=== PATIENT | male | born 1945 | race Caucasian/White ===

== ENCOUNTER → 2016-06-22 | Outpatient (CLI) | payer MEDICARE ==
--- NOTE | 2016-06-22 12:11 | FL ---
EXAMINATION TYPE: FL UGI air w esophagus DATE OF EXAM: 06/22/2016 11:45 AM COMPARISON: NONE HISTORY: R13.12 Dysphagia oropharyngeal phase TECHNIQUE: A double contrast UGI study is performed. FINDINGS: [employer] image of the abdomen shows no gross abnormality. The esophagus shows normal motility and emptying into the stomach. No evidence of hiatal hernia or s tricture noted. Single contrast esophagram fails to demonstrate evidence for aspiration penetration. There is no evidence for mass or diverticulum. The stomach shows normal distensibility, peristalsis, and mucosal folds. No evidence of any mass or ulcer disease. No significant gastroesophageal reflux was seen during real time performance of this study. The duodenal bulb, sweep, and proximal small bowel loops are unremarkable. IMPRESSION: Normal upper GI study.
== END | disposition home or self-care (01) ==
LOC: RADFLWHC 10:55
PROVIDERS: ATTEND Family Medicine
DX: R13.12 Dysphagia, oropharyngeal phase (principal)
CPT/HCPCS: 74246

== ENCOUNTER → 2016-07-18 | Outpatient (CLI) | payer MEDICARE ==
[2016-07-21 00:43] LABS: Chicken Meat IgG < 2.0 mcg/mL (< 2.0); Pork IgG < 2.0 mcg/mL (< 2.0)
[2016-07-21 00:44] LABS: Corn IgG 2.3 mcg/mL (< 2.0); Peanut IgG < 2.0 mcg/mL (< 2.0); Potato IgG < 2.0 mcg/mL (< 2.0); Soybean IgG < 2.0 mcg/mL (< 2.0); Tomato IgG < 2.0 mcg/mL (< 2.0); Wheat IgG 3.4 mcg/mL (< 2.0)
== END | disposition home or self-care (01) ==
LOC: LABWHC1 10:52
PROVIDERS: ATTEND Otolaryngology
DX: J30.89 Other allergic rhinitis (principal)
CPT/HCPCS: 36415; 86001

== ENCOUNTER → 2016-08-24 | Outpatient (CLI) | payer MEDICARE ==
[2016-08-24 10:42] LABS: Blood Urea Nitrogen 16 mg/dL (9-20); Non-African American GFR(MDRD) >60 (>60 ml/min/1.73 sqM)
--- NOTE | 2016-08-24 12:35 | CT ---
EXAMINATION TYPE: CT ChestAbdPelvis w con DATE OF EXAM: 08/24/2016 COMPARISON: CT CAP February 16, 2016 and older studies. HISTORY: Lymphoma CT DLP: 3839 mGycm. Automated Exposure Control for Dose Reduction was Utilized. CONTRAST: CT scan of the thorax, abdomen and pelvis is performed with IV Contrast, patient injected with 100 ml mL of Omnipaque 300. FINDINGS: LUNGS: Exam is slightly suboptimal as there is degradation by respiratory motion artifact limiting ev aluation for subcentimeter nodularity. Dependent atelectatic change in both lung bases is present the re is no concerning parenchymal nodule or mass. No pleural effusion or pneumothorax is seen bilateral ly. MEDIASTINUM: There are no greater than 1 cm hilar or mediastinal lymph nodes. No pericardial effusi on is seen. Heart size is mildly enlarged on current study. OTHER: Small degree of bilateral gynecomastia is redemonstrated. There is right internal jugular Medi port catheter with tip in SVC redemonstrated. LIVER/GB: No significant abnormality is appreciated. PANCREAS: Some generalized fat replaced atrophy of pancreas is again seen. SPLEEN: No significant abnormality is seen. ADRENALS: Slight thickening to both adrenal glands is felt to reflect hyperplasia. KIDNEYS: No significant abnormality is seen. BOWEL: Oral contrast does not reach level of colon. There is no suspicious small or large bowel dilat ation. There are few diverticula in the sigmoid colon. There is no CT evidence for acute diverticulit is. Normal-appearing appendix is noted. GENITAL ORGANS: Heterogeneous enlarged prostate gland consistent with BPH is redemonstrated with cent ral zone calcifications. LYMPH NODES: No greater than 1cm abdominal or pelvic lymph nodes are clearly appreciated. There is 1. 5 x 1.0 cm irregular residual soft tissue aortocaval region just anterior to low-lying chronic centra l posterior right hemidiaphragm not significantly changed from most recent CT is significantly improv ed since older exams 2013. OSSEOUS STRUCTURES: Multilevel spurring in the thoracolumbar spine is seen. There is heterotopic ossi fication near left greater trochanter. There is moderate joint space loss in both hips. Vacuum disc p henomenon at several levels in the lumbar spine is seen. Spinal canal effacement or stenosis L2-L3 le collette is redemonstrated. OTHER: There is mild calcified atherosclerotic change of aorta extending into pelvic branch vessels. There is multilevel facet arthropathy in the thoracolumbar spine. Multilevel spurring in the spine is present. IMPRESSION: No evidence of new adenopathy in the thorax abdomen or pelvis. Perhaps minimal residual t issue at area of original neoplasm aortocaval region kidney level stable from most recent study.
== END | disposition home or self-care (01) ==
LOC: RADCTMAIN 10:00
PROVIDERS: ATTEND Internal Medicine Hematology & Oncology
DX: C83.33 Diffuse large B-cell lymphoma, intra-abdominal lymph nodes (principal); C83.39 Diffuse large B-cell lymphoma, extranodal and solid organ sites
CPT/HCPCS: 82565; 84520; 71260; 74177; 36415; Q9967; 70491

== ENCOUNTER → 2016-08-24 | Outpatient (CLI) | payer MEDICARE ==
--- NOTE | 2016-08-24 12:26 | CT ---
EXAMINATION TYPE: CT soft tissue neck w con DATE OF EXAM: 08/24/2016 HISTORY: Vocal cord paralysis COMPARISON: NONE CT DLP: 796 mGycm. Automated Exposure Control for Dose Reduction was Utilized. TECHNIQUE: CT scan of the neck is performed with IV Contrast, patient injected with 100 ml mL of Omn ipaque 300, axial images are obtained, coronal and sagittal reformatted images are reviewed. FINDINGS: Airway: No gross abnormality seen. Parotid/submandibular glands: No gross abnormality seen. Carotid/Vascular Structures: There is mild to moderate mixed plaque at carotid bulb level bilaterally extending into proximal internal carotid arteries, left slightly more prominent than right. No signi ficant stenosis is evident. Osseous Structures: There is moderate disc space narrowing and spurring C5-C6 and C6-C7 levels. Other: There is partial visualization of right internal jugular Mediport catheter. Please refer to same day CT cap report for complete details of the upper thorax. No suspicious greater than 1 cm neck adenopathy is clearly seen bilaterally. IMPRESSION: No significant abnormality is seen to account for patient's symptoms.
== END | disposition home or self-care (01) ==
LOC: RADCTMAIN 09:49
PROVIDERS: ATTEND Otolaryngology
DX: J38.01 Paralysis of vocal cords and larynx, unilateral (principal)
CPT/HCPCS: 70491; 36415; Q9967

== ENCOUNTER 2016-10-10 07:13 | Emergency (ER) | payer MEDICARE ==
[2016-10-10] MEDS ORDERED: SODIUM CHLORIDE 0.9% 1,000 ML IV STA (07:39)
[2016-10-10] MEDS ORDERED: RX INFO: IV CONTRAST WAS GIVEN 1 EACH MISC MISCELLANE PRN (07:39)
--- NOTE | 2016-10-10 07:43 | ED ---
General Adult HPI - General Chief complaint: Abdominal Pain Stated complaint: abd pain Time Seen by Provider: 10/10/16 07:30 Source: patient, family, RN notes reviewed Mode of arrival: ambulatory Limitations: no limitations - History of Present Illness Initial comments: Patient is a pleasant 71-year-old male presenting to the emergency department complaining of abdominal discomfort and constipation. Patient has felt constipated the past 2 or 3 days. Patient is starting to get discomfort to his lower abdomen, more so on the left side. Patient is having urinary frequency and urgency and decreased amounts. No dysuria. No fevers. No diarrhea. No nausea vomiting. No fevers. No history of similar symptoms previously. - Related Data Home Medications Medication Instructions Recorded Confirmed Multivitamins, Thera [Multivitamin 1 tab PO DAILY 07/16/13 10/10/16 (formulary)] Simvastatin [Simvastatin] 20 mg PO HS 07/17/13 10/10/16 Antiarthritic Combination No.2 1 tab PO BID 09/11/13 10/10/16 [Glucosamine-Chondroitin] Fish Oil/Dha/Epa [Fish Oil 1,200 1 cap PO BID 07/01/16 10/10/16 mg Fish Oil] metFORMIN HCL [Glucophage] 1 tab PO BID 07/01/16 10/10/16 Acetaminophen [Tylenol] 650 mg PO DAILY PRN 10/10/16 10/10/16 Apixaban [Eliquis] 5 mg PO BID 10/10/16 10/10/16 Diltiazem HCl 120 mg PO BID 10/10/16 10/10/16 Previous Rx's Medication Instructions Recorded Hydrocodone/Acetaminophen [[place] 2 each PO Q6HR PRN #20 tab 10/10/16 5-325] Tamsulosin [Flomax] 0.4 mg PO DAILY #14 cap 10/10/16 Allergies Allergy/AdvReac Type Severity Reaction Status Date / Time lactose AdvReac Diarrhea Verified 10/10/16 08:39 Review of Systems ROS Statement: Those systems with pertinent positive or pertinent negative responses have been documented in the HPI. ROS Other: All systems not noted in ROS Statement are negative. Constitutional: Denies: fever Eyes: Denies: eye pain ENT: Denies: ear pain Respiratory: Denies: cough Cardiovascular: Denies: chest pain Endocrine: Denies: fatigue Gastrointestinal: Reports: abdominal pain, constipation. Denies: nausea, vomiting, diarrhea Genitourinary: Reports: urgency, frequency. Denies: dysuria, hematuria, discharge Musculoskeletal: Denies: back pain Skin: Denies: rash Neurological: Denies: weakness Past Medical History Past Medical History: Atrial Flutter, Cancer, Diabetes Mellitus, Hyperlipidemia , Hypertension, Osteoarthritis (OA), Skin Disorder Additional Past Medical History / Comment(s): sinus problems, ventral hernia, eczema, arthritis; FOUND TO HAVE ABD MASS, NEAR AORTA AND VENA CAVA -. 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 Past Anesthesia/Blood Transfusion Reactions: No Reported Reaction Past Psychological History: No Psychological Hx Reported Smoking Status: Former smoker Past Alcohol Use History: Rare Past Drug Use History: None Reported - Past Family History Sister(s) Family Medical History: Cancer General Exam Limitations: no limitations General appearance: alert, in no apparent distress Head exam: Present: atraumatic, normocephalic Eye exam: Present: normal appearance, PERRL ENT exam: Present: normal oropharynx Neck exam: Present: normal inspection Respiratory exam: Present: normal lung sounds bilaterally Cardiovascular Exam: Present: regular rate, normal rhythm Expanded Peripheral pulses: 2+: Posterior Tibialis (R), Posterior Tibialis (L) GI/Abdominal exam: Present: soft, tenderness (Mild tenderness in the umbilical, suprapubic, and left lower quadrant.), normal bowel sounds. Absent: distended, guarding, rebound, rigid, pulsatile mass Extremities exam: Present: normal inspection. Absent: pedal edema, calf tenderness Neurological exam: Present: alert Psychiatric exam: Present: normal affect, normal mood Skin exam: Present: normal color Course Vital Signs 10/10/16 10/10/16 10/10/16 07:14 07:29 08:47 Temperature 97.0 F L Pulse Rate 67 71 Respiratory 17 19 Rate Blood Pressure 207/88 199/88 171/79 O2 Sat by Pulse 97 93 L Oximetry Medical Decision Making - Medical Decision Making Patient reexamined and resting comfortably in bed. Patient and family were updated on results. - Lab Data Result diagrams: 10/10/16 08:17 10/10/16 08:17 Lab Results 10/10/16 10/10/16 10/10/16 Range/Units 07:22 08:17 08:17 WBC 9.7 (3.8-10.6) k/uL RBC 5.25 (4.30-5.90) m/uL Hgb 15.5 (13.0-17.5) gm/dL Hct 45.4 (39.0-53.0) % MCV 86.4 (80.0-100.0) fL MCH 29.5 (25.0-35.0) pg MCHC 34.1 (31.0-37.0) g/dL RDW 14.2 (11.5-15.5) % Plt Count 132 L (150-450) k/uL Neutrophils % 76 % Lymphocytes % 14 % Monocytes % 7 % Eosinophils % 1 % Basophils % 0 % Neutrophils # 7.4 (1.3-7.7) k/uL Lymphocytes # 1.4 (1.0-4.8) k/uL Monocytes # 0.6 (0-1.0) k/uL Eosinophils # 0.1 (0-0.7) k/uL Basophils # 0.0 (0-0.2) k/uL PT (9.0-12.0) sec INR (<1.2) APTT (22.0-30.0) sec Sodium 139 (137-145) mmol/L Potassium 5.1 (3.5-5.1) mmol/L Chloride 107 (98-107) mmol/L Carbon Dioxide 20 L (22-30) mmol/L Anion Gap 12 mmol/L BUN 17 (9-20) mg/dL Creatinine 0.82 (0.66-1.25) mg/dL Est GFR (MDRD) Af Amer >60 (>60 ml/min/1.73 sqM) Est GFR (MDRD) Non-Af >60 (>60 ml/min/1.73 sqM) Glucose 164 H (74-99) mg/dL Calcium 8.8 (8.4-10.2) mg/dL Total Bilirubin 1.4 H (0.2-1.3) mg/dL AST 59 (17-59) U/L ALT 26 (21-72) U/L Alkaline Phosphatase 85 (38-126) U/L Total Protein 7.7 (6.3-8.2) g/dL Albumin 4.6 (3.5-5.0) g/dL Amylase <30 L (30-110) U/L Lipase 36 (23-300) U/L Urine Color Light Yellow Urine Appearance Clear (Clear) Urine pH 7.0 (5.0-8.0) Ur Specific [place] 1.009 (1.001-1.035) Urine Protein Trace H (Negative) Urine Glucose (UA) 2+ H (Negative) Urine Ketones Negative (Negative) Urine Blood Moderate H (Negative) Urine Nitrite Negative (Negative) Urine Bilirubin Negative (Negative) Urine Urobilinogen <2.0 (<2.0) mg/dL Ur Leukocyte Esterase Negative (Negative) Urine RBC 4 (0-5) /hpf Urine WBC 1 (0-5) /hpf Urine Mucus Rare H (None) /hpf /09/19 Range/Units 08:17 WBC (3.8-10.6) k/uL RBC (4.30-5.90) m/uL Hgb (13.0-17.5) gm/dL Hct (39.0-53.0) % MCV (80.0-100.0) fL MCH (25.0-35.0) pg MCHC (31.0-37.0) g/dL RDW (11.5-15.5) % Plt Count (150-450) k/uL Neutrophils % % Lymphocytes % % Monocytes % % Eosinophils % % Basophils % % Neutrophils # (1.3-7.7) k/uL Lymphocytes # (1.0-4.8) k/uL Monocytes # (0-1.0) k/uL Eosinophils # (0-0.7) k/uL Basophils # (0-0.2) k/uL PT 11.8 (9.0-12.0) sec INR 1.2 H (<1.2) APTT 24.1 (22.0-30.0) sec Sodium (137-145) mmol/L Potassium (3.5-5.1) mmol/L Chloride (98-107) mmol/L Carbon Dioxide (22-30) mmol/L Anion Gap mmol/L BUN (9-20) mg/dL Creatinine (0.66-1.25) mg/dL Est GFR (MDRD) Af Amer (>60 ml/min/1.73 sqM) Est GFR (MDRD) Non-Af (>60 ml/min/1.73 sqM) Glucose (74-99) mg/dL Calcium (8.4-10.2) mg/dL Total Bilirubin (0.2-1.3) mg/dL AST (17-59) U/L ALT (21-72) U/L Alkaline Phosphatase (38-126) U/L Total Protein (6.3-8.2) g/dL Albumin (3.5-5.0) g/dL Amylase (30-110) U/L Lipase (23-300) U/L Urine Color Urine Appearance (Clear) Urine pH (5.0-8.0) Ur Specific [place] (1.001-1.035) Urine Protein (Negative) Urine Glucose (UA) (Negative) Urine Ketones (Negative) Urine Blood (Negative) Urine Nitrite (Negative) Urine Bilirubin (Negative) Urine Urobilinogen (<2.0) mg/dL Ur Leukocyte Esterase (Negative) Urine RBC (0-5) /hpf Urine WBC (0-5) /hpf Urine Mucus (None) /hpf - Radiology Data Radiology results: report reviewed (Computed tomography scan of the abdomen pelvis shows 2 mm calculi near the left UVJ.) Disposition Clinical Impression: Ureterolithiasis Disposition: HOME SELF-CARE Condition: Stable Instructions: Kidney Stones (ED) Additional Instructions: Please follow-up with your doctor in the next couple days for recheck. Return for increased pain, fever, vomiting, worsening symptoms or other concerns. Prescriptions: Hydrocodone/Acetaminophen [[place] 5-325] 2 each PO Q6HR PRN #20 tab PRN Reason: Pain Tamsulosin [Flomax] 0.4 mg PO DAILY #14 cap Referrals: Marysol Easley MD [Primary Care Provider] - 1-2 days Time of Disposition: 10:10
[2016-10-10 08:10] LABS: Appearance,Urine Clear (Clear); Bilirubin,Urine Negative (Negative); Glucose,Urine (UA) 2+ (Negative); Ketones,Urine Negative (Negative); Leukocyte Esterase,Urine Negative (Negative); Mucus,Urine Rare /hpf; Nitrite,Urine Negative (Negative); Particle Count 376; Protein,Urine Trace (Negative); RBC,Urine 4 /hpf (0-5); Specific Gravity,Urine 1.009 (1.001-1.035); UA Billing (MACRO vs. MICRO) MICRO; Urobilinogen,Urine <2.0 mg/dL (<2.0); WBC,Urine 1 /hpf (0-5)
[2016-10-10 08:52] LABS: Basophils % (A) 0 %; CH 29.7; CHCM 34.4; Eosinophils # (A) 0.1 k/uL (0-0.7); Eosinophils % (A) 1 %; HCT 45.4 % (39.0-53.0); HDW 3.18; HGB 15.5 gm/dL (13.0-17.5); Luc # (Auto) 0.23; Luc % (Auto) 2; Lymphocytes # (A) 1.4 k/uL (1.0-4.8); Lymphocytes % (A) 14 %; MCH 29.5 pg (25.0-35.0); MCHC 34.1 g/dL (31.0-37.0); MCV 86.4 fL (80.0-100.0); Mean Platelet Volume 6.7; Monocytes # (A) 0.6 k/uL (0-1.0); Monocytes % (A) 7 %; Neutrophils # (A) 7.4 k/uL (1.3-7.7); Neutrophils % (A) 76 %; RBC 5.25 m/uL (4.30-5.90); RDW 14.2 % (11.5-15.5); WBC 9.7 k/uL (3.8-10.6)
[2016-10-10 08:54] LABS: ALT 26 U/L (21-72); AST 59 U/L (17-59); Alkaline Phosphatase 85 U/L (38-126); Amylase <30 U/L (30-110); Anion Gap 12 mmol/L; Blood Urea Nitrogen 17 mg/dL (9-20); Calcium 8.8 mg/dL (8.4-10.2); Carbon Dioxide 20 mmol/L (22-30); Chloride 107 mmol/L (98-107); Glucose 164 mg/dL (74-99); Non-African American GFR(MDRD) >60 (>60 ml/min/1.73 sqM); Sodium 139 mmol/L (137-145); Total Bilirubin 1.4 mg/dL (0.2-1.3); Total Protein 7.7 g/dL (6.3-8.2)
[2016-10-10 08:56] LABS: Potassium 5.1 mmol/L (3.5-5.1)
[2016-10-10 08:57] LABS: INR 1.2 (<1.2); Partial Thromboplastin Time 24.1 sec (22.0-30.0); Prothrombin Time 11.8 sec (9.0-12.0)
--- NOTE | 2016-10-10 09:41 | CT ---
EXAMINATION TYPE: CT abdomen pelvis w con DATE OF EXAM: 10/10/2016 COMPARISON: 08/24/2016 and to 12/12/2014 HISTORY: constipation, frequent urination, history of lymphoma CT DLP: 1762 mGycm Automated exposure control for dose reduction was used. TECHNIQUE: Helical acquisition of images was performed from the lung bases through the pelvis. CONTRAST: Performed without Oral Contrast and with IV Contrast, patient injected with 100 mL of Omnipaque 300. FINDINGS: LUNG BASES: Bilateral subsegmental dependent atelectasis. LIVER/GB: No significant abnormality is appreciated. PANCREAS: Mild pancreatic atrophy and few nonenlarged peripancreatic lymph nodes are present. SPLEEN: No significant abnormality is seen. ADRENALS: Bilateral adrenal gland nodularity has been present dating back to 12/12/2014 and most likel y represents adrenal gland hyperplasia. KIDNEYS: There is mild left perinephric fat stranding, blunting of the major and minor calyces, engor gement of the renal pelvis, and mild hydroureter all secondary to a punctate 2 mm obstructing calculu s approximately 2 cm from the ureterovesicular junction. Impression upon the posterior urinary bladde r is seen from an enlarged, heterogenous, nodular prostate gland. There is mild decrease enhancement of the left kidney in comparison to the right, relating to mild de crease in function due to the acute obstruction. FREE AIR: No free air is visualized. ABDOMINOPELVIC ADENOPATHY: 1.0 cm aortocaval lymph node is stable from the prior exams. No evidence of adenopathy is seen within the abdomen or pelvis. OSSEOUS STRUCTURES: Multilevel degenerative changes seen of the thoracolumbar and lumbosacral spine as well as the femoral acetabular joints with heterotopic ossification again noted of the left greate r trochanter. Old, healed posterior right lower rib fractures are noted. BOWEL: Sigmoid diverticulosis without evidence of diverticulitis OTHER: The abdominal aorta is of normal course and caliber. Mild calcific atheromatous changes are se en of the abdominal aorta and its branches. IMPRESSION: 1. OBSTRUCTING 2 MM CALCULUS APPROXIMATELY 2 CM FROM THE LEFT URETEROVESICULAR JUNCTION WITHIN THE DI STAL URETER CREATING MILD HYDROURETERONEPHROSIS, ASYMMETRIC RENAL FUNCTION, AND PERINEPHRIC FAT STRAN DING. NO PERINEPHRIC ABSCESS. 2. NO EVIDENCE OF ABDOMINOPELVIC ADENOPATHY.
[2016-10-10 10:24] VITALS: BP 163/75; PULSE 76; RESP 18; TEMP 98.1
== END 2016-10-10 10:24 | disposition home or self-care (01) ==
LOC: EC 07:13
DX: N20.1 Calculus of ureter (principal); I48.92 Unspecified atrial flutter; E11.9 Type 2 diabetes mellitus without complications; E78.5 Hyperlipidemia, unspecified; I10 Essential (primary) hypertension; M19.90 Unspecified osteoarthritis, unspecified site; Z85.72 Personal history of non-Hodgkin lymphomas; Z87.891 Personal history of nicotine dependence; Z91.011 Allergy to milk products; Z79.01 Long term (current) use of anticoagulants; Z79.84 Long term (current) use of oral hypoglycemic drugs; Z79.899 Other long term (current) drug therapy
CPT/HCPCS: 99284; 96360; 96361; 51798; 36415; 80053; 82150; 83690; 85025; 85610; 85730; 81001; 74177; Q9967

== ENCOUNTER 2016-12-05 08:39 | Emergency (ER) | payer MEDICARE ==
[2016-12-05] MEDS ORDERED: SODIUM CHLORIDE 0.9% 1,000 ML IV STA (09:42)
--- NOTE | 2016-12-05 09:45 | ED ---
General Adult HPI - General Chief complaint: Back Pain/Injury Stated complaint: Back Pain Time Seen by Provider: 12/05/16 09:29 Source: patient, RN notes reviewed Mode of arrival: ambulatory Limitations: no limitations - History of Present Illness Initial comments: Patient is a 71-year-old male significant past medical history for kidney stones , who presents emergency room today with a chief complaint of left lower back pain over the last week. He does not feel somewhat similar to kidney stones that is had in the past. He states he did take some [place] 7.5 for this. He states this time is feeling more,abdominal time urinating as well. Patient currently rates pain 5/10. He states is relatively comfortable. Denies any other complaints or symptoms currently. Patient denies any recent fever, chills , shortness of breath, chest pain, abdominal pain, nausea or vomiting, numbness or tingling, dysuria or hematuria, diarrhea, headaches or visual changes, or any other complaints. - Related Data Home Medications Medication Instructions Recorded Confirmed Multivitamins, Thera [Multivitamin 1 tab PO DAILY 07/16/13 12/05/16 (formulary)] Antiarthritic Combination No.2 900 mg PO BID 09/11/13 12/05/16 [Glucosamine-Chondroitin] Fish Oil/Dha/Epa [Fish Oil 1,200 1 cap PO BID 07/01/16 12/05/16 mg Fish Oil] metFORMIN HCL [Glucophage] 500 mg PO BID 07/01/16 12/05/16 Apixaban [Eliquis] 5 mg PO BID 10/10/16 12/05/16 Diltiazem HCl 120 mg PO BID 10/10/16 12/05/16 Simvastatin [Zocor] 20 mg PO HS 12/05/16 12/05/16 Previous Rx's Medication Instructions Recorded Ciprofloxacin HCl [Cipro] 500 mg PO Q12HR #14 day 12/05/16 Tamsulosin [Flomax] 0.4 mg PO DAILY #3 cap 12/05/16 Allergies Allergy/AdvReac Type Severity Reaction Status Date / Time lactose AdvReac Diarrhea Verified 12/05/16 10:14 Review of Systems ROS Statement: Those systems with pertinent positive or pertinent negative responses have been documented in the HPI. ROS Other: All systems not noted in ROS Statement are negative. Past Medical History Past Medical History: Atrial Flutter, Cancer, Diabetes Mellitus, Hyperlipidemia , Hypertension, Osteoarthritis (OA), Skin Disorder Additional Past Medical History / Comment(s): sinus problems, ventral hernia, eczema, arthritis; FOUND TO HAVE ABD MASS, NEAR AORTA AND VENA CAVA -. 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 Past Anesthesia/Blood Transfusion Reactions: No Reported Reaction Past Psychological History: No Psychological Hx Reported Smoking Status: Former smoker Past Alcohol Use History: Rare Past Drug Use History: None Reported - Past Family History Sister(s) Family Medical History: Cancer General Exam - General Exam Comments Initial Comments: General: The patient is awake and alert, in no distress, and does not appear acutely ill. Eye: Pupils are equal, round and reactive to light, extra-ocular movements are intact. No nystagmus. There is normal conjunctiva bilaterally. No signs of icterus. Ears, nose, mouth and throat: There are moist mucous membranes and no oral lesions. Neck: The neck is supple, there is no tenderness or JVD. Cardiovascular: There is a regular rate and rhythm. No murmur, rub or gallop is appreciated. Respiratory: Lungs are clear to auscultation, respirations are non-labored, breath sounds are equal. No wheezes, stridor, rales, or rhonchi. Gastrointestinal: Soft, non-distended, non-tender abdomen without masses or organomegaly noted. There is no rebound or guarding present. No CVA tenderness. Bowel sounds are unremarkable. Musculoskeletal: Normal ROM, no tenderness. Strength 5/5. Sensation intact. Pulses equal bilaterally 2+. Neurological: A&O x 3. CN II-XII intact, There are no obvious motor or sensory deficits. Coordination appears grossly intact. Speech is normal. Skin: Skin is warm and dry and no rashes or lesions are noted. Psychiatric: Cooperative, appropriate mood & affect, normal judgment. Limitations: no limitations Course Vital Signs 12/05/16 09:03 Temperature 98.2 F Pulse Rate 63 Respiratory 18 Rate Blood Pressure 165/74 O2 Sat by Pulse 97 Oximetry Medical Decision Making - Medical Decision Making Patient's CT reviewed and does show left-sided UVJ stone measuring 4 mm. Patient's labs been reviewed. Small amount of white cells in the urinalysis. Will be covered with antibiotic. Patient's resting comfortably here in the emergency room setting any pain medication. Patient will be discharged home with Flomax, antibiotic. He states he will use Tylenol for pain as needed. He does have [place] as well. Patient advised follow-up the family doctor or urologist over the next 2 days return to emergency room if any symptoms increase or worsen or for any other concerns. - Lab Data Result diagrams: 12/05/16 09:51 12/05/16 09:51 Lab Results 12/05/16 12/05/16 12/05/16 Range/Units 09:51 09:51 09:51 WBC 11.1 H (3.8-10.6) k/uL RBC 4.91 (4.30-5.90) m/uL Hgb 14.2 (13.0-17.5) gm/dL Hct 43.1 (39.0-53.0) % MCV 87.9 (80.0-100.0) fL MCH 29.0 (25.0-35.0) pg MCHC 33.0 (31.0-37.0) g/dL RDW 15.2 (11.5-15.5) % Plt Count 162 (150-450) k/uL Neutrophils % 76 % Lymphocytes % 13 % Monocytes % 7 % Eosinophils % 1 % Basophils % 0 % Neutrophils # 8.4 H (1.3-7.7) k/uL Lymphocytes # 1.4 (1.0-4.8) k/uL Monocytes # 0.8 (0-1.0) k/uL Eosinophils # 0.1 (0-0.7) k/uL Basophils # 0.1 (0-0.2) k/uL Sodium 141 (137-145) mmol/L Potassium 4.1 (3.5-5.1) mmol/L Chloride 107 (98-107) mmol/L Carbon Dioxide 23 (22-30) mmol/L Anion Gap 11 mmol/L BUN 16 (9-20) mg/dL Creatinine 0.78 (0.66-1.25) mg/dL Est GFR (MDRD) Af Amer >60 (>60 ml/min/1.73 sqM) Est GFR (MDRD) Non-Af >60 (>60 ml/min/1.73 sqM) Glucose 142 H (74-99) mg/dL Calcium 8.8 (8.4-10.2) mg/dL Total Bilirubin 0.5 (0.2-1.3) mg/dL AST 21 (17-59) U/L ALT 28 (21-72) U/L Alkaline Phosphatase 70 (38-126) U/L Total Protein 7.4 (6.3-8.2) g/dL Albumin 4.2 (3.5-5.0) g/dL Amylase <30 L (30-110) U/L Lipase 47 (23-300) U/L Urine Color Yellow Urine Appearance Clear (Clear) Urine pH 6.0 (5.0-8.0) Ur Specific [place] 1.007 (1.001-1.035) Urine Protein Negative (Negative) Urine Glucose (UA) Negative (Negative) Urine Ketones Negative (Negative) Urine Blood Moderate H (Negative) Urine Nitrite Negative (Negative) Urine Bilirubin Negative (Negative) Urine Urobilinogen <2.0 (<2.0) mg/dL Ur Leukocyte Esterase Moderate H (Negative) Urine RBC 11 H (0-5) /hpf Urine WBC 23 H (0-5) /hpf Urine Bacteria Rare H (None) /hpf Urine Mucus Rare H (None) /hpf Disposition Clinical Impression: Kidney stone Disposition: HOME SELF-CARE Condition: Good Instructions: Kidney Stones (ED) Additional Instructions: Please use medication as discussed. Please follow-up with family doctor in the next 2 days of symptoms have not improved. Please return to emergency room if the symptoms increase or worsen or for any other concerns. Prescriptions: Ciprofloxacin HCl [Cipro] 500 mg PO Q12HR #14 day Tamsulosin [Flomax] 0.4 mg PO DAILY #3 cap Referrals: Marysol Easley MD [Primary Care Provider] - 1-2 days Time of Disposition: 11:47
[2016-12-05 10:11] LABS: Basophils # (A) 0.1 k/uL (0-0.2); Basophils % (A) 0 %; CH 28.9; CHCM 32.9; Eosinophils # (A) 0.1 k/uL (0-0.7); Eosinophils % (A) 1 %; HCT 43.1 % (39.0-53.0); HDW 3.02; HGB 14.2 gm/dL (13.0-17.5); Luc # (Auto) 0.34; Luc % (Auto) 3; Lymphocytes # (A) 1.4 k/uL (1.0-4.8); Lymphocytes % (A) 13 %; MCV 87.9 fL (80.0-100.0); Mean Platelet Volume 6.7; Monocytes # (A) 0.8 k/uL (0-1.0); Monocytes % (A) 7 %; Neutrophils # (A) 8.4 k/uL (1.3-7.7); Neutrophils % (A) 76 %; RBC 4.91 m/uL (4.30-5.90); RDW 15.2 % (11.5-15.5); WBC 11.1 k/uL (3.8-10.6); WBC (Perox) 10.55
[2016-12-05 10:14] LABS: Appearance,Urine Clear (Clear); Bacteria,Urine Rare /hpf; Bilirubin,Urine Negative (Negative); Glucose,Urine (UA) Negative (Negative); Ketones,Urine Negative (Negative); Leukocyte Esterase,Urine Moderate (Negative); Mucus,Urine Rare /hpf; Nitrite,Urine Negative (Negative); Particle Count 1271; Protein,Urine Negative (Negative); RBC,Urine 11 /hpf (0-5); Specific Gravity,Urine 1.007 (1.001-1.035); UA Billing (MACRO vs. MICRO) MICRO; Urobilinogen,Urine <2.0 mg/dL (<2.0); WBC,Urine 23 /hpf (0-5)
--- NOTE | 2016-12-05 10:15 | XR ---
EXAMINATION TYPE: XR KUB DATE OF EXAM: 12/05/2016 COMPARISON: NONE HISTORY: Pain TECHNIQUE: Single supine KUB image of the abdomen is obtained FINDINGS: Small bowel demonstrates no evidence for dilatation or air fluid levels. Gas and fecal material is seen in non-distended colon. No convincing evidence for pneumoperitoneum. No unusual calcifications. The lung bases are clear. The osseous structures are intact. IMPRESSION: 1. Overall nonobstructive bowel gas pattern.
[2016-12-05 10:18] LABS: ALT 28 U/L (21-72); AST 21 U/L (17-59); Alkaline Phosphatase 70 U/L (38-126); Amylase <30 U/L (30-110); Anion Gap 11 mmol/L; Blood Urea Nitrogen 16 mg/dL (9-20); Calcium 8.8 mg/dL (8.4-10.2); Carbon Dioxide 23 mmol/L (22-30); Chloride 107 mmol/L (98-107); Glucose 142 mg/dL (74-99); Non-African American GFR(MDRD) >60 (>60 ml/min/1.73 sqM); Potassium 4.1 mmol/L (3.5-5.1); Sodium 141 mmol/L (137-145); Total Bilirubin 0.5 mg/dL (0.2-1.3); Total Protein 7.4 g/dL (6.3-8.2)
--- NOTE | 2016-12-05 11:11 | CT ---
EXAMINATION TYPE: CT abdomen pelvis wo con DATE OF EXAM: 12/05/2016 COMPARISON: NONE HISTORY: Patient complains of left flank pain and gross hematuria. Patient has a history of prior st ones. CT DLP: 1232.4 mGycm Examination of the solid and hollow viscera is limited given the lack of contrast. FINDINGS: LUNG BASES: No evidence for nodule. No evidence for infiltrate. LIVER/GB: The gallbladder is unremarkable. No space-occupying hepatic lesion. PANCREAS: No pancreatic mass identified. No inflammatory process seen. SPLEEN: No evidence for splenomegaly. No intrasplenic lesions seen. ADRENALS: Nonspecific adrenal nodularity. KIDNEYS: Mild left-sided hydroureteronephrosis secondary to a distal left ureteral 3.9 mm calculus. C alculus is approximately 4 cm from the UVJ. No additional renal calculi seen. Mild left renal strandi ng. Superimposed infection is not excluded. No renal masses identified at this time.. BOWEL: Appendix has a normal appearance. No evidence of bowel obstruction. No inflammatory process. Lymph nodes: No evidence for adenopathy greater than 1 cm. Abdominal aorta: Atheromatous changes seen. No evidence for aneurysm. Genital organs: Prostate glandular enlargement and calcifications. Other: No significant abnormality. IMPRESSION: Mild left-sided hydroureteronephrosis secondary to a distal left ureteral 3.9 mm calculus. Calculus i s approximately 4 cm from the UVJ.
[2016-12-05 12:00] VITALS: PULSE 77; RESP 16; TEMP 97.9
[2016-12-05 17:21] VITALS: BP 177/83
== END 2016-12-05 12:40 | disposition home or self-care (01) ==
LOC: EC 08:39
DX: N20.0 Calculus of kidney (principal); E78.5 Hyperlipidemia, unspecified; I10 Essential (primary) hypertension; E11.9 Type 2 diabetes mellitus without complications; M19.90 Unspecified osteoarthritis, unspecified site; Z87.891 Personal history of nicotine dependence; Z79.01 Long term (current) use of anticoagulants; Z79.84 Long term (current) use of oral hypoglycemic drugs; Z79.899 Other long term (current) drug therapy; Z91.048 Other nonmedicinal substance allergy status; Z86.79 Personal history of other diseases of the circulatory system
CPT/HCPCS: 99284 ×2; 96374 ×2; 96361 ×2; 36415; 80053; 82150; 83690; 85025; 81001; 74000; 74176; J1642

== ENCOUNTER → 2017-03-17 | Outpatient (CLI) | payer MEDICARE ==
[2017-03-17 14:30] LABS: Blood Urea Nitrogen 16 mg/dL (9-20)
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
== END | disposition home or self-care (01) ==
LOC: RADPROMAIN 13:52
PROVIDERS: ATTEND Internal Medicine Hematology & Oncology
DX: C83.33 Diffuse large B-cell lymphoma, intra-abdominal lymph nodes (principal); C83.39 Diffuse large B-cell lymphoma, extranodal and solid organ sites; E27.9 Disorder of adrenal gland, unspecified
CPT/HCPCS: 82565; 84520; 71260; 74177; Q9967; J1642

== ENCOUNTER → 2017-09-19 | Outpatient (CLI) | payer MEDICARE ==
[2017-09-19 14:46] LABS: Blood Urea Nitrogen 19 mg/dL (9-20)
--- NOTE | 2017-09-19 15:36 | CT ---
EXAMINATION TYPE: CT ChestAbdPelvis w con DATE OF EXAM: 09/19/2017 COMPARISON: 03/17/2017 and 12/05/2016 HISTORY: 72-year-old male with history of non-Hodgkin's lymphoma. TECHNIQUE: Contiguous axial scanning of the chest, abdomen, and pelvis performed with IV Contrast, pa tient injected with 100 mL of Isovue M300. Delayed images through the kidneys were obtained. Coronal/ sagittal reconstructions performed. CT DLP: 2788.2 mGycm Automated exposure control for dose reduction was used. FINDINGS: Chest: Right anterior chest wall injection port with catheter tip at the lower SVC. Heart normal size without pericardial effusion. Coronary vessel calcifications are present. Aorta normal caliber with conventional branching anatomy and very mild atherosclerotic arch calcifica tions. Large caliber to the main right and left pulmonary arteries at 2.8 and 2.5 cm, respectively, suggesti ng underlying pulmonary arterial hypertension. No thoracic lymphadenopathy by CT size criteria. Mild bilateral gynecomastia is noted. Some reticular changes in the lower lungs could represent underlying interstitial scarring/fibrosis. No consolidation or pleural effusion. ABDOMEN: Large patient body habitus causing artifact limiting detailed assessment of the liver. Portal venous system appears patent. No biliary ductal dilatation. Gallbladder, kidneys, spleen, and pancreas appear within normal limits. Stable mild diffuse thickening of the bilateral adrenal glands suggesting adrenal hyperplasia. No dilated small bowel, free fluid, or free air. No mesenteric or retroperitoneal lymphadenopathy. Normal appendix. No significant stool burden. Mild proximal sigmoid diverticulosis without pericoloni c inflammatory change. PELVIS: Prostate gland enlargement 5.2 cm wide. Bladder incompletely distended. No abnormal fluid collection in the pelvis or pelvic lymphadenopathy. BONES: Degenerative changes at the hips and SI joints. Bridging anterior endplate spondylosis compatible wit h DISH. Degenerative changes mid to lower lumbar spine with grade 1 anterolisthesis L5-S1. No osseous destructive process seen. IMPRESSION: 1. STABLE EXAM WITHOUT SUSPICIOUS LYMPHADENOPATHY OR MASS TO SUGGEST RECURRENT DISEASE. 2. POSSIBLE UNDERLYING PULMONARY ARTERIAL HYPERTENSION, STABLE CHANGES OF THE ADRENAL GLANDS LIKELY R EFLECTING ADRENAL HYPERPLASIA, MILD PROXIMAL SIGMOID DIVERTICULOSIS, AND PROSTATOMEGALY (5.2 CM WIDE) .
== END | disposition home or self-care (01) ==
LOC: RADPROMAIN 13:29
PROVIDERS: ATTEND Internal Medicine Hematology & Oncology
DX: Z08 Encounter for follow-up examination after completed treatment for malignant neoplasm (principal); Z85.72 Personal history of non-Hodgkin lymphomas
CPT/HCPCS: 82565; 84520; 71260; 74177; J1642; Q9967

== ENCOUNTER → 2018-03-16 | Outpatient (CLI) | payer MEDICARE ==
[2018-03-16 12:16] LABS: Blood Urea Nitrogen 20 mg/dL (9-20)
--- NOTE | 2018-03-16 13:45 | CT ---
EXAMINATION TYPE: CT ChestAbdPelvis w con DATE OF EXAM: 03/16/2018 COMPARISON: 09/19/2017 HISTORY: Follow up of lymphoma CT DLP: 3272.6 mGycm Automated exposure control for dose reduction was used. CONTRAST: CT scan of the chest, abdomen and pelvis is performed with Oral Contrast and with IV Contrast, patien t injected with 100 mL of Isovue 300. FINDINGS: CHEST: Right anterior chest wall injection port with catheter tip at the lower SVC. Heart normal size withou t pericardial effusion. Coronary vessel calcifications are present. Aorta normal caliber with conventional branching anatomy and very mild atherosclerotic arch calcifica tions. Large caliber to the main right and left pulmonary arteries at 2.8 and 2.5 cm, respectively, suggesti ng underlying pulmonary arterial hypertension. No thoracic lymphadenopathy by CT size criteria. Mild bilateral gynecomastia is noted. Some reticular changes in the lower lungs could represent underlying interstitial scarring/fibrosis. No consolidation or pleural effusion. Pleural-based triangular density in the right lower lobe is sta ble likely inflammatory and related to pleural thickening. ABDOMEN: Large patient body habitus causing artifact limiting detailed assessment of the liver. Portal venous system appears patent. No biliary ductal dilatation. Gallbladder, kidneys, spleen, and pancreas appear within normal limits. Stable mild diffuse thickening of the bilateral adrenal glands suggesting adrenal hyperplasia. No dil ated small bowel, free fluid, or free air. No mesenteric or retroperitoneal lymphadenopathy. Normal appendix. No significant stool burden. Mild proximal sigmoid diverticulosis without pericolonic inflammatory change. PELVIS: Prostate gland enlargement 5.2 cm wide. Bladder incompletely distended. No abnormal fluid collection in the pelvis or pelvic lymphadenopathy. BONES: Degenerative changes at the hips and SI joints. Bridging anterior endplate spondylosis compati ble with DISH. Degenerative changes mid to lower lumbar spine with grade 1 anterolisthesis L5-S1. No osseous destructive process seen. IMPRESSION: 1. STABLE EXAM WITHOUT SUSPICIOUS LYMPHADENOPATHY OR MASS TO SUGGEST RECURRENT DISEASE. 2. POSSIBLE U NDERLYING PULMONARY ARTERIAL HYPERTENSION, STABLE CHANGES OF THE ADRENAL GLANDS LIKELY REFLECTING ADR ENAL HYPERPLASIA, MILD PROXIMAL SIGMOID DIVERTICULOSIS, AND PROSTATOMEGALY (5.2 CM WIDE).
== END | disposition home or self-care (01) ==
LOC: RADCTMAIN 11:24
PROVIDERS: ATTEND Internal Medicine Hematology & Oncology
DX: Z03.89 Encounter for observation for other suspected diseases and conditions ruled out (principal); K57.30 Diverticulosis of large intestine without perforation or abscess without bleeding; N40.0 Benign prostatic hyperplasia without lower urinary tract symptoms; C83.33 Diffuse large B-cell lymphoma, intra-abdominal lymph nodes
CPT/HCPCS: 82565; 84520; 71260; 74177; J1642; Q9967

== ENCOUNTER → 2018-09-10 | Outpatient (CLI) | payer MEDICARE ==
[2018-09-10 07:37] LABS: HCT 45.7 % (39.0-53.0); HGB 15.1 gm/dL (13.0-17.5); MCH 28.6 pg (25.0-35.0); MCHC 32.9 g/dL (31.0-37.0); Mean Platelet Volume 7.3; Platelet Count 149 k/uL (150-450); RBC 5.26 m/uL (4.30-5.90); RDW 15.8 % (11.5-15.5); WBC 6.8 k/uL (3.8-10.6)
[2018-09-10 08:22] LABS: Appearance,Urine Clear (Clear); Bilirubin,Urine Negative (Negative); Blood,Urine Trace (Negative); Color,Urine Yellow; Glucose,Urine (UA) Trace (Negative); Ketones,Urine Negative (Negative); Leukocyte Esterase,Urine Negative (Negative); Mucus,Urine Rare /hpf; Nitrite,Urine Negative (Negative); PH, Urine 5.5 (5.0-8.0); Protein,Urine Trace (Negative); RBC,Urine <1 /hpf (0-5); Specific Gravity,Urine 1.019 (1.001-1.035); Urobilinogen,Urine <2.0 mg/dL (<2.0); WBC,Urine <1 /hpf (0-5)
[2018-09-10 10:35] LABS: African American GFR (CKD) 104.2 (60.0-200.0); Albumin 4.2 g/dL (3.80-4.90); Albumin/Globulin Ratio 1.91 (1.60-3.17); Anion Gap 7.6 mmol/L (4.00-12.00); BUN/Creat Ratio 28.75 Ratio (12.00-20.00); Calcium 8.7 mg/dL (8.7-10.3); Carbon Dioxide 24.4 mmol/L (21.6-31.8); Globulin 2.2 g/dL (1.6-3.3); LDL Cholesterol,Calculated 73.4 mg/dL (0.0-131.0); Potassium 3.8 mmol/L (3.5-5.5); Total Bilirubin 0.6 mg/dL (0.2-1.2); Total Protein 6.4 g/dL (6.2-8.2); VLDL Calculation 43.6 mg/dL (5.00-40.00)
[2018-09-10 10:44] LABS: Hemoglobin A1C 6.3 % (4.0-6.0)
[2018-09-10 12:15] LABS: Folate, Serum 23.9 ng/mL; Vitamin D 25 Hydroxy 12.8 ng/mL (30.0-100.0)
[2018-09-11 14:11] LABS: Lyme IgG/IgM 0.08 Index
== END | disposition home or self-care (01) ==
LOC: LABWHC1 06:40
PROVIDERS: ATTEND Family Medicine
DX: E55.9 Vitamin D deficiency, unspecified (principal); Z79.899 Other long term (current) drug therapy; I10 Essential (primary) hypertension; E11.21 Type 2 diabetes mellitus with diabetic nephropathy; R41.3 Other amnesia
CPT/HCPCS: 36415; 80053; 80061; 81001; 82306; 82550; 82607; 82746; 83036; 84443; 85027; 86038; 86618; 86780

== ENCOUNTER 2018-09-11 22:01 | Emergency (ER) | payer MEDICARE ==
[2018-09-11] MEDS ORDERED: MORPHINE SULFATE 4 MG/ML SYRINGE IM STA (22:35)
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
--- NOTE | 2018-09-11 23:10 | CT ---
EXAM: CT Lumbar Spine Without Intravenous Contrast CLINICAL HISTORY: ITS.REASON CT Reason: Pain TECHNIQUE: Axial computed tomography images of the lumbar spine without intravenous contrast. CTDI is 54.8 mGy and DLP is 1872.4 mGy-cm. This CT exam was performed using one or more of the following dose reduction techniques: automated exposure control, adjustment of the mA and/or kV according to patient size, and/or use of iterative reconstruction technique. COMPARISON: None FINDINGS: Bones: Osteopenia. Mild scoliosis. No acute fracture or bony lesion. Disc spaces: Degenerative changes of the spine. Mild degenerative retrolisthesis of L2 on L3. Mild grade 1 anterolisthesis of L4 on L5. Moderate spinal canal stenosis at L2-3. Moderate to severe spinal canal stenosis at L3-4. Severe spinal canal stenosis at L4-5. Mild bilateral neural foraminal stenoses at L2-3. Moderate left greater than right neural foraminal stenoses at L3-4. Mild bilateral neural foraminal stenoses at L4-5. Moderate bilateral neural foraminal stenoses at L5-S1. Soft tissues: Dependent edema in the posterior soft tissues. Other: Atherosclerotic changes of the vasculature. Nodular thickening of bilateral adrenal glands. Mild diverticulosis partially visualized. IMPRESSION: 1. No acute fracture identified. 2. Degenerative changes of the spine. Moderate spinal canal stenosis at L2-3. Moderate to severe spinal canal stenosis at L3-4. Severe spinal canal stenosis at L4-5. Multiple levels of neural foraminal stenoses as described above.
[2018-09-12 00:58] VITALS: BP 158/85; PULSE 50; RESP 14; TEMP 98.7
== END 2018-09-12 00:58 | disposition home or self-care (01) ==
LOC: EC 22:01
DX: S39.012A Strain of muscle, fascia and tendon of lower back, initial encounter (principal); E11.9 Type 2 diabetes mellitus without complications; E78.5 Hyperlipidemia, unspecified; I10 Essential (primary) hypertension; M19.90 Unspecified osteoarthritis, unspecified site; I48.92 Unspecified atrial flutter; Z85.72 Personal history of non-Hodgkin lymphomas; Z92.21 Personal history of antineoplastic chemotherapy; Z96.653 Presence of artificial knee joint, bilateral; Z98.890 Other specified postprocedural states; Z87.891 Personal history of nicotine dependence; Z87.19 Personal history of other diseases of the digestive system; Z79.01 Long term (current) use of anticoagulants; Z79.84 Long term (current) use of oral hypoglycemic drugs; Z79.899 Other long term (current) drug therapy; Z91.011 Allergy to milk products; X50.1XXA Overexertion from prolonged static or awkward postures, initial encounter; Y93.89 Activity, other specified
CPT/HCPCS: 72131; 99283; 96372; J2270

== ENCOUNTER → 2018-11-22 | Outpatient (CLI) | payer MEDICARE ==
[2018-11-22 09:38] LABS: African American GFR (CKD) >90 (>60 ml/min/1.73 sqM); Blood Urea Nitrogen 20 mg/dL (9-20)
--- NOTE | 2018-11-22 13:27 | CT ---
EXAMINATION TYPE: CT ChestAbdPelvis w con DATE OF EXAM: 11/22/2018 COMPARISON: 01/23/2019 and 09/19/2017 HISTORY: 73-year-old male Lymphoma, observe for METS TECHNIQUE: Contiguous axial scanning of the performed with IV Contrast, patient injected with 100 mL of Isovue 300. Delayed images through the kidneys were obtained. Coronal/sagittal reconstructions per formed. CT DLP: 3547.8 mGycm Automated exposure control for dose reduction was used. FINDINGS: Chest: Right anterior chest wall injection port with catheter tip at the lower SVC. Heart upper limits of normal in size without pericardial effusion. Scattered mild coronary vessel nate cifications are present. Mild aortic valvular calcifications. Aorta normal caliber with conventional branching anatomy and cassidy y mild atherosclerotic arch calcifications. Large caliber to the main right and left pulmonary arteries at 2.8 and 2.6 cm, respectively, suggesti ng underlying pulmonary arterial hypertension. No thoracic lymphadenopathy by CT size criteria. Mild bilateral gynecomastia is noted. Some reticular changes in the lower lungs could represent underlying interstitial scarring/fibrosis. No consolidation or pleural effusion. ABDOMEN: No focal liver lesion. Portal venous system appears patent. No biliary ductal dilatation. Gallbladder, kidneys, spleen, and pancreas appear within normal limits. Stable mild diffuse thickening of the bilateral adrenal glands suggesting possible adrenal hyperplasi a. No dilated small bowel, free fluid, or free air. Stable 9 mm portacaval lymph node. No mesenteric or retroperitoneal lymphadenopathy. Normal appendix. Scattered mild stool. Mild proximal sigmoid diverticulosis without pericolonic infla mmatory change. Mild atherosclerotic calcifications abdominal aorta. PELVIS: Prostate gland enlargement 5.2 cm wide. Bladder incompletely distended. No abnormal fluid collection in the pelvis or pelvic lymphadenopathy. BONES: Degenerative changes at the hips and SI joints. Bridging anterior endplate spondylosis compatible wit h DISH. Degenerative changes mid to lower lumbar spine with grade 1 anterolisthesis L4-L5. No osseous destructive process seen. IMPRESSION: 1. STABLE EXAM WITHOUT SUSPICIOUS LYMPHADENOPATHY OR MASS TO SUGGEST RECURRENT DISEASE. 2. POSSIBLE UNDERLYING PULMONARY ARTERIAL HYPERTENSION, STABLE MILD THICKENING OF THE ADRENAL GLANDS, MILD PROXIMAL SIGMOID DIVERTICULOSIS, AND PROSTATOMEGALY (5.2 CM WIDE).
== END | disposition home or self-care (01) ==
LOC: RADCTMAIN 08:46
PROVIDERS: ATTEND Internal Medicine Hematology & Oncology
DX: C83.33 Diffuse large B-cell lymphoma, intra-abdominal lymph nodes (principal)
CPT/HCPCS: 82565; 84520; 71260; 74177; J1642; Q9967 ×2

== ENCOUNTER → 2019-12-12 | Outpatient (CLI) | payer MEDICARE ==
[2019-12-12 10:16] LABS: HCT 47.6 % (39.0-53.0); HGB 16.1 gm/dL (13.0-17.5); MCH 31.6 pg (25.0-35.0); MCHC 33.8 g/dL (31.0-37.0); MCV 93.5 fL (80.0-100.0); Platelet Count 142 k/uL (150-450); RBC 5.09 m/uL (4.30-5.90); RDW 13.2 % (11.5-15.5); WBC 8.7 k/uL (3.8-10.6)
[2019-12-12 10:31] LABS: African American GFR (CKD) >90 (>60 ml/min/1.73 sqM); Anion Gap 8 mmol/L; Blood Urea Nitrogen 20 mg/dL (9-20); Carbon Dioxide 28 mmol/L (22-30); Chloride 104 mmol/L (98-107); Magnesium 2.1 mg/dL (1.6-2.3); Non-African American GFR(CKD) 88 (>60 ml/min/1.73 sqM); Potassium 4.5 mmol/L (3.5-5.1); Sodium 140 mmol/L (137-145)
== END | disposition home or self-care (01) ==
LOC: LABPAT 09:21
PROVIDERS: ATTEND Internal Medicine Clinical Cardiac Electrophysiology
DX: Z01.818 Encounter for other preprocedural examination (principal); I49.5 Sick sinus syndrome; I48.3 Typical atrial flutter
CPT/HCPCS: 36415; 80051; 82565; 83735; 84520; 85027

== ENCOUNTER 2019-12-23 08:00 | Day surgery (SDC) | payer MEDICARE ==
[2019-12-18 14:44] VITALS: BMI 40.1
[~2019-12-23 08:00] MED LIST: LACTATED RINGERS 1,000 ML IV SCH; SODIUM CHLORIDE 0.9% 1,000 ML IV SCH
[2019-12-23 08:27] LABS: Glucose,Whole Blood 153 mg/dL (75-99)
[2019-12-23] MEDS ORDERED: SODIUM CHLORIDE 0.9% 1,000 ML IV ONE (08:39)
[2019-12-23] MEDS ORDERED: fentaNYL (PF) 50 MCG/ML 2 ML AMP ONE (11:17)
[2019-12-23] MEDS ORDERED: SUCCINYLCHOLINE CHLORIDE 100 MG/5 ML SYR IV ONE (11:17)
[2019-12-23] MEDS ORDERED: PROPOFOL 10 MG/ML 20 ML VIAL IV ONE (11:17)
[2019-12-23] MEDS ORDERED: ROCURONIUM 10 MG/ML (10 ML VIAL) IV ONE (11:17)
[2019-12-23] MEDS ORDERED: MIDAZOLAM 2 MG/2 ML VIAL ONE (11:17)
[2019-12-23] MEDS ORDERED: ePHEDrine SULFATE/0.9% NACL/PF 50 MG/5 ML SYRINGE IV ONE (11:17)
[2019-12-23] MEDS ORDERED: GLYCOPYRROLATE 0.2 MG/ML 2 ML VIAL ONE (11:17)
[2019-12-23] MEDS ORDERED: PHENYLEPHRINE-0.9% NACL SYG 1 MG/10 ML SYRINGE ONE (11:17)
[2019-12-23] MEDS ORDERED: NEOSTIGMINE 1 MG/ML 10 ML VIAL ONE (11:17)
[2019-12-23] MEDS ORDERED: LIDOCAINE 1% INJ 10MG/ML (20 ML MDV) ONE ×2 (11:17→11:31)
[2019-12-23] MEDS ORDERED: ISOPROTERENOL 250 MCG/1.25 ML SYR IV ONE (11:17)
[2019-12-23] MEDS ORDERED: LIDOCAINE 1% INJ 10MG/ML (20 ML MDV) SQ ONE (12:14)
[2019-12-23] MEDS ORDERED: HEPARIN SODIUM (1,000 UNIT/ML) 1,000 UNIT in SODIUM CHLORIDE 0.9% 1,000 ML IRRIGATION ONE (12:33)
[2019-12-23] MEDS ORDERED: ACETAMINOPHEN IV (For NPO) 1,000 MG in EMPTY BAG 1 BAG IVPB ONE (13:20)
[2019-12-23] MEDS ORDERED: HYDROcodone/APAP 5-325MG 1 EACH TAB PO PRN (13:20)
[2019-12-23] MEDS ORDERED: ACETAMINOPHEN TAB 325 MG TAB PO PRN (13:20)
--- NOTE | 2019-12-23 13:20 | P.HPCAR ---
History of Present Illness This is Dr. Lisa dictating an H/P on this patient The patient was interviewed and examined IMPRESSION / ASSESSMENT: History of typical atrial flutter Sick Sinus Syndrome Right bundle branch block alternating left bundle branch block Symptomatic bradycardia Type 2 diabetes Hypertension Obesity PLAN: Proceed with EP study/atrial flutter ablation firs Subsequently at a later date for dual-chamber biventricular pacemaker will be implanted for management of symptomatic sick sinus syndrome with conduction system disease in the bundles HPI Patient complains of tiredness fatigue. No loss of consciousness History of typical atrial flutter, documented History of sick sinus syndrome with pauses up to 3.6 seconds during the day History of idioventricular rhythm during the day Appropriately anticoagulated with ELIQUIS at this time Sleep apnea Normal TSH ROS: No fever chills or rigors, no cough, phlegm or expectoration, no nausea, vomiting or diarrhea, no hematuria, dysuria, no musculoskeletal complaints, no strokes or seizures, no skin lesions. EXAMINATION: On examination afebrile 90F, pulse rate in the 70s, blood pressure 170/80 mmHg No lower extremity edema Soft abdomen Central obesity Normal S1 normal S2 rhythm regular Breath sounds are clear no rhonchi no crackles REVIEW OF LABS, ECG & MEDICAL DATA Normal TSH, glucose 153 Physical Exam Vitals: Vital Signs Temp Pulse Resp BP Pulse Ox 12/23/19 08:35 98.0 F 75 16 191/81 95 Intake and Output 12/22/19 12/23/19 12/23/19 22:59 06:59 14:59 Intake Total 20 Balance 20 Intake: IV 20 Other: Weight 131.1 kg Past Medical History Past Medical History: Atrial Flutter, Cancer, Diabetes Mellitus, Hyperlipidemia, Hypertension, Osteoarthritis (OA), Skin Disorder, Sleep Apnea/CPAP/BIPAP Additional Past Medical History / Comment(s): sinus problems, ventral hernia, eczema, arthritis; FOUND TO HAVE ABD MASS, NEAR AORTA AND VENA CAVA -. dx 07/15/2013 non hodgkins lymphoma; UNDERGOING CHEMO TX, PROB W/ ACCESSING PORT-A-CATH, SITE RED History of Any Multi-Drug Resistant Organisms: None Reported Past Surgical History: Joint Replacement Additional Past Surgical History / Comment(s): bilateral knee replacement, pilonidal cyst X2, right bunionectomy; PORT-A-CATH 07/17. Past Anesthesia/Blood Transfusion Reactions: No Reported Reaction Smoking Status: Former smoker - Past Family History Sister(s) Family Medical History: Cancer Physical Examination Vital Signs Temp Pulse Resp BP Pulse Ox 12/23/19 08:35 98.0 F 75 16 191/81 95 Intake and Output 12/22/19 12/23/19 12/23/19 22:59 06:59 14:59 Intake Total 20 Balance 20 Intake: IV 20 Other: Weight 131.1 kg Results Current Medications Generic Name Dose Route Start Last Admin Trade Name Freq PRN Reason Stop Dose Admin Lactated Ringer's 1,000 mls @ 20 mls/hr 12/23/19 06:11 Lactated Ringers IV .Q24H URSULA Sodium Chloride 1,000 mls @ 50 mls/hr 12/23/19 06:11 Saline 0.9% IV .Q20H URSULA Intake and Output 12/22/19 12/23/19 12/23/19 22:59 06:59 14:59 Intake Total 20 Balance 20 Intake: IV 20 Other: Weight 131.1 kg Patient Weight 12/24/19 06:59 Weight 131.1 kg
--- NOTE | 2019-12-23 13:39 | P.PRLE ---
RE: Bam Mcwilliams Dear Marysol Mr. Bam patel underwent successful atrial flutter ablation with demonstration of complete bidirectional block He has underlying sick sinus syndrome with pauses up to 3.6 seconds as well as alternating bundle branch block and idioventricular rhythm He is also being scheduled for a biventricular pacemaker in the future Thank you for entrusting me with the care of the patient Warm regards Sincerely Petros Lisa
--- NOTE | 2019-12-23 14:15 | CE ---
CARDIAC ELECTROPHYSIOLOGY REPORT Bam Mcwilliams is a 74-year-old male patient who has a history of sick sinus syndrome, symptomatic with long pauses up to 3.6 seconds. He has alternating bundle branch block as well as AIVR. He feels tired and fatigued. He has a history of a documented atypical atrial flutter. He is brought in for an atrial flutter ablation today. Subsequently, a biventricular pacemaker will be implanted. The patient brought to the EP lab in a fasting state. Written informed consent was obtained prior to the procedure. The procedure was performed under general anesthesia. Venous sheaths were placed in the right and left femoral veins via these and diagnostic mapping ablation catheter placed. Sinus cycle length 1175 milliseconds. KS interval 191 milliseconds, QRS 131 milliseconds, QT 421 milliseconds. AH interval 86 milliseconds, HV interval 67 milliseconds. AV node Wenckebach block 460 milliseconds. VA Wenckebach block 580 milliseconds. Burst stimulation was performed on Isuprel, AV node Wenckebach block improved to 350 milliseconds and burst stimulation was performed from 400 milliseconds down to 230 milliseconds. No atrial fibrillation was induced. Intracardiac echo cardiography was performed. A 3D electro anatomic mapping was performed. No pericardial effusion was noted. The right atrial isthmus was identified. Three-D mapping was performed. The tricuspid anulus was tagged and HIS bundle was tagged and IVC eustachian ridge was tagged. The patient was in sinus rhythm/junctional escape rhythm and the RF line of block was made from the tricuspid anulus to the eustachian ridge. The complete anatomic line of block was made and then this was interrogated with pacing maneuvers to demonstrate complete bidirectional block with differential pacing as well as non capture at high output along the RF line. Split potentials were noted all along the line. Pacing maneuvers were performed from the lateral right atrium and from the coronary sinus os. RESULT: Successful atrial flutter ablation with demonstration of bidirectional block with differential pacing. Prolonged HV interval of 67 milliseconds. Abnormal AV node function. Sinus bradycardia with junctional escape rhythm. PLAN: Elective implantation of a biventricular pacemaker to avoid 100% RV pacing. MMODL / IJN: [id number] /
[2019-12-23] MEDS ORDERED: diphenhydrAMINE 50 MG/ML 1 ML VIAL IVP ONE (14:16)
[2019-12-23 14:25] LABS: Glucose,Whole Blood 143 mg/dL (75-99)
[2019-12-23] MEDS: APIXABAN 5 MG TAB PO SCH (20:54)
[2019-12-23] MEDS: ANTIARTHRITIC COMBINATION NO 2 900 MG PO SCH (20:55)
[2019-12-23] MEDS: NON FORMULARY DRUG (Omega-3 Fatty Acids/Fish Oil [Fish Oil 1,000 Mg Softgel] 1 EACH Capsul PO SCH (20:55)
[2019-12-23] MEDS ORDERED: ATORVASTATIN 10 MG TAB PO SCH (21:00)
[2019-12-23] MEDS ORDERED: amLODIPine 10 MG TAB PO SCH (21:00)
[2019-12-23] MEDS ORDERED: GLIMEPIRIDE 1 MG TAB PO SCH (21:00)
[2019-12-24 04:17] VITALS: TEMP 97.8
[2019-12-24 08:17] VITALS: BP 167/75; PULSE 72; RESP 16
--- NOTE | 2019-12-24 08:44 | P.DS ---
Providers Attending physician: Petros Lisa [facility] Course: Patient is doing well. He is sitting in the chair looks very comfortable. Minimal tenderness no swelling in both groins No chest discomfort dizziness lightheadedness Rhythm is normal sinus mechanism no bradycardia overnight ECG is normal with occasional PVCs Blood pressure 167/75 mmHg and 130/65 mmHg pulse rate in the 60s afebrile Breath sounds are clear no rhonchi no crackles Normal heart sounds normal S1 normal S2 Abdomen soft nontender Impression Typical atrial flutter, symptomatic Sick sinus syndrome, symptomatic Alternating bundle branch block Sinus pauses up to 3.6 seconds documented in the past Hypertension Type 2 diabetes Suggest Increase the dose of losartan to 50 mg daily Continue anticoagulation Continue all other medications Discharge home today Plan - Discharge Summary Discharge Rx Participant: No New Discharge Prescriptions: New Losartan [Cozaar] 50 mg PO DAILY #90 tab Continue Antiarthritic Combination No.2 [Glucosamine-Chondroitin] 200 mg PO BID Apixaban [Eliquis] 5 mg PO BID Simvastatin [Zocor] 20 mg PO HS [place]-3 Fatty Acids/Fish Oil [Fish Oil 1,000 mg Softgel] 1 cap PO BID Glimepiride [Amaryl] 1 mg PO HS Cholecalciferol [Vitamin D3 (25 Mcg = 1000 Iu)] 1,000 unit PO DAILY amLODIPine BESYLATE 10 mg PO HS Multivitamins, Thera [Multivitamin (formulary)] 1 tab PO DAILY Discontinued Losartan Potassium [Cozaar] 25 mg PO DAILY Discharge Medication List Antiarthritic Combination No.2 [Glucosamine-Chondroitin] 200 mg PO BID 09/11/13 [History] Apixaban [Eliquis] 5 mg PO BID 10/10/16 [History] Simvastatin [Zocor] 20 mg PO HS 12/05/16 [History] Glimepiride [Amaryl] 1 mg PO HS 09/11/18 [History] [place]-3 Fatty Acids/Fish Oil [Fish Oil 1,000 mg Softgel] 1 cap PO BID 09/11/18 [History] Cholecalciferol [Vitamin D3 (25 Mcg = 1000 Iu)] 1,000 unit PO DAILY 12/18/19 [History] Multivitamins, Thera [Multivitamin (formulary)] 1 tab PO DAILY 12/18/19 [History] amLODIPine BESYLATE 10 mg PO HS 12/18/19 [History] Losartan [Cozaar] 50 mg PO DAILY #90 tab 12/24/19 [Rx] Follow up Appointment(s)/Referral(s): Petros Lisa MD [STAFF PHYSICIAN] - 1 Week (Groin check in 1 week) Activity/Diet/Wound Care/Special Instructions: Post EP study - Ablation instructions 1. Keep access sites dry for 2 days. 2. No heavy lifting or straining for 2 days. 3. Avoid bending the hips repeatedly for 2 days. 4. You may go up and down stairs slowly Call if the following is noted 1. Bleeding, increasing swelling or pain at the access sites. 2. Increasing chest discomfort, especially upon taking a deep breath. 3. Increasing shortness of breath, at rest or with exertion. 4. Undue cough / phlegm 5. Difficulty or pain while swallowing. 6. Pain or change in color in the extremities. 7. Fever, chills, rigors. 8. Increasing headache or neurologic symptoms. 9. Dizziness, fainting, palpitations ELIQUIS to continue unchanged Increase losartan to 50 mg by mouth daily Continue all other medications Discharge Disposition: HOME SELF-CARE
[2019-12-24] MEDS ORDERED: MULTIVITAMINS, THERA 1 EACH TAB PO SCH (09:00)
[2019-12-24] MEDS ORDERED: CHOLECALCIFEROL 1,000 UNIT TAB PO SCH (09:00)
[2019-12-24] MEDS ORDERED: LOSARTAN 25 MG TAB PO SCH (09:00)
[2019-12-24] MEDS ORDERED: LOSARTAN 50 MG TAB PO SCH (09:00)
[2019-12-24] MEDS: APIXABAN 5 MG TAB PO SCH (09:55)
[2019-12-24] MEDS: ANTIARTHRITIC COMBINATION NO 2 900 MG PO SCH (09:56)
[2019-12-24] MEDS: NON FORMULARY DRUG (Omega-3 Fatty Acids/Fish Oil [Fish Oil 1,000 Mg Softgel] 1 EACH Capsul PO SCH (09:56)
== END 2019-12-24 10:55 | disposition home or self-care (01) ==
LOC: CATHEP 08:00 → 3NCARDOBS 14:21 → CATHEP 12-24 10:55
PROVIDERS: ATTEND Internal Medicine Clinical Cardiac Electrophysiology
DX: R00.1 Bradycardia, unspecified (principal); I48.4 Atypical atrial flutter; I49.5 Sick sinus syndrome; I45.2 Bifascicular block; E11.9 Type 2 diabetes mellitus without complications; I10 Essential (primary) hypertension; E66.9 Obesity, unspecified; Z68.41 Body mass index [BMI] 40.0-44.9, adult; G47.30 Sleep apnea, unspecified; Z99.89 Dependence on other enabling machines and devices; K43.9 Ventral hernia without obstruction or gangrene; L30.9 Dermatitis, unspecified; M19.90 Unspecified osteoarthritis, unspecified site; C85.90 Non-Hodgkin lymphoma, unspecified, unspecified site; Z95.828 Presence of other vascular implants and grafts; Z96.653 Presence of artificial knee joint, bilateral; Z98.890 Other specified postprocedural states; Z87.891 Personal history of nicotine dependence; Z79.84 Long term (current) use of oral hypoglycemic drugs; Z79.01 Long term (current) use of anticoagulants; Z79.899 Other long term (current) drug therapy
CPT/HCPCS: 93623; 93662; 93613; 93653; C1894; C1769 ×2; C1730; C1759; C1893; C1732; J2250; J1200; J2710; J2001; J3010; J1644; J0131; J2370; J0330; J2704

== ENCOUNTER → 2020-01-14 | Outpatient (CLI) | payer MEDICARE ==
[2020-01-14 10:35] LABS: HCT 46.5 % (39.0-53.0); HGB 15.6 gm/dL (13.0-17.5); MCH 30.8 pg (25.0-35.0); MCHC 33.5 g/dL (31.0-37.0); MCV 91.8 fL (80.0-100.0); Mean Platelet Volume 7.1; Platelet Count 142 k/uL (150-450); RBC 5.07 m/uL (4.30-5.90); RDW 13.9 % (11.5-15.5); WBC 7.1 k/uL (3.8-10.6)
[2020-01-14 10:49] LABS: African American GFR (CKD) >90 (>60 ml/min/1.73 sqM); Anion Gap 6 mmol/L; Blood Urea Nitrogen 21 mg/dL (9-20); Carbon Dioxide 28 mmol/L (22-30); Chloride 104 mmol/L (98-107); Non-African American GFR(CKD) 84 (>60 ml/min/1.73 sqM); Potassium 4.3 mmol/L (3.5-5.1); Sodium 138 mmol/L (137-145)
== END | disposition home or self-care (01) ==
LOC: LABPAT 09:08
PROVIDERS: ATTEND Internal Medicine Clinical Cardiac Electrophysiology
DX: Z01.818 Encounter for other preprocedural examination (principal); I49.5 Sick sinus syndrome; I48.3 Typical atrial flutter; E11.9 Type 2 diabetes mellitus without complications
CPT/HCPCS: 36415; 80051; 82565; 84443; 84520; 85027

== ENCOUNTER 2020-01-27 10:31 | Day surgery (SDC) | payer MEDICARE ==
[2020-01-22 17:05] VITALS: BMI 41.5
[~2020-01-27 10:31] MED LIST changes: +ceFAZolin 1,000 MG in SODIUM CHLORIDE 0.9% IRRIGATIO 250 ML IRRIGATION ONE
[2020-01-27] MEDS ORDERED: SODIUM CHLORIDE 0.9% 1,000 ML IV ONE (10:43)
[2020-01-27 11:02] LABS: Glucose,Whole Blood 151 mg/dL (75-99)
[2020-01-27] MEDS ORDERED: LIDOCAINE 1% INJ 10MG/ML (20 ML MDV) ONE (12:38)
[2020-01-27] MEDS ORDERED: MIDAZOLAM 2 MG/2 ML VIAL ONE (12:41)
[2020-01-27] MEDS ORDERED: HYDROmorphone (PF) 1 MG/ML ONE (12:41)
[2020-01-27] MEDS ORDERED: KETAMINE 10 MG/ML 20 ML VIAL ONE (12:41)
[2020-01-27] MEDS ORDERED: PROPOFOL 10 MG/ML 20 ML VIAL IV ONE (12:41)
[2020-01-27] MEDS ORDERED: fentaNYL (PF) 50 MCG/ML 2 ML AMP ONE (12:41)
[2020-01-27] MEDS ORDERED: IOPAMIDOL-250 50ML BTL IV ONE (13:03)
[2020-01-27] MEDS ORDERED: ACETAMINOPHEN TAB 325 MG TAB PO PRN (15:38)
--- NOTE | 2020-01-27 15:46 | P.EPCON ---
Electrophysiology Consult - EP Consult Electrophysiology Consult: postop plan Patient underwent dual-chamber biventricular pacemaker with His bundle pacing for sympathetic Sick Sinus Syndrome with prolonged KS interval abnormal AV node function right bundle-branch block wide QRS A Medtronic biventricular pacemaker with His bundle pacing was implanted Nonselective capture with loss of capture 0.75 V at 1 ms AV node Wenckebach block around 1 30 bpm Labs are reviewed hemoglobin 15.6 Sodium 138, potassium 4.3, BUN 21 and creatinine 0.91 TSH 1.3 Plan DDDR pacing with long AV delay with His bundle pacing and backup RV pacing, 50- 1:30 bpm After 3 months for chronic settings His bundle lead will be programmed at at 2 V at 1 ms For hypertension management add Dyazide to current regimen Avoid beta blockers to minimize RV pacing Same-day discharge after one dose of antibiotics and chest x-ray
--- NOTE | 2020-01-27 15:48 | P.PRLE ---
RE: Bam Mcwilliams Dear Marysol Kuhn underwent biventricular pacing with His bundle pacing, to avoid RV pacing His blood pressure is still elevated and I am adding Dyazide to his current regimen today His potassium is 4.3 at baseline and BUN and creatinine are normal TSH is normal He will continue his other cardiac medications unchanged including ELIQUIS Thank you for entrusting me with the care of the patient Warm regards Sincerely Petros Lisa
[2020-01-27] MEDS ORDERED: ACETAMINOPHEN IV (For NPO) 1,000 MG in EMPTY BAG 1 BAG IVPB ONE (17:00)
--- NOTE | 2020-01-27 17:05 | XR ---
EXAMINATION TYPE: XR chest 1V portable DATE OF EXAM: 01/27/2020 COMPARISON: NONE HISTORY: Pacemaker placement. TECHNIQUE: Single view FINDINGS: There is left axillary pacemaker. There are chest leads. There is no heart failure nor conf luent pneumonic infiltrate. Heart appears enlarged. There is no evidence of pleural effusion. IMPRESSION: Cardiomegaly. No active cardiopulmonary disease.
--- NOTE | 2020-01-27 17:07 | CE ---
CARDIAC ELECTROPHYSIOLOGY REPORT Bam Mcwilliams is a 74-year-old male patient who has symptomatic sick sinus syndrome with sinus bradycardia and pauses, abnormal as metoprolol p.r.n. interval at baseline with abnormal AV node function, right bundle branch block pattern with a wide QRS. He was brought in for permanent pacemaker. A biventricular pacemaker was recommended to minimize RV pacing. Patient was brought to the EP lab in a fasting state. Written informed consent was obtained prior to the procedure. The left shoulder area was prepped and draped as per protocol. 1% lidocaine was used for local anesthesia. A 4 cm incision was made parallel to the deltopectoral groove, about 1.5 cm medial to it. The incision was carried down to the level of the pectoralis muscle. A subfascial pocket was made. Hemostasis was assured. The left axillary vein was accessed at 3 separate points under fluoroscopy and via appropriately-sized introducer sheaths, 3 leads were positioned. The atrial lead was a Medtronic screw-in lead position that was positioned in the right atrial appendage and screwed in. P waves were 1.5 mV, pacing impedance 740 ohms, pacing threshold 1 V at 0.5 milliseconds. 10 V test negative. The RV lead was positioned in the mid RV septum. This was a Medtronic model #5076, 58 cm in length and serial number [id number]. R-waves 8.2 mV., pacing impedance 855 ohms, pacing threshold 0.5 V at 0.5 milliseconds, 10 V test negative. The HIS bundle lead was positioned in the HIS bundle area. Nonselective capture was noted all through. Sensing 4 mV, pacing impedance 590 ohms, pacing threshold 4 loss of nonselective capture was 0.75 V at 1 millisecond. This was a Medtronic model #3830, 69 cm in length and serial number [id number] Medtronic lead. All 3 leads were secured to the underlying pectoralis muscle using 2 nonabsorbable sutures. Pocket was irrigated with antibiotic solution. Leads were connected to the generator (Medtronic CRTP MRI model number W1TR02, serial number [id number]. The leads and generator were then placed in subfascial pocket and the wound was closed in 3 layers and dressed per protocol. The device was then programmed to DDDR mode at 50-130 ppm. Please note, AV node Wenckebach block was tested during the procedure and was at 130 beats per minute. A long AV delay of 300-350 millisecond was programmed and preferential HIS bundle pacing was programmed. The patient tolerated the procedure well without any acute complications. LEFT UPPER EXTREMITY VENOGRAM: 15 mL of IV dye was injected in the left arm and the left subclavian and axillary veins were well opacified and found to be patent. PLAN: To proceed with biventricular pacemaker implantation. MMODYvette / IJN: [id number] /
[2020-01-27] MEDS ORDERED: ONDANSETRON 4 MG/2 ML VIAL IVP PRN (18:53)
[2020-01-27] MEDS ORDERED: ONDANSETRON 4 MG/2 ML VIAL ONE (19:00)
[2020-01-27] MEDS ORDERED: GLIMEPIRIDE 1 MG TAB PO SCH (21:00)
[2020-01-27] MEDS ORDERED: amLODIPine 10 MG TAB PO SCH (21:00)
[2020-01-27] MEDS ORDERED: ATORVASTATIN 10 MG TAB PO SCH (21:00)
[2020-01-27] MEDS: APIXABAN 5 MG TAB PO SCH (21:01)
[2020-01-27 21:29] LABS: Glucose,Whole Blood 207 mg/dL (75-99)
[2020-01-28 07:58] VITALS: BP 136/68; PULSE 57; RESP 14; TEMP 98
[2020-01-28] MEDS: APIXABAN 5 MG TAB PO SCH (08:03)
--- NOTE | 2020-01-28 08:06 | P.DS ---
Providers Attending physician: Petros Lisa Primary care physician: Marysol [facility] Course: Patient is doing well. His nausea has improved. 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 Chest x-ray is within normal limits. Pace with his interrogated yesterday he can go home and follow- up the device clinic within 5-7 days for follow-up with me in about1-2 months Plan - Discharge Summary Discharge Rx Participant: No New Discharge Prescriptions: New Triamterene-Hctz 37.5-25Mg [Maxzide 37.5-25] 1 tab PO DAILY #90 tablet No Action Antiarthritic Combination No.2 [Glucosamine-Chondroitin] 200 mg PO BID Apixaban [Eliquis] 5 mg PO BID Simvastatin [Zocor] 20 mg PO HS [place]-3 Fatty Acids/Fish Oil [Fish Oil 1,000 mg Softgel] 1 cap PO BID Glimepiride [Amaryl] 1 mg PO HS Cholecalciferol [Vitamin D3 (25 Mcg = 1000 Iu)] 1,000 unit PO DAILY amLODIPine BESYLATE 10 mg PO HS Multivitamins, Thera [Multivitamin (formulary)] 1 tab PO DAILY Losartan [Cozaar] 50 mg PO DAILY #90 tab Discharge Medication List Antiarthritic Combination No.2 [Glucosamine-Chondroitin] 200 mg PO BID 09/11/13 [History] Apixaban [Eliquis] 5 mg PO BID 10/10/16 [History] Simvastatin [Zocor] 20 mg PO HS 12/05/16 [History] Glimepiride [Amaryl] 1 mg PO HS 09/11/18 [History] [place]-3 Fatty Acids/Fish Oil [Fish Oil 1,000 mg Softgel] 1 cap PO BID 09/11/18 [History] Cholecalciferol [Vitamin D3 (25 Mcg = 1000 Iu)] 1,000 unit PO DAILY 12/18/19 [History] Multivitamins, Thera [Multivitamin (formulary)] 1 tab PO DAILY 12/18/19 [History] amLODIPine BESYLATE 10 mg PO HS 12/18/19 [History] Losartan [Cozaar] 50 mg PO DAILY #90 tab 12/24/19 [Rx] Triamterene-Hctz 37.5-25Mg [Maxzide 37.5-25] 1 tab PO DAILY #90 tablet 01/27/20 [Rx] Follow up Appointment(s)/Referral(s): Petros Lisa MD [STAFF PHYSICIAN] - 1 Week (Device Clinic located in [facility] office- 02/02 at 3:00pm Dr. Lisa in 2-3 months on 04/01 at 4:30pm) Patient Instructions/Handouts: Procedural Sedation (ED), Pacemaker (DC) Activity/Diet/Wound Care/Special Instructions: PATIENT EDUCATION MATERIAL Instructions following a heart rhythm device implant. 1. Keep dressing DRY for 5 DAYS. You may cover the area with Saran or Cling Wrap, prior to a shower. 2. The dressing will be removed in the Device Clinic at [facility]. Absorbable sutures were used to close the wound. 3. Avoid raising the left arm above the shoulder level. 4 week restriction 4. Avoid arm movements, like backscratching, rubbing the head, or pulling on a cord. 4 weeks restriction 5. Gentle range of motion movements of the shoulder, closest to the incision should be performed to avoid a frozen shoulder. (Pendulum exercises of the shoulder) 6. The opposite arm may be used freely. 7. Avoid driving for 7 days. 8. Avoid activities such as golfing, swimming, weed whacking, lifting more than 10 pounds weight, bowling, gymnastics and weight training/lifting. (6 weeks restriction) 9. Activities such as wood chopping with an axe, pull-ups in the gymnasium, power lifting, arc-welding, being close to home induction cooktops will always be a problem. 10. Arm sling is only a reminder not to raise the arm above the head. You do not need to keep the arm completely immobilized. Your free to move the arm and use it and for normal activities. In case of any problems, please call [facility] [place], @ [phone], Attention: Device Clinic Device clinic follow-up in 5 days Follow-up with primary funeral home general manager in 4 months Medication Maxide one tablet by mouth daily Continue all other medications unchanged
[2020-01-28] MEDS ORDERED: LOSARTAN 50 MG TAB PO SCH (09:00)
== END 2020-01-28 11:18 | disposition home or self-care (01) ==
LOC: CATHEP 10:31 → 1SOBS 18:57 → CATHEP 01-28 11:18
PROVIDERS: ATTEND Internal Medicine Clinical Cardiac Electrophysiology
DX: I48.4 Atypical atrial flutter (principal); I49.5 Sick sinus syndrome; I45.2 Bifascicular block; I49.3 Ventricular premature depolarization; I10 Essential (primary) hypertension; E78.5 Hyperlipidemia, unspecified; E11.9 Type 2 diabetes mellitus without complications; Z82.49 Family history of ischemic heart disease and other diseases of the circulatory system; G47.33 Obstructive sleep apnea (adult) (pediatric); Z87.891 Personal history of nicotine dependence; Z87.442 Personal history of urinary calculi; Z79.01 Long term (current) use of anticoagulants; Z79.899 Other long term (current) drug therapy; Z91.040 Latex allergy status; Z91.011 Allergy to milk products
CPT/HCPCS: 33225; 33208; 71045; C1769 ×3; C1892; C1898; C2621; J2250; J0690 ×3; J2405 ×2; J3010; J1170; J0131; J2704; Q9966

== ENCOUNTER → 2021-03-26 | Outpatient (CLI) | payer MEDICARE ==
[2021-03-26 14:33] LABS: HCT 47.1 % (39.6-50.0); HGB 15.4 g/dL (13.0-17.0); MCH 29.3 pg (27.0-32.0); MCHC 32.7 g/dL (32.0-37.0); MCV 89.7 fL (80.0-97.0); Mean Platelet Volume 10.1 fL (9.5-12.2); Platelet Count 141 X 10*3/uL (140-440); RBC 5.25 X 10*6/uL (4.40-5.60); WBC 6.36 X 10*3/uL (4.50-10.00)
[2021-03-26 15:12] LABS: African American GFR (CKD) 99.1 (60.0-200.0); Blood Urea Nitrogen 15.2 mg/dL (9.0-27.0); Carbon Dioxide 21.1 mmol/L (20.0-27.5); Non-African American GFR(CKD) 85.5 (60.0-200.0); Potassium 3.9 mmol/L (3.5-5.5)
== END | disposition home or self-care (01) ==
LOC: LABWHC1 07:46
PROVIDERS: ATTEND Internal Medicine
DX: Z01.812 Encounter for preprocedural laboratory examination (principal); Z20.822 Contact with and (suspected) exposure to COVID-19; R94.39 Abnormal result of other cardiovascular function study
CPT/HCPCS: 80051; 82565; 84520; 85027; 36415; U0003; C9803; U0005

== ENCOUNTER 2021-03-30 06:33 | Day surgery (SDC) | payer MEDICARE ==
[2021-03-24 12:31] VITALS: BMI 40.8
[~2021-03-30 06:33] MED LIST changes: +ALPRAZolam 0.25 MG TAB PO PRN; +ALPRAZolam 0.5 MG TAB PO PRN; +ASPIRIN 325 MG TAB PO STA; +ATORVASTATIN 80 MG TAB PO STA; -LACTATED RINGERS 1,000 ML IV SCH; +NITROGLYCERIN SL TABS 0.4 MG TAB SUBLINGUAL PRN; -SODIUM CHLORIDE 0.9% 1,000 ML IV SCH; +SODIUM CHLORIDE 0.9% 1,000 ML in EMPTY BAG 1 BAG IV SCH; -ceFAZolin 1,000 MG in SODIUM CHLORIDE 0.9% IRRIGATIO 250 ML IRRIGATION ONE
[2021-03-30] MEDS ORDERED: SODIUM CHLORIDE 0.9% 1,000 ML IV ONE (06:50)
[2021-03-30 07:10] VITALS: TEMP 98.3
[2021-03-30 07:18] LABS: Glucose,Whole Blood 251 mg/dL (75-99)
[2021-03-30] MEDS ORDERED: LIDOCAINE 1% INJ 10MG/ML (20 ML MDV) ONE (07:19)
[2021-03-30] MEDS ORDERED: VERAPAMIL 2.5 MG/ML 2 ML AMP ONE ×2 (07:19→08:05)
[2021-03-30] MEDS ORDERED: INSULIN ASPART (NovoLOG) 100 UNIT/ML VIAL SQ SCH (07:30)
[2021-03-30] MEDS ORDERED: fentaNYL (PF) 50 MCG/ML 2 ML AMP ONE (07:33)
[2021-03-30] MEDS ORDERED: HEPARIN SODIUM 1,000 UN/ML (10ML VL) ONE (07:33)
[2021-03-30] MEDS: MIDAZOLAM 2 MG/2 ML VIAL IV ONE ×2 (07:42→07:55)
[2021-03-30] MEDS ORDERED: fentaNYL (PF) 50 MCG/ML 2 ML AMP IV ONE (07:42)
[2021-03-30] MEDS ORDERED: LIDOCAINE 1% INJ 10MG/ML (20 ML MDV) SQ ONE (07:43)
[2021-03-30] MEDS ORDERED: VERAPAMIL SYRINGE (5 MG/10 ML) INTRAARTER ONE (07:46)
[2021-03-30] MEDS ORDERED: IOPAMIDOL-370 125ML BTL INJ ONE (08:14)
[2021-03-30] MEDS ORDERED: CLOPIDOGREL 75 MG TAB PO ONE ×2 (08:17→08:18)
[2021-03-30] MEDS ORDERED: CLOPIDOGREL 75 MG TAB ONE (08:17)
[2021-03-30] MEDS ORDERED: NITROGLYCERIN 1000MCG/10ML SYRINGE INTRACORON ONE (08:20)
[2021-03-30] MEDS ORDERED: SODIUM CHLORIDE 0.9% 1,000 ML in EMPTY BAG 1 BAG IV SCH (08:35)
[2021-03-30] MEDS ORDERED: IOPAMIDOL-370 100ML BTL INJ ONE (08:52)
[2021-03-30] MEDS ORDERED: NITROGLYCERIN SL TABS 0.4 MG TAB SUBLINGUAL PRN (10:33)
[2021-03-30] MEDS ORDERED: ZOLPIDEM 5 MG TAB PO PRN (10:33)
[2021-03-30] MEDS ORDERED: ATROPINE SULFATE 0.1 MG/ML 10ML SYRINGE IV PRN (10:33)
[2021-03-30] MEDS ORDERED: MAG HYDROX/AL HYDROX/SIMETH 30 ML CUP PO PRN (10:33)
[2021-03-30] MEDS ORDERED: RX INFO: IV CONTRAST WAS GIVEN 1 EACH MISC MISCELLANE PRN (10:33)
[2021-03-30] MEDS ORDERED: ACETAMINOPHEN TAB 325 MG TAB PO PRN (11:42)
--- NOTE | 2021-03-30 11:54 | P.PRCINT ---
Percutaneous Coronary Int. - Percutaneous Coronary Intervention Percutaneous Coronary Intervention: PROCEDURES PERFORMED: Left heart catheterization, bilateral coronary angiography, iFR LAD, IVUS LAD INDICATION: Abnormal stress test, class III dyspnea concerning for angina HISTORY: Patient is a pleasant 76-year-old male with history of hypertension, hyperlipidemia, diabetes mellitus type 2, atrial flutter status post ablation, sick sinus syndrome. Patient has been experiencing some dyspnea over the last few years and therefore underwent a stress test which showed apical ischemia. Therefore recommendation was for heart catheterization. CONSENT:I have discussed the risks, benefits and alternative therapies for the above-mentioned procedure and for both sedation/analgesia as well as necessary blood product administration, if indicated, as they pertain to this patient. The patient has indicated understanding and acceptance of the risks and procedures discussed. PROCEDURE: After the risks, benefits and alternatives of the above mentioned procedure explained in detail with the patient, informed consent was obtained. Patient was taken to the catheterization lab and prepped and draped in usual fashion. 1% lidocaine was used to anesthetize the right radial artery. A 6- [place] sheath was placed in the right radial artery using modified Seldinger technique. Left coronary angiography was performed with a 5-[place] JL 3.5 catheter and right coronary angiography was performed with a 6-[place] AR2 cat heter in various views. A 5-[place] FR5 catheter was inserted into the left ventricle and pressure measurements were obtained. The decision was made to perform iFR of the LAD. Heparin was given for ACT greater than 250. A 6-[place] CLS 3.5 guide was used to engage the left main. A 0.014 iFR pressure wire was advanced in the left main and normalized. The wire was then advanced approximately 1 cm distal to the LAD lesion and iFR measurement was performed and was abnormal at 0.82. Therefore the decision was made to perform PCI. Predilation was performed with a 2.0 x 12 mm balloon. Next a 2.5 x 15 mm Xience EUGENIA was placed in the mid LAD. There was a mild 30% stepdown distally to the stent and therefore the decision was made to perform IVUS. IVUS showed well-expanded stent with reference vessel approximately 2.5 x 2.5 mm and a calcified plaque distal to the stent however no dissection. Therefore the decision was made to treat this medically. The wire was pulled on final angiograms were performed. Predilation there was 70% stenosis with MICHELLE 3 flow and postintervention there was less than 10% stenosis with MICHELLE 3 flow. The right radial sheath was removed and a TR band was placed with hemostasis achieved. The patient tolerated the procedure well. Patient was transported back to the post catheterization holding area in stable condition. Conscious Sedation: Patient was monitored under the direct supervision of vision of myself for conscious sedation using Versed and fentanyl for a total duration of 72 minutes HEMODYNAMICS: AO: 132/69 LV: 136/5, LVEDP 17mmHg. There was an 8mmHg peak to peak gradient with pullback across the aortic valve. SELECTIVE CORONARY ARTERIOGRAPHY: LEFT MAIN: The left main is a large caliber vessel which bifurcates into the LAD and circumflex. There is 20% left main stenosis. LEFT ANTERIOR DESCENDING CORONARY ARTERY: LAD is a large caliber vessel which wraps around to the apex. There is a mid LAD 70% stenosis and otherwise mild disease up to 30% stenosis. LEFT CIRCUMFLEX CORONARY ARTERY: Left circumflex is a large caliber vessel with mild luminal irregularties. OM1 is moderate to large caliber and has a proximal 50% stenosis. Otherwise there are mild luminal irregularities. The circumflex gives off the PDA and is the dominant vessel. RIGHT CORONARY ARTERY: The right coronary artery is a small caliber vessel which gives off an acute marginal branch and is a non dominant vessel. There is no significant stenosis. FINAL IMPRESSION: 1. CAD as described above including 70% mid LAD stenosis and 50% proximal OM1 stenosis. 2. iFR abnormal LAD, s/p PCI mid LAD with a 2.5 x 15mm Xience EUGENIA. 3. Mildly elevated left sided filling pressures. 4. Minimal 8 mmHg peak to peak aortic valve gradient consistent with mild aortic stenosis. PLAN: 1. Aggressive risk factor modification per most recent ACC/AHA guidelines. 2. Continue Plavix and Eliquis for minimum of 6 months.
[2021-03-30 15:44] VITALS: RESP 18
[2021-03-30 16:01] VITALS: BP 162/80; PULSE 64
[2021-03-30] MEDS ORDERED: carvediloL 3.125 MG TAB PO SCH (17:30)
[2021-03-30] MEDS ORDERED: amLODIPine 10 MG TAB PO SCH (21:00)
[2021-03-30] MEDS ORDERED: ATORVASTATIN 40 MG TAB PO SCH (21:00)
[2021-03-30] MEDS ORDERED: APIXABAN 5 MG TAB PO SCH (21:00)
[2021-03-31] MEDS ORDERED: GLIMEPIRIDE 1 MG TAB PO SCH (07:30)
[2021-03-31] MEDS ORDERED: CLOPIDOGREL 75 MG TAB PO SCH (09:00)
[2021-03-31] MEDS ORDERED: CHOLECALCIFEROL 125 MCG (5000 IU) TABLET PO SCH (09:00)
[2021-03-31] MEDS ORDERED: TRIAMTERENE-HCTZ 37.5-25MG 1 EACH TAB PO SCH (09:00)
[2021-03-31] MEDS ORDERED: LOSARTAN 25 MG TAB PO SCH (09:00)
== END 2021-03-30 14:00 | disposition home or self-care (01) ==
LOC: CATHCVL 06:33
PROVIDERS: ATTEND Internal Medicine
DX: I25.10 Atherosclerotic heart disease of native coronary artery without angina pectoris (principal); I25.84 Coronary atherosclerosis due to calcified coronary lesion; R94.39 Abnormal result of other cardiovascular function study; I49.5 Sick sinus syndrome; I48.92 Unspecified atrial flutter; I48.19 Other persistent atrial fibrillation; E11.9 Type 2 diabetes mellitus without complications; Z20.822 Contact with and (suspected) exposure to COVID-19; E66.9 Obesity, unspecified; Z68.41 Body mass index [BMI] 40.0-44.9, adult; Z82.49 Family history of ischemic heart disease and other diseases of the circulatory system; Z72.0 Tobacco use; Z79.01 Long term (current) use of anticoagulants; Z79.84 Long term (current) use of oral hypoglycemic drugs; Z79.899 Other long term (current) drug therapy
CPT/HCPCS: 93571; 92978; 93458; 87635; C9600; C1887 ×2; C1894; C1725; C1753; C1769; C1874; J2250; J2001; J3010; J1644; Q9967 ×2

== ENCOUNTER 2021-08-03 20:33 | Observation (INO) | payer MEDICARE ==
[2021-08-03] MEDS ORDERED: ACETAMINOPHEN TAB 500 MG TAB PO STA (21:35)
--- NOTE | 2021-08-03 21:45 | ED ---
General Adult HPI - General Chief complaint: Fall Stated complaint: Weakness, fall Time Seen by Provider: 08/03/21 21:02 Source: patient, EMS, RN notes reviewed Mode of arrival: EMS Limitations: no limitations - History of Present Illness Initial comments: This is a pleasant 76-year-old male with a history of atrial flutter, cancer, diabetes mellitus, hyperlipidemia, hypertension, and osteoarthritis. Patient states that he has had some generalized weakness going on for the last week. States that he fell yesterday, states he felt some pain in his right lower back. States this pain is exacerbated by movement. Alleviated by rest. There was no direct trauma to this area. Patient fell again today when he just lost his balance. He states he landed on his butt. However he could not get up. He denies any head or neck injury that he knows of. However he is on blood thinners. Such as chest pain or presyncopal symptoms. No headache, no fever or chills, no changes in vision or hearing, no sore throat or difficulty with speech, no neck pain, no chest pain or shortness of breath, no abdominal pain, no nausea or vomiting, no changes in urination or bowel movements, no numbness or tingling, no extremity pain, no skin rashes or lesions. , Patient has had a mild cough as well as generalized weakness. Some pain to the right lower back which is exacerbated by movement. This was present before either of the falls. No symptoms consistent with cauda equina syndrome. - Related Data Home Medications Medication Instructions Recorded Confirmed amLODIPine BESYLATE 10 mg PO DAILY 12/18/19 08/03/21 Acetaminophen [Tylenol Arthritis] 650 mg PO Q6H PRN 03/24/21 08/03/21 Apixaban [Eliquis] 5 mg PO BID 03/24/21 08/03/21 Carvedilol [Coreg] 3.125 mg PO BID-W/MEALS 03/24/21 08/03/21 Cholecalciferol [Vitamin D3 (125 125 mcg PO DAILY 08/03/21 08/03/21 Mcg = 5000 Iu)] Glimepiride [Amaryl] 2 mg PO AC-BRKFST 08/03/21 08/03/21 Losartan [Cozaar] 25 mg PO DAILY 08/03/21 08/03/21 Rosuvastatin Calcium [Crestor] 40 mg PO DAILY 08/03/21 08/03/21 Previous Rx's Medication Instructions Recorded Triamterene-Hctz 37.5-25Mg 1 tab PO DAILY #90 tablet 01/27/20 [Maxzide 37.5-25] Clopidogrel [Plavix] 75 mg PO DAILY #90 tablet 03/30/21 Allergies Allergy/AdvReac Type Severity Reaction Status Date / Time Milk Containing Products Allergy Unknown Verified 08/03/21 22:47 [Dairy] Review of Systems ROS Statement: Those systems with pertinent positive or pertinent negative responses have been documented in the HPI. ROS Other: All systems not noted in ROS Statement are negative. Past Medical History Past Medical History: Atrial Flutter, Cancer, Diabetes Mellitus, Hyperlipidemia, Hypertension, Osteoarthritis (OA), Skin Disorder Additional Past Medical History / Comment(s): , eczema, arthritis; FOUND TO HAVE ABD MASS, NEAR AORTA AND VENA CAVA -. 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 CARDIAC ABLATION Past Anesthesia/Blood Transfusion Reactions: Previous Problems w/ Anesthesia, Postoperative Nausea & Vomiting (PONV) Type of Cardiac Device: Permanent Pacemaker Device Placement Date:: 2018 POSSIBLE DATE Smoking Status: Former smoker - Past Family History Sister(s) Family Medical History: Cancer General Exam - General Exam Comments Initial Comments: Deconditioned appearing 76-year-old male in no acute distress when I enter the room. Does not appear to be ill or toxic. Limitations: no limitations General appearance: alert, in no apparent distress Head exam: Present: atraumatic, normocephalic, normal inspection Eye exam: Present: normal appearance, PERRL, EOMI. Absent: scleral icterus, conjunctival injection, periorbital swelling ENT exam: Present: normal exam, mucous membranes moist Neck exam: Present: normal inspection, full ROM. Absent: tenderness, meningismus, lymphadenopathy Respiratory exam: Present: normal lung sounds bilaterally. Absent: respiratory distress, wheezes, rales, rhonchi, stridor Cardiovascular Exam: Present: regular rate, normal rhythm, normal heart sounds. Absent: systolic murmur, diastolic murmur, rubs, gallop, clicks GI/Abdominal exam: Present: soft, normal bowel sounds. Absent: distended, tenderness, guarding, rebound, rigid Extremities exam: Present: normal inspection, full ROM, normal capillary refill. Absent: tenderness, pedal edema, joint swelling, calf tenderness Back exam: Present: normal inspection, tenderness, paraspinal tenderness (Mild tenderness in the right lumbar paraspinals.), other (There is no midline tenderness to thoracic or lumbar spine. No bony point tenderness.). Absent: CVA tenderness (R), CVA tenderness (L), muscle spasm, vertebral tenderness, rash noted Neurological exam: Present: alert, oriented X3, CN II-XII intact Psychiatric exam: Present: normal affect, normal mood Skin exam: Present: warm, dry, intact, normal color, rash (Patient has a well- demarcated inframammary rash bilaterally consistent with fungal dermatitis.) Course Vital Signs 08/03/21 08/03/21 08/04/21 20:35 23:00 00:00 Temperature 99.7 F H 98.3 F Pulse Rate 80 79 80 Respiratory 20 24 20 Rate Blood Pressure 127/70 121/77 120/76 O2 Sat by Pulse 94 L 94 L 95 Oximetry 08/04/21 01:00 Temperature Pulse Rate 80 Respiratory 20 Rate Blood Pressure 134/79 O2 Sat by Pulse 96 Oximetry - Reevaluation(s) Reevaluation #1: 08/03/21 22:56 Medical record is reviewed Symptoms are improved here in the emergency department Patient is informed of results and questions answered Patient in no distress Reevaluation #2: 08/03/21 23:56 Reevaluation, patient's troponin and elevated, discussed with ED attending physician. Patient is already anticoagulated. Aspirin given EKG Findings - EKG Comments: EKG Findings:: EKG done at 2247 read by the ED attending physician reveals electronic paced rhythm with 1 PVC. When compared with previous study from 2020 this is a similar morphology. No evidence of acute changes. Medical Decision Making - Medical Decision Making Patient presented with multiple issues to include multiple falls, right low back pain, generalized weakness, patient CT scans did not show any acute pathology. Patient likely has a contusion to his lower back. Patient cannot positive for influenza A. Patient's troponin was also elevated. There was no evidence of ST elevation on EKG. This was discussed with ED attending physician. Also discussed with the admitting physician, Dr. Cadet. Patient is already on anticoagulation for atrial fibrillation. Patient was given aspirin here in the ER. He had mild hypokalemia which was supplemented here in the ER as well. Patient was reevaluated and never had any chest pain prior to or in the ED. Continued the patient's home medication aside from his diabetes medications. Sliding scale initiated. We'll admit with cardiology consultation, physical therapy consultation. Repeat EKG done at 12:20 AM and read by the ED attending physician reveals no significant change from the initial EKG. Ventricular rate of 88. Right bundle branch block noted, left anterior fascicular block. No evidence of ST elevation. Patient does have some Michael complexes noted The case was discussed in detail with ED attending physician. Presentation, findings, treatment plan discussed in detail. SupervisorDr. Guevara - Lab Data Result diagrams: 08/03/21 21:24 08/03/21 22:40 Lab Results 08/03/21 08/03/21 08/03/21 Range/Units 21:24 21:24 21:24 WBC 12.7 H (3.8-10.6) k/uL RBC 4.96 (4.30-5.90) m/uL Hgb 14.9 (13.0-17.5) gm/dL Hct 44.0 (39.0-53.0) % MCV 88.6 (80.0-100.0) fL MCH 30.0 (25.0-35.0) pg MCHC 33.9 (31.0-37.0) g/dL RDW 14.4 (11.5-15.5) % Plt Count 122 L (150-450) k/uL MPV 7.7 Neutrophils % 83 % Lymphocytes % 9 % Monocytes % 6 % Eosinophils % 0 % Basophils % 0 % Neutrophils # 10.6 H (1.3-7.7) k/uL Lymphocytes # 1.1 (1.0-4.8) k/uL Monocytes # 0.8 (0-1.0) k/uL Eosinophils # 0.0 (0-0.7) k/uL Basophils # 0.1 (0-0.2) k/uL PT 12.9 H (9.0-12.0) sec INR 1.2 H (<1.2) APTT 30.8 H (22.0-30.0) sec Sodium (137-145) mmol/L Potassium (3.5-5.1) mmol/L Chloride (98-107) mmol/L Carbon Dioxide (22-30) mmol/L Anion Gap mmol/L BUN (9-20) mg/dL Creatinine (0.66-1.25) mg/dL Est GFR (CKD-EPI)AfAm (>60 ml/min/1.73 sqM) Est GFR (CKD-EPI)NonAf (>60 ml/min/1.73 sqM) Glucose (74-99) mg/dL Calcium (8.4-10.2) mg/dL Magnesium (1.6-2.3) mg/dL Total Bilirubin (0.2-1.3) mg/dL AST (17-59) U/L ALT (4-49) U/L Alkaline Phosphatase (38-126) U/L Troponin I (0.000-0.034) ng/mL NT-Pro-B Natriuret Pep 2910 pg/mL Total Protein (6.3-8.2) g/dL Albumin (3.5-5.0) g/dL TSH (0.465-4.680) mIU/L Coronavirus (PCR) (Not Detectd) Influenza Type A RNA (Not Detectd) Influenza Type B (PCR) (Not Detectd) 08/03/21 08/03/21 08/03/21 Range/Units 21:24 21:24 22:40 WBC (3.8-10.6) k/uL RBC (4.30-5.90) m/uL Hgb (13.0-17.5) gm/dL Hct (39.0-53.0) % MCV (80.0-100.0) fL MCH (25.0-35.0) pg MCHC (31.0-37.0) g/dL RDW (11.5-15.5) % Plt Count (150-450) k/uL MPV Neutrophils % % Lymphocytes % % Monocytes % % Eosinophils % % Basophils % % Neutrophils # (1.3-7.7) k/uL Lymphocytes # (1.0-4.8) k/uL Monocytes # (0-1.0) k/uL Eosinophils # (0-0.7) k/uL Basophils # (0-0.2) k/uL PT (9.0-12.0) sec INR (<1.2) APTT (22.0-30.0) sec Sodium (137-145) mmol/L Potassium (3.5-5.1) mmol/L Chloride (98-107) mmol/L Carbon Dioxide (22-30) mmol/L Anion Gap mmol/L BUN (9-20) mg/dL Creatinine (0.66-1.25) mg/dL Est GFR (CKD-EPI)AfAm (>60 ml/min/1.73 sqM) Est GFR (CKD-EPI)NonAf (>60 ml/min/1.73 sqM) Glucose (74-99) mg/dL Calcium (8.4-10.2) mg/dL Magnesium (1.6-2.3) mg/dL Total Bilirubin (0.2-1.3) mg/dL AST (17-59) U/L ALT (4-49) U/L Alkaline Phosphatase (38-126) U/L Troponin I 0.345 H* (0.000-0.034) ng/mL NT-Pro-B Natriuret Pep pg/mL Total Protein (6.3-8.2) g/dL Albumin (3.5-5.0) g/dL TSH (0.465-4.680) mIU/L Coronavirus (PCR) Not Detected (Not Detectd) Influenza Type A RNA Detected H (Not Detectd) Influenza Type B (PCR) Not Detected (Not Detectd) 08/03/21 Range/Units 22:40 WBC (3.8-10.6) k/uL RBC (4.30-5.90) m/uL Hgb (13.0-17.5) gm/dL Hct (39.0-53.0) % MCV (80.0-100.0) fL MCH (25.0-35.0) pg MCHC (31.0-37.0) g/dL RDW (11.5-15.5) % Plt Count (150-450) k/uL MPV Neutrophils % % Lymphocytes % % Monocytes % % Eosinophils % % Basophils % % Neutrophils # (1.3-7.7) k/uL Lymphocytes # (1.0-4.8) k/uL Monocytes # (0-1.0) k/uL Eosinophils # (0-0.7) k/uL Basophils # (0-0.2) k/uL PT (9.0-12.0) sec INR (<1.2) APTT (22.0-30.0) sec Sodium 132 L (137-145) mmol/L Potassium 3.3 L (3.5-5.1) mmol/L Chloride 99 (98-107) mmol/L Carbon Dioxide 24 (22-30) mmol/L Anion Gap 9 mmol/L BUN 24 H (9-20) mg/dL Creatinine 0.81 (0.66-1.25) mg/dL Est GFR (CKD-EPI)AfAm >90 (>60 ml/min/1.73 sqM) Est GFR (CKD-EPI)NonAf 88 (>60 ml/min/1.73 sqM) Glucose 228 H (74-99) mg/dL Calcium 8.3 L (8.4-10.2) mg/dL Magnesium 1.9 (1.6-2.3) mg/dL Total Bilirubin 1.1 (0.2-1.3) mg/dL AST 55 (17-59) U/L ALT 28 (4-49) U/L Alkaline Phosphatase 59 (38-126) U/L Troponin I (0.000-0.034) ng/mL NT-Pro-B Natriuret Pep pg/mL Total Protein 6.5 (6.3-8.2) g/dL Albumin 3.7 (3.5-5.0) g/dL TSH 1.730 (0.465-4.680) mIU/L Coronavirus (PCR) (Not Detectd) Influenza Type A RNA (Not Detectd) Influenza Type B (PCR) (Not Detectd) Critical Care Time Critical Care Time: Yes (40) Critical Care Time: Multiple diagnoses, multiple re-evaluations. Reevaluation of the patient. Evaluation of diagnostics. Ordering of interventions. Non-STEMI. Disposition Clinical Impression: Non-STEMI (non-ST elevated myocardial infarction), Influenza A, Multiple falls, Hypokalemia, Contusion of lower back, Dermatitis fungal Disposition: ADMITTED IP TO THIS HOSP Condition: Fair Decision to Admit Reason: Admit from EC Decision Time: 23:52
--- NOTE | 2021-08-03 22:11 | XR ---
EXAMINATION TYPE: XR chest 1V portable DATE OF EXAM: 08/03/2021 COMPARISON: 07/17/2013 HISTORY: Cough TECHNIQUE: Single view FINDINGS: There is no heart failure nor confluent pneumonic infiltrate. There is poor inspiration. Th ere is left axillary pacemaker. There is no pleural effusion. IMPRESSION: Poor inspiration. No significant change compared to old exam
--- NOTE | 2021-08-03 22:13 | XR ---
EXAMINATION TYPE: XR lumbar spine 2 or 3V DATE OF EXAM: 08/03/2021 COMPARISON: 04/15/2014 HISTORY: Back pain TECHNIQUE: 3 views FINDINGS: There is a slight lumbar dextroscoliosis. There is multilevel hypertrophic degenerative dis c changes in the lumbar spine. No compression fracture. Sacroiliac joints are intact. IMPRESSION: Moderate multilevel spondylotic changes. No fracture. No adverse change compared to old e xam. Stable minimal degenerative first-degree L4-5 spondylolisthesis.
[2021-08-03 22:20] LABS: Basophils # (A) 0.1 k/uL (0-0.2); Basophils % (A) 0 %; Eosinophils % (A) 0 %; HGB 14.9 gm/dL (13.0-17.5); Lymphocytes # (A) 1.1 k/uL (1.0-4.8); Lymphocytes % (A) 9 %; MCHC 33.9 g/dL (31.0-37.0); MCV 88.6 fL (80.0-100.0); Mean Platelet Volume 7.7; Monocytes # (A) 0.8 k/uL (0-1.0); Monocytes % (A) 6 %; Neutrophils # (A) 10.6 k/uL (1.3-7.7); Neutrophils % (A) 83 %; Platelet Count 122 k/uL (150-450); RBC 4.96 m/uL (4.30-5.90); RDW 14.4 % (11.5-15.5); WBC 12.7 k/uL (3.8-10.6)
--- NOTE | 2021-08-03 22:45 | CT ---
EXAMINATION TYPE: CT brain shahab moore con DATE OF EXAM: 08/03/2021 COMPARISON: CT brain 06/27/2013 HISTORY: Fall, off balance CT DLP: 1856.2 mGycm Automated exposure control for dose reduction was used. There is some cerebral cortical atrophy. There is no mass effect or midline shift. No sign of intracr anial hemorrhage. Calvarium is intact. There is normal aeration of the mastoid sinuses. There is normal alignment of the cervical vertebra. There is degenerative disc space narrowing at C5- 6 and C6-7 with spurring of the endplates facet joints are intact. There is minor spurring of the end plates. IMPRESSION: Mild atrophy. No acute intracranial abnormality. No significant change. Cervical spondylotic changes mainly at C5-6 and C6-7. No fracture seen.
[2021-08-03] MEDS ORDERED: OSELTAMIVIR 75 MG CAP PO STA (22:53)
[2021-08-03 22:56] LABS: INR 1.2 (<1.2); Partial Thromboplastin Time 30.8 sec (22.0-30.0); Prothrombin Time 12.9 sec (9.0-12.0)
[2021-08-03] MEDS ORDERED: HYDROcodone/APAP 5-325MG 1 EACH TAB PO STA (23:05)
[2021-08-03 23:19] LABS: ALT 28 U/L (4-49); AST 55 U/L (17-59); African American GFR (CKD) >90 (>60 ml/min/1.73 sqM); Albumin 3.7 g/dL (3.5-5.0); Alkaline Phosphatase 59 U/L (38-126); Anion Gap 9 mmol/L; Blood Urea Nitrogen 24 mg/dL (9-20); Calcium 8.3 mg/dL (8.4-10.2); Carbon Dioxide 24 mmol/L (22-30); Chloride 99 mmol/L (98-107); Glucose 228 mg/dL (74-99); Magnesium 1.9 mg/dL (1.6-2.3); Non-African American GFR(CKD) 88 (>60 ml/min/1.73 sqM); Potassium 3.3 mmol/L (3.5-5.1); Sodium 132 mmol/L (137-145); Total Bilirubin 1.1 mg/dL (0.2-1.3); Total Protein 6.5 g/dL (6.3-8.2)
--- NOTE | 2021-08-03 23:32 | CT ---
EXAMINATION TYPE: CT lumbar spine wo con DATE OF EXAM: 08/03/2021 COMPARISON: 11/22/2018 HISTORY: fall CT DLP: 2070.4 mGycm Automated exposure control for dose reduction was used. Images obtained from the level of T12-S1 vertebra without contrast. The lumbar vertebrae have fairly normal alignment. There is a minimal degenerative subluxation at L4- 5. Posterior elements are intact. There is multilevel hypertrophic facet arthropathy. There is spurri ng of the endplates throughout the lumbar spine and lower thoracic spine. There is vacuum disc at mul tiple levels. No compression fracture seen. There are infiltrates at the lung bases. There is no lumb ar paraspinal mass. Calculi in the kidneys. There is multilevel lumbar bony spinal stenosis. Sacroili ac joints are intact. IMPRESSION: Multilevel moderate spondylotic changes. Multilevel spinal stenosis. No fracture. There is not a sign ificant progression of disease compared to old exam.
[2021-08-03] MEDS ORDERED: ASPIRIN 81 MG PO STA (23:45)
[2021-08-03] MEDS ORDERED: Potassium Replacement Protocol 1 EACH MISC MISCELLANE PRN (23:46)
[2021-08-03 23:53] LABS: Appearance,Urine Clear (Clear); Bilirubin,Urine Negative (Negative); Blood,Urine Small (Negative); Color,Urine Yellow; Glucose,Urine (UA) 4+ (Negative); Ketones,Urine 1+ (Negative); Leukocyte Esterase,Urine Negative (Negative); Mucus,Urine Rare /hpf; Nitrite,Urine Negative (Negative); PH, Urine 5.5 (5.0-8.0); Protein,Urine 1+ (Negative); RBC,Urine 1 /hpf (0-5); Specific Gravity,Urine 1.026 (1.001-1.035); Urobilinogen,Urine <2.0 mg/dL (<2.0); WBC,Urine <1 /hpf (0-5)
[2021-08-04] MEDS ORDERED: NITROGLYCERIN SL TABS 0.4 MG TAB SUBLINGUAL PRN (00:38)
[2021-08-04] MEDS: POTASSIUM CHLORIDE ER 20 MEQ TAB.ER PO SCH ×2 (01:05→03:23)
[2021-08-04] MEDS: guaiFENesin 600 MG TABLET.ER PO SCH ×3 (01:14→20:30)
[2021-08-04 02:05] LABS: Glucose,Whole Blood 253 mg/dL (75-99)
--- NOTE | 2021-08-04 06:52 | P.HPIM ---
History of Present Illness H&P Date: 08/04/21 Chief Complaint: Frequent falls at home 76-year-old male with atrial flutter status post pacemaker on [place] Patient comes in due to frequent falling at home over the past few days he denies any associated symptoms of presyncope denies any dizziness lightheadedness shortness of breath palpitations chest pain. He reports that he uses a walker [place] home however without tripping or any accidents he keeps falling usually he falls on his back butt denies any head injury denies any loss of consciousness, he lives with his he started growing concerned and decided to come in for evaluation. He denies any new focal neuro deficits he reports some discomfort and pain in his right flank which she thinks is related to one this is falls when he fell on his side he denies having had any issues like this before. Denies any changes in his vision or hearing. Denies any recent changes in his medications Patient has history of atrial flutter status post pacemaker is on blood thinners Workup in the ED showed elevated tropes, mild hypokalemia and hyponatremia CT imaging of the lumbar spine showed spinal stenosis EKG is paced rhythm showed right bundle branch block, patient has elevated troponin unknown baseline Head CT showed no acute findings. He tested positive for influenza A he otherwise denies any fevers or chills denies any coughing Review of Systems Pertinent positives as noted in HPI. All other systems were reviewed and are negative Past Medical History Past Medical History: Atrial Flutter, Cancer, Diabetes Mellitus, Hyperlipidemia, Hypertension, Osteoarthritis (OA), Skin Disorder Additional Past Medical History / Comment(s): , eczema, arthritis; FOUND TO HAVE ABD MASS, NEAR AORTA AND VENA CAVA -. 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 CARDIAC ABLATION Past Anesthesia/Blood Transfusion Reactions: Previous Problems w/ Anesthesia, Postoperative Nausea & Vomiting (PONV) Type of Cardiac Device: Permanent Pacemaker Device Placement Date:: 2018 POSSIBLE DATE Smoking Status: Former smoker - Past Family History Sister(s) Family Medical History: Cancer Medications and Allergies Home Medications Medication Instructions Recorded Confirmed Type amLODIPine BESYLATE 10 mg PO DAILY 12/18/19 08/03/21 History Triamterene-Hctz 37.5-25Mg 1 tab PO DAILY #90 tablet 01/27/20 08/03/21 Rx [Maxzide 37.5-25] Acetaminophen [Tylenol Arthritis] 650 mg PO Q6H PRN 03/24/21 08/03/21 History Apixaban [Eliquis] 5 mg PO BID 03/24/21 08/03/21 History Carvedilol [Coreg] 3.125 mg PO BID-W/MEALS 03/24/21 08/03/21 History Clopidogrel [Plavix] 75 mg PO DAILY #90 tablet 03/30/21 08/03/21 Rx Cholecalciferol [Vitamin D3 (125 125 mcg PO DAILY 08/03/21 08/03/21 History Mcg = 5000 Iu)] Glimepiride [Amaryl] 2 mg PO AC-BRKFST 08/03/21 08/03/21 History Losartan [Cozaar] 25 mg PO DAILY 08/03/21 08/03/21 History Rosuvastatin Calcium [Crestor] 40 mg PO DAILY 08/03/21 08/03/21 History Allergies Allergy/AdvReac Type Severity Reaction Status Date / Time Milk Containing Products Allergy Unknown Verified 08/03/21 22:47 [Dairy] Physical Exam Vitals: Vital Signs Temp Pulse Resp BP Pulse Ox 08/04/21 03:00 98.7 F 78 18 120/71 95 08/04/21 01:00 80 20 134/79 96 08/04/21 00:00 80 20 120/76 95 08/03/21 23:00 98.3 F 79 24 121/77 94 L 08/03/21 20:35 99.7 F H 80 20 127/70 94 L Intake and Output 08/03/21 08/03/21 08/04/21 14:59 22:59 06:59 Other: Weight 117.027 kg Constitutional: No acute distress, conversant, pleasant Eyes: Anicteric sclerae, moist conjunctiva, Pupils equal round reactive to light ENMT: NC/AT Oropharynx clear, no erythema, or exudates Neck: Supple, no masses, or JVD No carotid bruits No thyromegaly Lungs: Clear to auscultation Clear to percussion Normal respiratory effort, no accessory muscle use Cardiovascular: Heart regular in rate and rhythm, No murmurs, gallops, or rubs Trace bilateral peripheral edema Abdominal: Soft Nontender, no guarding, rebound or rigidity Abdomen moving with respiration Normoactive bowel sounds No hepatomegaly, No splenomegaly No palpable mass No abdominal wall hernia noted Skin: Chronic skin changes bilateral legs otherwise Normal temperature, tone, texture, turgor Extremities: No digital cyanosis No clubbing Pedal pulses weak and symmetrical, capillary refill immediate Radial pulses intact and symmetrical No calf tenderness Psychiatric: Alert and oriented to person, place Appropriate affect Neuro Muscles Strength4/5 in all 4 extremities Sensation to light touch grossly present throughout Cranial nerves II-XII grossly intact Lymphatics: no palpable cervical or supraclavicular , or inguinal lymph nodes Results CBC & Chem 7: 08/03/21 21:24 08/03/21 22:40 Labs: Abnormal Lab Results - Last 24 Hours (Table) 08/03/21 08/03/21 08/03/21 Range/Units 21:24 21:24 21:24 WBC 12.7 H (3.8-10.6) k/uL Plt Count 122 L (150-450) k/uL Neutrophils # 10.6 H (1.3-7.7) k/uL PT 12.9 H (9.0-12.0) sec INR 1.2 H (<1.2) APTT 30.8 H (22.0-30.0) sec Sodium (137-145) mmol/L Potassium (3.5-5.1) mmol/L BUN (9-20) mg/dL Glucose (74-99) mg/dL POC Glucose (mg/dL) (75-99) mg/dL Calcium (8.4-10.2) mg/dL Troponin I (0.000-0.034) ng/mL Urine Protein (Negative) Urine Glucose (UA) (Negative) Urine Ketones (Negative) Urine Blood (Negative) Urine Mucus (None) /hpf Influenza Type A RNA Detected H (Not Detectd) 08/03/21 08/03/21 08/03/21 Range/Units 22:40 22:40 23:30 WBC (3.8-10.6) k/uL Plt Count (150-450) k/uL Neutrophils # (1.3-7.7) k/uL PT (9.0-12.0) sec INR (<1.2) APTT (22.0-30.0) sec Sodium 132 L (137-145) mmol/L Potassium 3.3 L (3.5-5.1) mmol/L BUN 24 H (9-20) mg/dL Glucose 228 H (74-99) mg/dL POC Glucose (mg/dL) (75-99) mg/dL Calcium 8.3 L (8.4-10.2) mg/dL Troponin I 0.345 H* (0.000-0.034) ng/mL Urine Protein 1+ H (Negative) Urine Glucose (UA) 4+ H (Negative) Urine Ketones 1+ H (Negative) Urine Blood Small H (Negative) Urine Mucus Rare H (None) /hpf Influenza Type A RNA (Not Detectd) 08/04/21 08/04/21 08/04/21 Range/Units 00:15 01:44 02:04 WBC (3.8-10.6) k/uL Plt Count (150-450) k/uL Neutrophils # (1.3-7.7) k/uL PT (9.0-12.0) sec INR (<1.2) APTT (22.0-30.0) sec Sodium (137-145) mmol/L Potassium (3.5-5.1) mmol/L BUN (9-20) mg/dL Glucose (74-99) mg/dL POC Glucose (mg/dL) 253 H (75-99) mg/dL Calcium (8.4-10.2) mg/dL Troponin I 0.327 H* 0.292 H* (0.000-0.034) ng/mL Urine Protein (Negative) Urine Glucose (UA) (Negative) Urine Ketones (Negative) Urine Blood (Negative) Urine Mucus (None) /hpf Influenza Type A RNA (Not Detectd) Assessment and Plan Assessment: Influenza A positive Generalized weakness and frequent falls at home Contact and droplet precautions Initiated on Tamiflu PT evaluation Fall precautions Orthopedic evaluation Symptomatic control if any fevers CT imaging of the spine showed spinal stenosis CT imaging of the brain showed no acute bleeding or findings Mild hypokalemia replace and follow-up levels Hyponatremia Gentle IV fluid hydration with normal saline Hold diuretics Elevated troches trending down Patient denies any chest pain Continue cardiac monitoring Chronic conditions history of a flutter status post pacemaker continue with blood thinners Diabetes mellitus, insulin sliding scale Hypertension resume cardiac meds Hyperlipidemia resume statin Full code DVT prophylaxis patient on blood thinner for a flutter Anticipated length of stay less than 2 midnights
[2021-08-04] MEDS: ALBUTEROL NEBULIZED 2.5 MG/3 ML INHALATION PRN (07:29)
[2021-08-04] MEDS ORDERED: carvediloL 3.125 MG TAB PO SCH (07:30)
[2021-08-04 08:03] LABS: Glucose,Whole Blood 263 mg/dL (75-99)
[2021-08-04] MEDS: ATORVASTATIN 80 MG TAB PO SCH (08:34)
[2021-08-04] MEDS: carvediloL 6.25 MG TAB PO SCH ×2 (08:34→17:33)
[2021-08-04] MEDS: CLOPIDOGREL 75 MG TAB PO SCH (08:34)
[2021-08-04] MEDS: amLODIPine 10 MG TAB PO SCH (08:34)
[2021-08-04] MEDS: INSULIN ASPART (NovoLOG) 100 UNIT/ML VIAL SQ SCH ×4 (08:35→20:41)
[2021-08-04] MEDS: APIXABAN 5 MG TAB PO SCH ×2 (08:35→20:28)
[2021-08-04] MEDS: LOSARTAN 25 MG TAB PO SCH (08:35)
[2021-08-04] MEDS ORDERED: TRIAMTERENE-HCTZ 37.5-25MG 1 EACH TAB PO SCH (09:00)
[2021-08-04] MEDS: NYSTATIN 100,000 UNIT/GM POWD 15 GM TOPICAL SCH ×3 (09:28→20:42)
[2021-08-04 11:00] LABS: Glucose,Whole Blood 289 mg/dL (75-99)
--- NOTE | 2021-08-04 12:07 | CA ---
Transthoracic Echo Report Name: Bam Mcwilliams Age: 76 Gender: M : 1945 Exam Date: 08/04/2021 09:50 Exam Location: [place] [facility] Ht (in): 70 Wt (lb): 258 Ordering Physician: Cait Quesada Attending/Referring Phys: Associate Professor Of Biology Emily Lucero RDCS Procedure CPT: Indications: elevated troponin Cardiac Hx: Technical Quality: Technically difficult study Contrast 1: Lumason Total Dose (mL): 4 Contrast 2: Total Dose (mL): MEASUREMENTS (Male / Female) Normal Values 2D ECHO LV Diastolic Diameter PLAX 5.9 cm 4.2 - 5.9 / 3.9 - 5.3 cm LV Systolic Diameter PLAX 4.2 cm IVS Diastolic Thickness 1.4 cm 0.6 - 1.0 / 0.6 - 0.9 cm LVPW Diastolic Thickness 1.6 cm 0.6 - 1.0 / 0.6 - 0.9 cm LV Relative Wall Thickness 0.5 LA Volume 93.6 cm??? 18 - 58 / 22 - 52 cm??? M-MODE Aortic Root Diameter MM 3.2 cm LA Systolic Diameter MM 5.1 cm LA Ao Ratio MM 1.6 AV Cusp Separation MM 1.1 cm DOPPLER AV Peak Velocity 219.1 cm/s AV Peak Gradient 19.2 mmHg AV Mean Velocity 159.1 cm/s AV Mean Gradient 11.6 mmHg AV Velocity Time Integral 37.3 cm LVOT Peak Velocity 83.0 cm/s LVOT Peak Gradient 2.8 mmHg TR Peak Velocity 210.2 cm/s TR Peak Gradient 17.7 mmHg Right Ventricular Systolic Press 22.7 mmHg FINDINGS Left Ventricle Moderately increased left ventricular wall thickness. Left ventricular ejection fraction is estimated at 40-45 %. Right Ventricle Right ventricle not well visualized. Pacemaker wire noted Right Atrium Right atrium not well visualized. Pacemaker wire noted Left Atrium Severely increased left atrial volume. No evidence for an atrial septal defect. Mitral Valve Mild mitral annular calcification. Mild to moderate mitral regurgitation. Aortic Valve Mild aortic stenosis with a peak gradient of 19 mmHg and a mean gradient of 12 mmHg. Trace aortic regurgitation. Tricuspid Valve Structurally normal tricuspid valve. Mild tricuspid regurgitation. Pulmonic Valve Trace pulmonic regurgitation. Pericardium No pericardial effusion. Aorta Normal size aortic root and proximal ascending aorta. CONCLUSIONS Left ventricular ejection fraction 40-45% Moderate LVH Severely dilated left atrium Mild aortic stenosis Mild to moderate mitral regurgitation Mild tricuspid regurgitation Previewed by: Dr. Juan Lee DO (Electronically Signed) Final Date: 04 August 2021 12:06
[2021-08-04] MEDS: SODIUM CHLORIDE 0.9% 1,000 ML IV SCH ×2 (12:59→20:41)
[2021-08-04] MEDS: OSELTAMIVIR 75 MG CAP PO SCH ×2 (15:19→20:28)
--- NOTE | 2021-08-04 16:58 | P.CNOR ---
History of Present Illness - [facility] Consult date: 08/04/21 Requesting physician: Vahe Jackson Consult reason: other (Lumbar stenosis and recent falls) History of present illness: Patient is a very pleasant 76-year-old male who is seen and examined at the bedside for further evaluation of his lumbar spine after further imaging showed evidence of lumbar stenosis and his history of recent falls. Patient states he has fallen twice over the past 2 weeks. He feels he is been more unsteady on his feet over the past 2 weeks. He is unsure why he feels unsteady. He denies any specific lower extremity weakness or radiculopathy bilaterally. He denies any upper extremity weakness or radiculopathy bilaterally. He does not feel lightheaded at the time of fall. He states he still unsteady and fall backwards onto his buttocks. He denies loss of consciousness or other injuries at the time of his falls. He denies any changes in penmanship or dexterity. He does admit to chronic low back pain but does not feel his back pain is changed. He is admitted to neurogenic claudication has difficulty prolonged ambulation and must stop frequently to rest. His legs feel heavy with prolonged ambulation but he does not have specific weakness or pain in his legs bilaterally. He does have a history of pacemaker placement which was placed greater than 1 year ago. He states he has not had any difficulty with his pacemaker. He is currently being seen and examined by medicine and cardiology. Lab testing in the emergency department did show elevated troponin levels mild hypokalemia and hyponatremia. His other medical diagnoses include atrial flutter, diabetes mellitus, hyperlipidemia, hypertension, and obesity. Past Medical History Past Medical History: Atrial Flutter, Cancer, Diabetes Mellitus, Hyperlipidemia, Hypertension, Osteoarthritis (OA), Skin Disorder Additional Past Medical History / Comment(s): , eczema, arthritis; FOUND TO HAVE ABD MASS, NEAR AORTA AND VENA CAVA -. 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 CARDIAC ABLATION Past Anesthesia/Blood Transfusion Reactions: Previous Problems w/ Anesthesia, Postoperative Nausea & Vomiting (PONV) Type of Cardiac Device: Permanent Pacemaker Device Placement Date:: 2018 POSSIBLE DATE Past Psychological History: No Psychological Hx Reported Smoking Status: Former smoker Past Alcohol Use History: Rare Additional Past Alcohol Use History / Comment(s): STARTED SMOKING AT AGE 22 QUIT SMOKING AT 27 SMOKED 1/2PPD Past Drug Use History: None Reported - Past Family History Sister(s) Family Medical History: Cancer Medications and Allergies Home Medications Medication Instructions Recorded Confirmed Type amLODIPine BESYLATE 10 mg PO DAILY 12/18/19 08/03/21 History Triamterene-Hctz 37.5-25Mg 1 tab PO DAILY #90 tablet 01/27/20 08/03/21 Rx [Maxzide 37.5-25] Acetaminophen [Tylenol Arthritis] 650 mg PO Q6H PRN 03/24/21 08/03/21 History Apixaban [Eliquis] 5 mg PO BID 03/24/21 08/03/21 History Carvedilol [Coreg] 3.125 mg PO BID-W/MEALS 03/24/21 08/03/21 History Clopidogrel [Plavix] 75 mg PO DAILY #90 tablet 03/30/21 08/03/21 Rx Cholecalciferol [Vitamin D3 (125 125 mcg PO DAILY 08/03/21 08/03/21 History Mcg = 5000 Iu)] Glimepiride [Amaryl] 2 mg PO AC-BRKFST 08/03/21 08/03/21 History Losartan [Cozaar] 25 mg PO DAILY 08/03/21 08/03/21 History Rosuvastatin Calcium [Crestor] 40 mg PO DAILY 08/03/21 08/03/21 History Allergies Allergy/AdvReac Type Severity Reaction Status Date / Time Milk Containing Products Allergy Unknown Verified 08/03/21 22:47 [Dairy] Physical Examination Osteopathic Statement: *. No significant issues noted on an osteopathic structural exam other than those noted in the History and Physical/Consult. Physical exam: Patient is awake, alert, and oriented 3 Vital signs stable Good chest excursion with deep inspiration and expiration Examination of lumbar spine reveals skin is intact with no abrasions, lacerations, or bruises; no erythema, purulence or signs of infection No pain with palpation along the thoracic or lumbar spines Dorsiflexion, plantarflexion, and extensor hallucis longus positive sustained bilaterally Patient is able to perform good active range of motion of bilateral upper extremities and lower extremities independently against resistance without difficulty Upper and lower extremity strength 5/5 bilaterally Patellar reflex 2+ bilaterally and Achilles reflexes 2+ bilaterally No upper extremity hyperreflexia Negative Hilary sign bilaterally Active good range of motion of the cervical spine throughout range of motion No lower extremity hyperreflexia bilaterally Straight leg test negative bilateral lower extremities Negative Lasegue's test bilaterally No signs or symptoms of DVT; no calf pain No pain with internal and external rotation of the hips bilaterally Neurovascularly intact Results Pertinent studies: CT lumbar spine taken on 08/03/2021: Degenerative scoliosis centered at L2-3; L1-2 large right osteophytic spurring and facet spondylosis greater on the left than the right with left neural foraminal narrowing; L2-3 retrolisthesis, left large osteophytic spurring, facet arthropathy and disc protrusion resulting in central canal stenosis and bilateral neural foraminal stenosis; L3-4 degenerative disc disease and large left osteophytic spurring and facet a rthropathy; L4-5 lateral listhesis and spondylolisthesis, vacuum disc phenomenon, severe facet arthropathy and disc protrusion with moderate to severe central canal stenosis and bilateral neural foraminal stenosis; L5-S1 vacuum disc phenomenon; T11-L2 large anterior osteophytic spurring; degenerative disc disease throughout the lumbar spine X-rays lumbosacral spine taken on 08/03/2021: Degenerative scoliosis centered at L2-3; L1-2 large right osteophytic spurring; L2-3 retrolisthesis and left large osteophytic spurring; L4-5 lateral listhesis and spondylolisthesis; T12-L2 large anterior osteophytic spurring; degenerative disc disease throughout the lumbar spine - Labs Labs: Abnormal Lab Results - Last 24 Hours (Table) 08/03/21 08/03/21 08/03/21 Range/Units 21:24 21:24 21:24 WBC 12.7 H (3.8-10.6) k/uL Plt Count 122 L (150-450) k/uL Neutrophils # 10.6 H (1.3-7.7) k/uL PT 12.9 H (9.0-12.0) sec INR 1.2 H (<1.2) APTT 30.8 H (22.0-30.0) sec Sodium (137-145) mmol/L Potassium (3.5-5.1) mmol/L BUN (9-20) mg/dL Glucose (74-99) mg/dL POC Glucose (mg/dL) (75-99) mg/dL Calcium (8.4-10.2) mg/dL Troponin I (0.000-0.034) ng/mL Urine Protein (Negative) Urine Glucose (UA) (Negative) Urine Ketones (Negative) Urine Blood (Negative) Urine Mucus (None) /hpf Influenza Type A RNA Detected H (Not Detectd) 08/03/21 08/03/21 08/03/21 Range/Units 22:40 22:40 23:30 WBC (3.8-10.6) k/uL Plt Count (150-450) k/uL Neutrophils # (1.3-7.7) k/uL PT (9.0-12.0) sec INR (<1.2) APTT (22.0-30.0) sec Sodium 132 L (137-145) mmol/L Potassium 3.3 L (3.5-5.1) mmol/L BUN 24 H (9-20) mg/dL Glucose 228 H (74-99) mg/dL POC Glucose (mg/dL) (75-99) mg/dL Calcium 8.3 L (8.4-10.2) mg/dL Troponin I 0.345 H* (0.000-0.034) ng/mL Urine Protein 1+ H (Negative) Urine Glucose (UA) 4+ H (Negative) Urine Ketones 1+ H (Negative) Urine Blood Small H (Negative) Urine Mucus Rare H (None) /hpf Influenza Type A RNA (Not Detectd) 08/04/21 08/04/21 08/04/21 Range/Units 00:15 01:44 02:04 WBC (3.8-10.6) k/uL Plt Count (150-450) k/uL Neutrophils # (1.3-7.7) k/uL PT (9.0-12.0) sec INR (<1.2) APTT (22.0-30.0) sec Sodium (137-145) mmol/L Potassium (3.5-5.1) mmol/L BUN (9-20) mg/dL Glucose (74-99) mg/dL POC Glucose (mg/dL) 253 H (75-99) mg/dL Calcium (8.4-10.2) mg/dL Troponin I 0.327 H* 0.292 H* (0.000-0.034) ng/mL Urine Protein (Negative) Urine Glucose (UA) (Negative) Urine Ketones (Negative) Urine Blood (Negative) Urine Mucus (None) /hpf Influenza Type A RNA (Not Detectd) 08/04/21 08/04/21 08/04/21 Range/Units 07:54 08:01 10:58 WBC (3.8-10.6) k/uL Plt Count (150-450) k/uL Neutrophils # (1.3-7.7) k/uL PT (9.0-12.0) sec INR (<1.2) APTT (22.0-30.0) sec Sodium (137-145) mmol/L Potassium (3.5-5.1) mmol/L BUN (9-20) mg/dL Glucose (74-99) mg/dL POC Glucose (mg/dL) 263 H 289 H (75-99) mg/dL Calcium (8.4-10.2) mg/dL Troponin I 0.224 H* (0.000-0.034) ng/mL Urine Protein (Negative) Urine Glucose (UA) (Negative) Urine Ketones (Negative) Urine Blood (Negative) Urine Mucus (None) /hpf Influenza Type A RNA (Not Detectd) H & H 08/03/21 Range/Units 21:24 Hgb 14.9 (13.0-17.5) gm/dL Hct 44.0 (39.0-53.0) % Coagulation 08/03/21 Range/Units 21:24 INR 1.2 H (<1.2) Result Diagrams: 08/03/21 21:24 08/03/21 22:40 Assessment and Plan Assessment: Assessment: Chronic low back pain Neurogenic claudication L2-3 retrolisthesis L4-5 lateral listhesis and spondylolisthesis L2-3 central canal stenosis L4-5 moderate to severe severe central canal stenosis Lumbar degenerative disc disease Lumbar facet arthropathy Lumbar osteophytic spurring Lumbar degenerative scoliosis History of recent falls with 2 falls over the past 2 weeks Atrial flutter Elevated troponin at presentation History of pacemaker placement Diabetes mellitus Hyperlipidemia Hypertension Obesity (1) Chronic low back pain Current Visit: Yes Status: Acute Code(s): M54.50 - LOW BACK PAIN, UNSPECIFIED; G89.29 - OTHER CHRONIC PAIN SNOMED Code(s): 305882495 (2) Lumbar stenosis with neurogenic claudication Current Visit: Yes Status: Acute Code(s): M48.062 - SPINAL STENOSIS, LUMBAR REGION WITH NEUROGENIC CLAUDICATION SNOMED Code(s): 61756158 (3) Spondylolisthesis, lumbar region Current Visit: Yes Status: Acute Code(s): M43.16 - SPONDYLOLISTHESIS, LUMBAR REGION SNOMED Code(s): 801117062202728 (4) Lumbar facet arthropathy Current Visit: Yes Status: Acute Code(s): M47.816 - SPONDYLOSIS W/O MYELOPATHY OR RADICULOPATHY, LUMBAR REGION SNOMED Code(s): 298322795 (5) Lumbar degenerative disc disease Current Visit: Yes Status: Acute Code(s): M51.36 - OTHER INTERVERTEBRAL DISC DEGENERATION, LUMBAR REGION SNOMED Code(s): 92562733 (6) Degenerative scoliosis Current Visit: Yes Status: Acute Code(s): M41.80 - OTHER FORMS OF SCOLIOSIS, SITE UNSPECIFIED SNOMED Code(s): 186405274 (7) Osteophyte Current Visit: Yes Status: Acute Code(s): M25.70 - OSTEOPHYTE, UNSPECIFIED JOINT SNOMED Code(s): 094883265129855 (8) Atrial flutter Current Visit: Yes Status: Acute Code(s): I48.92 - UNSPECIFIED ATRIAL FLUTTER SNOMED Code(s): 9058765 (9) History of recent fall Current Visit: Yes Status: Acute Code(s): Z91.81 - HISTORY OF FALLING SNOM ED Code(s): 068950686 (10) Elevated troponin Current Visit: Yes Status: Acute Code(s): R77.8 - OTHER SPECIFIED ABNORMALITIES OF PLASMA PROTEINS SNOMED Code(s): 251273607 (11) History of pacemaker Current Visit: Yes Status: Acute Code(s): Z95.0 - PRESENCE OF CARDIAC P ACEMAKER SNOMED Code(s): 086314009 (12) Diabetes mellitus Current Visit: Yes Status: Acute Code(s): E11.9 - TYPE 2 DIABETES MELLITUS WITHOUT COMPLICATIONS SNOMED Code(s): 11869770 (13) Hypertension Current Visit: Yes Status: Acute Code(s): I10 - ESSENTIAL (PRIMARY) HYPERTENSION SNOMED Code(s): 35487004 (14) Hyperlipidemia Current Visit: Yes Status: Acute Code(s): E78.5 - HYPERLIPIDEMIA, UNSPECIFIED SNOMED Code(s): 33164949 (15) Obesity (BMI 30-39.9) Current Visit: Yes Status: Acute Code(s): E66.9 - OBESITY, UNSPECIFIED SNOMED Code(s): 402010052 Plan: Plan: 1. After physical examination of the patient, further discussion with the patient, and reviewing imaging, we will currently plan to continue with conservative treatment and the patient should undergo further evaluation with other medical providers in regards to his recent unsteadiness and ambulation and falls. He does have significant degenerative changes at his lumbar spine. He does have some chronic low back pain which is unchanged. He does have some difficulty with neurogenic claudication and must stop and rest frequently. On physical examination he does not have any weakness of the bilateral upper extremities or lower extremities. He is able to perform good active range of motion of his upper and lower extremities without difficulty. He is not experiencing any upper extremity or lower extremity radiculopathy. He has not had any change in his dexterity or penmanship. He does not have any upper extremity hyperreflexia. He has negative Sue's sign of bilateral upper extremities. He does have has significant degenerative changes at his lumbar spine, but he does not appear his stenosis specifically correlates to his recent unsteady gait and falls. He does have a history of pacemaker placement. He states he has not felt dizziness or lightheadedness at time of the falls. He did have elevated troponins during further evaluation in the emergency department. Currently he is undergoing further evaluation with cardiology and medicine. We did discuss we'll plan to have him follow up in outpatient setting for further evaluation of his lumbar spine in terms of his chronic pain and neurogenic claudication. Patient states he would like to follow-up in this regard in the outpatient setting. We are not currently planning for any acute surgical intervention in regards to his lumbar spine. On physical examination his symptoms do not seem to be stemming specifically for his cervical spine. At this time, patient was cleared for discharge from an orthopedic spine standpoint. We maay be contacted during his admission for further evaluation if he experiences any changes in his symptoms. Plan of care was discussed in [place] with the patient and the patient's nurse. 2. Patient will continue with further treatment of and evaluation by multiple other medical providers including medicine and cardiology The patient is seen and examined at bedside. He is not expressing any specific radiculopathy at his upper or lower extremities. He is not having any pain at his spine. I do not think that his stenosis correlates with his recurrent falls. I do not have any further plans of pursuing spinal imaging or intervention at this point and he should continue with his medical and cardiology management. He may pursue physical therapy and ambulate and increase activity as he tolerates from a spine perspective as he gets cleared from medicine. He can follow-up with spine service on an as-needed basis
[2021-08-04 17:03] LABS: Glucose,Whole Blood 202 mg/dL (75-99)
--- NOTE | 2021-08-04 17:25 | CONS ---
CONSULTATION This is a 76-year-old gentleman with a history of chronic persistent atrial fibrillation, sick sinus syndrome, status post ablation, who now has a permanent pacemaker. He also has hypertension, diabetes, hyperlipidemia and CAD. He underwent stenting of mid LAD performed in March of this year. He presented to the hospital with complaints of generalized weakness and lack of energy and was found to have influenza A and also had mildly elevated troponins in the range of 0.3, but the pattern does not suggest any myocardial injury. He has multiple comorbid conditions and his complaint was that he was feeling very weak and he fell yesterday, mainly because of weakness and not any loss of consciousness. He is asymptomatic at the time of my evaluation other than generalized weakness. EKG revealed pretty much a paced rhythm with underlying atrial fibrillation. He has probable history of atrial flutter, status post ablation in the past. He is anticoagulated on a combination of Eliquis and Plavix with his recent stenting. The patient's troponin profile does not suggest any acute myocardial injury. He had an echo which revealed ejection fraction of about 40% to 45%. He is resting comfortably without any chest pain. PAST MEDICAL HISTORY: Remarkable for: 1. Atrial flutter, status post ablation. 2. Sick sinus syndrome with a permanent pacemaker. 3. Hypertension. 4. Hyperlipidemia. 5. Type 2 diabetes mellitus. 6. History of CAD with mid LAD stenting in March. 7. History of obesity. PHYSICAL EXAMINATION: On examination, blood pressure is 118/70, pulse rate is 70 per minute. JVD 1 cm. No carotid bruit. S1-S2 heard normally. There is a short systolic murmur at the base. Second heart sound is preserved. Lungs reveal bilateral scattered rhonchi. Abdomen is soft, nontender. Lower extremities reveal diminished pulses. Central nervous system is grossly within normal limits. IMPRESSION: 1. Abnormal troponins not related to myocardial injury. 2. Influenza A infection. 3. History of coronary artery disease with previous stenting of LAD. 4. Atrial flutter, status post ablation, with sick sinus syndrome and permanent pacemaker. RECOMMENDATIONS: I am recommending that we continue current medical regimen. No intervention is necessary with regard to his troponin issues. Cautious diuresis and resumption of medications including beta lindsay is advised. I will see the patient as needed from a cardiac standpoint. Will review the echocardiogram. It is possible he may have mild aortic stenosis or sclerosis. However, no intervention from a cardiac standpoint. MMODL / IJN: [id number] /
[2021-08-04 20:23] LABS: Glucose,Whole Blood 304 mg/dL (75-99)
[2021-08-04] MEDS: ACETAMINOPHEN TAB 325 MG TAB PO PRN (20:30)
[2021-08-05 06:11] LABS: Glucose,Whole Blood 286 mg/dL (75-99)
[2021-08-05] MEDS: INSULIN ASPART (NovoLOG) 100 UNIT/ML VIAL SQ SCH ×4 (06:29→20:57)
[2021-08-05] MEDS ORDERED: ASPIRIN 325 MG TAB PO SCH (09:00)
[2021-08-05] MEDS: carvediloL 6.25 MG TAB PO SCH ×2 (09:02→17:09)
[2021-08-05] MEDS: CLOPIDOGREL 75 MG TAB PO SCH (09:07)
[2021-08-05] MEDS: LOSARTAN 25 MG TAB PO SCH (09:07)
[2021-08-05] MEDS: ATORVASTATIN 80 MG TAB PO SCH (09:07)
[2021-08-05] MEDS: APIXABAN 5 MG TAB PO SCH ×2 (09:07→20:58)
[2021-08-05] MEDS: amLODIPine 10 MG TAB PO SCH (09:07)
[2021-08-05] MEDS: guaiFENesin 600 MG TABLET.ER PO SCH ×2 (09:07→20:58)
[2021-08-05] MEDS: NYSTATIN 100,000 UNIT/GM POWD 15 GM TOPICAL SCH ×3 (09:08→20:59)
[2021-08-05] MEDS: OSELTAMIVIR 75 MG CAP PO SCH ×2 (09:09→20:58)
[2021-08-05 09:53] LABS: Basophils % (A) 1 %; Eosinophils # (A) 0.1 k/uL (0-0.7); Eosinophils % (A) 1 %; HCT 43.8 % (39.0-53.0); Lymphocytes # (A) 1.4 k/uL (1.0-4.8); Lymphocytes % (A) 22 %; MCH 29.2 pg (25.0-35.0); MCHC 31.9 g/dL (31.0-37.0); MCV 91.4 fL (80.0-100.0); Mean Platelet Volume 7.7; Monocytes # (A) 0.5 k/uL (0-1.0); Monocytes % (A) 8 %; Neutrophils # (A) 4.2 k/uL (1.3-7.7); Neutrophils % (A) 65 %; Platelet Count 127 k/uL (150-450); RBC 4.79 m/uL (4.30-5.90); RDW 14.3 % (11.5-15.5); WBC 6.4 k/uL (3.8-10.6)
[2021-08-05 10:09] LABS: African American GFR (CKD) >90 (>60 ml/min/1.73 sqM); Anion Gap 10 mmol/L; Blood Urea Nitrogen 22 mg/dL (9-20); Calcium 7.9 mg/dL (8.4-10.2); Carbon Dioxide 22 mmol/L (22-30); Chloride 102 mmol/L (98-107); Glucose 312 mg/dL (74-99); Non-African American GFR(CKD) >90 (>60 ml/min/1.73 sqM); Potassium 3.7 mmol/L (3.5-5.1); Sodium 134 mmol/L (137-145)
[2021-08-05 11:36] LABS: Glucose,Whole Blood 283 mg/dL (75-99)
[2021-08-05] MEDS: SODIUM CHLORIDE 0.9% 1,000 ML IV SCH (12:41)
[2021-08-05 12:56] VITALS: BMI 40.6
--- NOTE | 2021-08-05 13:29 | P.PN ---
Subjective This is a 76-year-old male with a past medical history of atrial flutter status post ablation, sick sinus syndrome status post permanent pacemaker implantation, hypertension, type 2 diabetes, coronary artery disease status post PCI mid LAD 03/2021. He follows in the office with Dr. Lisa. We will consultation for elevated troponin. Patient presents emergency department with complaints of generalized weakness, frequent falling at home, he was having increased mechanical falls at home with tripping over things on the ground. No loss of consiousness of syncope. No chest pain or shortness of breath. Troponins were drawn and minimally elevated at 0.34, 0.29, 0.22. He was found to be positive for Influenza A No acute ischemia noted on EKG. Echocardiogram revealed an EF of 4045%, moderate LVH, mild aortic stenosis, mild to moderate mitral regurgitation, mild tricuspid regurgitation Patient seen and examined at bedside, no acute distress. He denies any chest pain or shortness of breath. Vital signs are stable. He is currently maintained on amlodipine 10 mg daily, Eliquis 5 mg twice a day, atorvastatin 80 mg daily, Plavix 75 mg daily, carvedilol 6.25 mg twice a day, losartan 25 mg daily. GENERAL: Well-appearing, well-nourished and in no acute distress. NECK: Supple without JVD or thyromegaly. LUNGS: Breath sounds clear to auscultation bilaterally. Respiration equal and unlabored. No wheezes, rales or rhonchi. HEART: Regular rate and rhythm. Systolic ejection murmur noted. S1 and S2 heard. EXTREMITIES: Normal range of motion, no edema. No clubbing or cyanosis. Peripheral pulses intact. ASSESSMENT Elevated troponin, not suggestive of acute coronary syndrome Influenza A Generalized weakness Atrial flutter status post ablation Sick sinus syndrome status post permanent pacemaker implantation Hypertension Type 2 diabetes Coronary artery disease status post PCI mid LAD 03/2021 Cardiomyopathy with EF 40-45%, likely non-ischemic PLAN No intervention at this time from a cardiac standpoint Continue home cardiac medications. We will follow the patient as needed. Please reconsult if needed Close follow up outpatient with Dr. Lisa Nurse Practitioner note has been reviewed, I agree with a documented findings and plan of care. Patient was seen and examined. Objective - Vital Signs Vital signs: Vital Signs Temp 98.5 F 08/05/21 12:00 Pulse 77 08/05/21 12:00 Resp 15 08/05/21 12:00 BP 129/60 08/05/21 12:00 Pulse Ox 97 08/05/21 12:00 FiO2 Intake & Output 08/04/21 08/05/21 08/05/21 18:59 06:59 18:59 Intake Total 420 240 720 Balance 420 240 720 Weight 117.027 kg 128.4 kg 128.4 kg Intake: Oral 420 240 720 Other: # Voids 1 # Bowel Movements 1 - Labs CBC & Chem 7: 08/05/21 09:35 08/05/21 09:35 Labs: Abnormal Lab Results - Last 24 Hours (Table) 08/04/21 08/04/21 08/05/21 Range/Units 17:00 20:07 06:04 Plt Count (150-450) k/uL Sodium (137-145) mmol/L BUN (9-20) mg/dL Glucose (74-99) mg/dL POC Glucose (mg/dL) 202 H 304 H 286 H (75-99) mg/dL Calcium (8.4-10.2) mg/dL 08/05/21 08/05/21 08/05/21 Range/Units 09:35 09:35 11:34 Plt Count 127 L (150-450) k/uL Sodium 134 L (137-145) mmol/L BUN 22 H (9-20) mg/dL Glucose 312 H (74-99) mg/dL POC Glucose (mg/dL) 283 H (75-99) mg/dL Calcium 7.9 L (8.4-10.2) mg/dL
[2021-08-05] MEDS ORDERED: BENZONATATE 100 MG CAP PO PRN (14:32)
[2021-08-05 16:33] LABS: Glucose,Whole Blood 272 mg/dL (75-99)
--- NOTE | 2021-08-05 16:42 | P.PN ---
Subjective Progress Note Date: 08/05/21 Chief Complaint: Frequent falls at home 76-year-old male with atrial flutter status post pacemaker on Ellquis Patient comes in due to frequent falling at home over the past few days he denies any associated symptoms of presyncope denies any dizziness lightheadedness shortness of breath palpitations chest pain. He reports that he uses a walker [place] home however without tripping or any accidents he keeps falling usually he falls on his back butt denies any head injury denies any loss of consciousness, he lives with his he started growing concerned and decided to come in for evaluation. He denies any new focal neuro deficits he reports some discomfort and pain in his right flank which she thinks is related to one this is falls when he fell on his side he denies having had any issues like this before. Denies any changes in his vision or hearing. Denies any rece nt changes in his medications Patient has history of atrial flutter status post pacemaker is on blood thinners Workup in the ED showed elevated tropes, mild hypokalemia and hyponatremia CT imaging of the lumbar spine showed spinal stenosis EKG is paced rhythm showed right bundle branch block, patient has elevated troponin unknown baseline Head CT showed no acute findings. He tested positive for influenza A he otherwise denies any fevers or chills denies any coughing Interval history: Patient was examined at the bedside. He denies any chest pain or shortness of breath. He is complaining of cough. Today when patient was taken a bath RN noticed take stock to his back take was removed and sent to the lab for evaluation. Otherwise no acute changes overnight Physical examination: General: non toxic, no distress, appears at stated age. Obese Derm: warm, dry Head: atraumatic, normocephalic, symmetric Eyes: EOMI, no lid lag, anicteric sclera Mouth: no lip lesion, mucus membranes moist Cardiovascular: S1S2 reg, no murmur, positive posterior tibial pulse bilateral, Lungs: CTA bilateral, no rhonchi, no rales , no accessory muscle use Abdominal: soft, nontender to palpation, no guarding, no appreciable organomegaly Ext: no gross muscle atrophy, no edema, no contractures Neuro: CN II-XI grossly intact, no focal neuro deficits Psych: Alert, oriented, appropriate affect Assessment and plan: #Influenza a infection -Contact and droplet precautions -Resume Tamiflu #Generalized weakness and frequent falls at home PT evaluation Fall precautions CT imaging of the spine showed spinal stenosis CT imaging of the brain showed no acute bleeding or findings Orthopedic review the computed tomography scan and recommended conservative management #Hypokalemia secondary to diuretics -Holding diuretics -Replaced #Mild Hyponatremia -Most likely secondary to Dyazide -Continue holding Dyazide on discharge -Improved with IV fluids #Elevated troponin -Patient denies any chest pain -No acute ischemia noted on EKG. Echocardiogram revealed an EF of 4045%, moderate LVH, mild aortic stenosis, mild to moderate mitral regurgitation, mild tricuspid regurgitation -Cardiology cleared the patient for discharge -Continue cardiac monitoring #Sick sinus syndrome status post permanent pacemaker implantation Atrial flutter status post ablation -Resume Eliquis #Morbid Obesity BMI is 40 #Type 2 diabetes mellitus -Check A1c -Resume Amaryl and sliding scale insulin -Diabetic diet #Hypertension -Controlled -Resume Norvasc and losartan Full code DVT prophylaxis patient Eliquis Objective - Vital Signs Vital signs: Vital Signs Temp 98.6 F 08/05/21 16:00 Pulse 68 08/05/21 16:00 Resp 17 08/05/21 16:00 BP 126/64 08/05/21 16:00 Pulse Ox 97 08/05/21 12:00 FiO2 Intake & Output 08/04/21 08/05/21 08/05/21 18:59 06:59 18:59 Intake Total 675 925 5026 Balance 232 531 2122 Weight 117.027 kg 128.4 kg 128.4 kg Intake: Intake, IV Titration 320 Amount Sodium Chloride 0.9% 1, 320 000 ml @ 75 mls/hr IV . [id number] [facility] Rx#:[id number] Oral 420 240 720 Other: # Voids 1 # Bowel Movements 1 - Labs CBC & Chem 7: 08/05/21 09:35 08/05/21 09:35 Labs: Abnormal Lab Results - Last 24 Hours (Table) 08/04/21 08/04/21 08/05/21 Range/Units 17:00 20:07 06:04 Plt Count (150-450) k/uL Sodium (137-145) mmol/L BUN (9-20) mg/dL Glucose (74-99) mg/dL POC Glucose (mg/dL) 202 H 304 H 286 H (75-99) mg/dL Calcium (8.4-10.2) mg/dL 08/05/21 08/05/21 08/05/21 Range/Units 09:35 09:35 11:34 Plt Count 127 L (150-450) k/uL Sodium 134 L (137-145) mmol/L BUN 22 H (9-20) mg/dL Glucose 312 H (74-99) mg/dL POC Glucose (mg/dL) 283 H (75-99) mg/dL Calcium 7.9 L (8.4-10.2) mg/dL
[2021-08-05] MEDS: ACETAMINOPHEN TAB 325 MG TAB PO PRN (17:08)
[2021-08-05] MEDS: GLIMEPIRIDE 2 MG TAB PO SCH (17:13)
[2021-08-05 19:50] LABS: Chol/HDL Ratio 4.08 Ratio; LDL Cholesterol,Calculated 55.5 mg/dL (0.0-131.0)
[2021-08-05 20:38] LABS: Glucose,Whole Blood 236 mg/dL (75-99)
[2021-08-05] MEDS ORDERED: BENZOCAINE/MENTHOL LOZENG 1 EACH LOZENGE MUCOUS MEM PRN (23:31)
[2021-08-06 06:32] LABS: Glucose,Whole Blood 223 mg/dL (75-99)
[2021-08-06] MEDS: GLIMEPIRIDE 2 MG TAB PO SCH (06:47)
[2021-08-06] MEDS: INSULIN ASPART (NovoLOG) 100 UNIT/ML VIAL SQ SCH (06:47)
[2021-08-06] MEDS: carvediloL 6.25 MG TAB PO SCH (06:47)
[2021-08-06] MEDS: ALBUTEROL NEBULIZED 2.5 MG/3 ML INHALATION PRN ×2 (07:16→12:15)
[2021-08-06 09:38] LABS: Basophils % (A) 0 %; Eosinophils # (A) 0.1 k/uL (0-0.7); Eosinophils % (A) 2 %; HCT 41.2 % (39.0-53.0); HGB 13.5 gm/dL (13.0-17.5); Lymphocytes # (A) 1.7 k/uL (1.0-4.8); Lymphocytes % (A) 25 %; MCH 29.6 pg (25.0-35.0); MCHC 32.8 g/dL (31.0-37.0); MCV 90.4 fL (80.0-100.0); Mean Platelet Volume 7.8; Monocytes # (A) 0.6 k/uL (0-1.0); Monocytes % (A) 9 %; Neutrophils # (A) 4.1 k/uL (1.3-7.7); Neutrophils % (A) 61 %; Platelet Count 142 k/uL (150-450); RBC 4.56 m/uL (4.30-5.90); RDW 14.4 % (11.5-15.5); WBC 6.7 k/uL (3.8-10.6)
[2021-08-06 10:02] LABS: African American GFR (CKD) >90 (>60 ml/min/1.73 sqM); Anion Gap 10 mmol/L; Blood Urea Nitrogen 16 mg/dL (9-20); Calcium 7.8 mg/dL (8.4-10.2); Carbon Dioxide 23 mmol/L (22-30); Chloride 103 mmol/L (98-107); Glucose 261 mg/dL (74-99); Non-African American GFR(CKD) >90 (>60 ml/min/1.73 sqM); Sodium 136 mmol/L (137-145)
[2021-08-06 10:16] LABS: Potassium 3.9 mmol/L (3.5-5.1)
[2021-08-06] MEDS: guaiFENesin 600 MG TABLET.ER PO SCH (10:37)
[2021-08-06] MEDS: CLOPIDOGREL 75 MG TAB PO SCH (10:37)
[2021-08-06] MEDS: LOSARTAN 25 MG TAB PO SCH (10:37)
[2021-08-06] MEDS: APIXABAN 5 MG TAB PO SCH (10:37)
[2021-08-06] MEDS: amLODIPine 10 MG TAB PO SCH (10:37)
[2021-08-06] MEDS: ATORVASTATIN 80 MG TAB PO SCH (10:37)
[2021-08-06] MEDS: OSELTAMIVIR 75 MG CAP PO SCH (10:38)
[2021-08-06] MEDS: NYSTATIN 100,000 UNIT/GM POWD 15 GM TOPICAL SCH (10:38)
[2021-08-06] MEDS: ACETAMINOPHEN TAB 325 MG TAB PO PRN (10:40)
[2021-08-06 11:41] VITALS: BP 137/72; TEMP 97
[2021-08-06 11:56] LABS: Glucose,Whole Blood 213 mg/dL (75-99)
[2021-08-06 12:17] VITALS: PULSE 80
[2021-08-06 12:25] VITALS: RESP 16
--- NOTE | 2021-08-06 12:57 | P.DS ---
Providers Date of admission: 08/03/21 23:09 Expected date of discharge: 08/06/21 Attending physician: Vahe Jackson MD Consults: 08/04/21 00:38 Consult Physician Urgent Consulting Provider: Juan Lee Consult Reason/Comments: Non-STEMI Do you want consulting provider notified?: Yes, Notify in am 08/04/21 06:53 Consult Physician Routine Consulting Provider: Erica Leyva Consult Reason/Comments: spinal stenosis , frequent falls Do you want consulting provider notified?: Yes 08/05/21 14:32 Consult Physician Routine Consulting Provider: Juan Lee Consult Reason/Comments: Multiple falls Do you want consulting provider notified?: Yes Primary care physician: Claudio Ortiz MD Hospital Course: Chief Complaint: Frequent falls at home 76-year-old male with atrial flutter status post pacemaker on Ellquis Patient comes in due to frequent falling at home over the past few days he denies any associated symptoms of presyncope denies any dizziness lightheadedness shortness of breath palpitations chest pain. He reports that he uses a walker [place] home however without tripping or any accidents he keeps falling usually he falls on his back butt denies any head injury denies any loss of consciousness, he lives with his he started growing concerned and decided to come in for evaluation. He denies any new focal neuro deficits he reports some discomfort and pain in his right flank which she thinks is related to one this is falls when he fell on his side he denies having had any issues like this before. Denies any changes in his vision or hearing. Denies any recent changes in his medications Patient has history of atrial flutter status post pacemaker is on blood thinners Workup in the ED showed elevated tropes, mild hypokalemia and hyponatremia CT imaging of the lumbar spine showed spinal stenosis EKG is paced rhythm showed right bundle branch block, patient has elevated troponin unknown baseline Head CT showed no acute findings. He tested positive for influenza A he otherwise denies any fevers or chills denies any coughing Physical examination: General: non toxic, no distress, appears at stated age. Obese Derm: warm, dry Head: atraumatic, normocephalic, symmetric Eyes: EOMI, no lid lag, anicteric sclera Mouth: no lip lesion, mucus membranes moist Cardiovascular: S1S2 reg, no murmur, positive posterior tibial pulse bilateral, Lungs: CTA bilateral, no rhonchi, no rales , no accessory muscle use Abdominal: soft, nontender to palpation, no guarding, no appreciable organomegaly Ext: no gross muscle atrophy, no edema, no contractures Neuro: CN II-XI grossly intact, no focal neuro deficits Psych: Alert, oriented, appropriate affect Assessment and plan: #Influenza a infection -Contact and droplet precautions -Resume Tamiflu on discharge #Generalized weakness and frequent falls at home PT cleared the patient to go home Fall precautions CT imaging of the spine showed spinal stenosis CT imaging of the brain showed no acute bleeding or findings Orthopedic review the computed tomography scan and recommended conservative management #Hypokalemia secondary to diuretics -Holding diuretics -Replaced #Mild Hyponatremia -Most likely secondary to Dyazide -Continue holding Dyazide on discharge -Improved with IV fluids #Elevated troponin -Patient denies any chest pain -No acute ischemia noted on EKG. Echocardiogram revealed an EF of 4045%, moderate LVH, mild aortic stenosis, mild to moderate mitral regurgitation, mild tricuspid regurgitation -Cardiology cleared the patient for discharge -Continue cardiac monitoring -Sandwich Counter Attendant changed Coreg to metoprolol #Sick sinus syndrome status post permanent pacemaker implantation Atrial flutter status post ablation -Resume Eliquis and metoprolol #Morbid Obesity BMI is 40 #Type 2 diabetes mellitus with uncontrolled hyperglycemia -A1c is 9.4 -Increase Amaryl to 4 mg daily -Follow up with primary care physician for tight glycemic control -Diabetic diet #Hypertension -Controlled -Resume Norvasc and losartan Patient Condition at Discharge: Stable Plan - Discharge Summary Discharge Rx Participant: No New Discharge Prescriptions: New Nystatin 100,000 Unit/gm Powd [Mycostatin Powder] 1 applic TOPICAL TID 7 Days each Glimepiride [Amaryl] 2 mg PO W/BRKFST tab Oseltamivir [Tamiflu] 75 mg PO Q12HR 3 Days cap Benzonatate [Tessalon Perles] 100 mg PO TID 7 Days #21 cap Metoprolol Tartrate [Lopressor] 25 mg PO DAILY@2100 60 Days #60 tab Metoprolol Tartrate [Lopressor] 50 mg PO DAILY 60 Days #60 tab Nystatin 100,000 Unit/gm Powd [Mycostatin Powder] 1 applic TOPICAL BID 7 Days #15 gm Continue amLODIPine BESYLATE 10 mg PO DAILY Apixaban [Eliquis] 5 mg PO BID Clopidogrel [Plavix] 75 mg PO DAILY #90 tablet Losartan [Cozaar] 25 mg PO DAILY Acetaminophen [Tylenol Arthritis] 650 mg PO Q6H PRN PRN Reason: Pain Rosuvastatin Calcium [Crestor] 40 mg PO DAILY Cholecalciferol [Vitamin D3 (125 Mcg = 5000 Iu)] 125 mcg PO DAILY Discontinued Triamterene-Hctz 37.5-25Mg [Maxzide 37.5-25] 1 tab PO DAILY #90 tablet Carvedilol [Coreg] 3.125 mg PO BID-W/MEALS Glimepiride [Amaryl] 2 mg PO AC-BRKFST Discharge Medication List amLODIPine BESYLATE 10 mg PO DAILY 12/18/19 [History] Acetaminophen [Tylenol Arthritis] 650 mg PO Q6H PRN 03/24/21 [History] Apixaban [Eliquis] 5 mg PO BID 03/24/21 [History] Clopidogrel [Plavix] 75 mg PO DAILY #90 tablet 03/30/21 [Rx] Cholecalciferol [Vitamin D3 (125 Mcg = 5000 Iu)] 125 mcg PO DAILY 08/03/21 [History] Losartan [Cozaar] 25 mg PO DAILY 08/03/21 [History] Rosuvastatin Calcium [Crestor] 40 mg PO DAILY 08/03/21 [History] Benzonatate [Tessalon Perles] 100 mg PO TID 7 Days #21 cap 08/06/21 [Rx] Glimepiride [Amaryl] 2 mg PO W/BRKFST tab 08/06/21 [Rx] Metoprolol Tartrate [Lopressor] 25 mg PO DAILY@2100 60 Days #60 tab 08/06/21 [Rx] Metoprolol Tartrate [Lopressor] 50 mg PO DAILY 60 Days #60 tab 08/06/21 [Rx] Nystatin 100,000 Unit/gm Powd [Mycostatin Powder] 1 applic TOPICAL BID 7 Days #15 gm 08/06/21 [Rx] Nystatin 100,000 Unit/gm Powd [Mycostatin Powder] 1 applic TOPICAL TID 7 Days each 08/06/21 [Rx] Oseltamivir [Tamiflu] 75 mg PO Q12HR 3 Days cap 08/06/21 [Rx] Follow up Appointment(s)/Referral(s): Petros Lisa MD [STAFF PHYSICIAN] - 08/19/21 9:45 am Joao Maynard PAC [PHYSICIAN [facility] [place]] - 3 Weeks (Patient may follow-up with Joao Maynard PA-C or Dr. Jose L Leyva at [facility] in 2-3 weeks following discharge. ) Claudio Ortiz MD [Primary Care Provider] - 08/10/21 3:00 pm Patient Instructions/Handouts: Influenza (DC) Activity/Diet/Wound Care/Special Instructions: Cardiology Instructions: Changed your medications to help control your heart rate. Please discontinue carvedilol Please take metoprolol 50mg in the morning and 25mg at night Follow up with Dr. Lisa in 1-2 weeks. Discharge Disposition: HOME SELF-CARE
--- NOTE | 2021-08-06 13:32 | P.PN ---
Subjective This is a 76-year-old male with a past medical history of atrial flutter status post ablation, sick sinus syndrome status post permanent pacemaker implantation, hypertension, type 2 diabetes, coronary artery disease status post PCI mid LAD 03/2021. He follows in the office with Dr. Lisa. We will consultation for elevated troponin. Patient presents emergency department with complaints of generalized weakness, frequent falling at home, he was having increased mechanical falls at home with tripping over things on the ground. No loss of consiousness of syncope. No chest pain or shortness of breath. Troponins were drawn and minimally elevated at 0.34, 0.29, 0.22. He was found to be positive for Influenza A No acute ischemia noted on EKG. Echocardiogram revealed an EF of 4045%, moderate LVH, mild aortic stenosis, mild to moderate mitral regurgitation, mild tricuspid regurgitation Patient seen and examined at bedside, no acute distress. He denies any chest pain or shortness of breath. Vital signs are stable. Device interrogated patient with episodes of paroxysmal atrial fibrillation with RVR and paroxysmal atrial flutter. He is currently maintained on amlodipine 10 mg daily, Eliquis 5 mg twice a day, atorvastatin 80 mg daily, Plavix 75 mg daily, carvedilol 6.25 mg twice a day, losartan 25 mg daily. GENERAL: Well-appearing, well-nourished and in no acute distress. NECK: Supple without JVD or thyromegaly. LUNGS: Breath sounds clear to auscultation bilaterally. Respiration equal and unlabored. No wheezes, rales or rhonchi. HEART: Regular rate and rhythm. Systolic ejection murmur noted. S1 and S2 heard. EXTREMITIES: Normal range of motion, no edema. No clubbing or cyanosis. Peripheral pulses intact. 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 Patient is stable from a cardiology perspective to be discharged. Close follow up outpatient with Dr. Lisa Nurse Practitioner note has been reviewed, I agree with a documented findings and plan of care. Patient was seen and examined. Objective - Vital Signs Vital signs: Vital Signs Temp 97.0 F L 08/06/21 08:00 Pulse 80 08/06/21 12:25 Resp 16 08/06/21 12:25 BP 137/72 08/06/21 08:00 Pulse Ox 96 08/06/21 08:00 FiO2 Intake & Output 08/05/21 08/06/21 08/06/21 18:59 06:59 18:59 Intake Total 1220 Output Total 350 Balance 1220 -350 Weight 128.4 kg Intake: Intake, IV Titration 320 Amount Sodium Chloride 0.9% 1, 320 000 ml @ 75 mls/hr IV . [id number] Rx#:[id number] Oral 900 Output: Urine 350 Other: Voiding Method Toilet Toilet # Voids 1 3 - Labs CBC & Chem 7: 08/06/21 09:08 08/06/21 09:08 Labs: Abnormal Lab Results - Last 24 Hours (Table) 08/05/21 08/05/21 08/05/21 Range/Units 09:35 09:35 16:31 Plt Count (150-450) k/uL Sodium (137-145) mmol/L Creatinine (0.66-1.25) mg/dL Glucose (74-99) mg/dL POC Glucose (mg/dL) 272 H (75-99) mg/dL Hemoglobin A1c 9.4 H (0.0-6.0) % Calcium (8.4-10.2) mg/dL Triglycerides 202.00 H (0.00-149.00) mg/dL VLDL Cholesterol, Calc 40.40 H (5.00-40.00) mg/dL HDL Cholesterol 31.10 L (40.00-60.00) mg/dL 08/05/21 08/06/21 08/06/21 Range/Units 20:35 06:25 09:08 Plt Count 142 L (150-450) k/uL Sodium (137-145) mmol/L Creatinine (0.66-1.25) mg/dL Glucose (74-99) mg/dL POC Glucose (mg/dL) 236 H 223 H (75-99) mg/dL Hemoglobin A1c (0.0-6.0) % Calcium (8.4-10.2) mg/dL Triglycerides (0.00-149.00) mg/dL VLDL Cholesterol, Calc (5.00-40.00) mg/dL HDL Cholesterol (40.00-60.00) mg/dL 08/06/21 08/06/21 Range/Units 09:08 11:51 Plt Count (150-450) k/uL Sodium 136 L (137-145) mmol/L Creatinine 0.63 L (0.66-1.25) mg/dL Glucose 261 H (74-99) mg/dL POC Glucose (mg/dL) 213 H (75-99) mg/dL Hemoglobin A1c (0.0-6.0) % Calcium 7.8 L (8.4-10.2) mg/dL Triglycerides (0.00-149.00) mg/dL VLDL Cholesterol, Calc (5.00-40.00) mg/dL HDL Cholesterol (40.00-60.00) mg/dL
[2021-08-06] MEDS ORDERED: METOPROLOL TARTRATE 25 MG TAB PO SCH (21:00)
[2021-08-07] MEDS ORDERED: METOPROLOL TARTRATE 50 MG TAB PO SCH (09:00)
== END 2021-08-06 12:29 | disposition home or self-care (01) ==
LOC: EC 20:33 → 3SCARD 23:09 → INTOOBSV 23:09 → 3SCARD 08-04 13:54 → UNDODISIN 08-06 12:29
PROVIDERS: ADMIT Internal Medicine; ATTEND Internal Medicine
DX: J10.1 Influenza due to other identified influenza virus with other respiratory manifestations (principal); E87.1 Hypo-osmolality and hyponatremia; E78.5 Hyperlipidemia, unspecified; E11.65 Type 2 diabetes mellitus with hyperglycemia; R79.89 Other specified abnormal findings of blood chemistry; I11.9 Hypertensive heart disease without heart failure; I43 Cardiomyopathy in diseases classified elsewhere; E87.6 Hypokalemia; T50.2X5A Adverse effect of carbonic-anhydrase inhibitors, benzothiadiazides and other diuretics, initial encounter; I48.19 Other persistent atrial fibrillation; I45.2 Bifascicular block; I48.3 Typical atrial flutter; I49.5 Sick sinus syndrome; I08.3 Combined rheumatic disorders of mitral, aortic and tricuspid valves; B36.9 Superficial mycosis, unspecified; S30.0XXA Contusion of lower back and pelvis, initial encounter; R29.6 Repeated falls; I25.10 Atherosclerotic heart disease of native coronary artery without angina pectoris; R53.1 Weakness; G89.29 Other chronic pain; M25.78 Osteophyte, vertebrae; M48.062 Spinal stenosis, lumbar region with neurogenic claudication; M41.86 Other forms of scoliosis, lumbar region; M43.16 Spondylolisthesis, lumbar region; M47.816 Spondylosis without myelopathy or radiculopathy, lumbar region; M51.36 Other intervertebral disc degeneration, lumbar region; E66.01 Morbid (severe) obesity due to excess calories; Z68.41 Body mass index [BMI] 40.0-44.9, adult; Z20.822 Contact with and (suspected) exposure to COVID-19; Z79.01 Long term (current) use of anticoagulants; Z79.02 Long term (current) use of antithrombotics/antiplatelets; Z79.84 Long term (current) use of oral hypoglycemic drugs; Z79.899 Other long term (current) drug therapy; Z91.011 Allergy to milk products; Z96.653 Presence of artificial knee joint, bilateral; Z95.0 Presence of cardiac pacemaker; Z91.81 History of falling; Z87.891 Personal history of nicotine dependence; Z87.442 Personal history of urinary calculi; Z85.72 Personal history of non-Hodgkin lymphomas; Z95.5 Presence of coronary angioplasty implant and graft; Z98.890 Other specified postprocedural states; W01.0XXA Fall on same level from slipping, tripping and stumbling without subsequent striking against object, initial encounter; Y92.009 Unspecified place in unspecified non-institutional (private) residence as the place of occurrence of the external cause
CPT/HCPCS: 96361 ×2; 96360; 99291 ×2; 36415; 94640 ×2; 94760; 93005 ×2; 97162; 83880; 80061; 80053; 80048 ×2; 83735; 84443; 84484 ×2; 85025 ×3; 85610; 85730; 81001; 87502; 83036; 87635; 72100; 71045; 72125; 72131; 70450; G0378 ×4; C8929; Q9950; 93306

== ENCOUNTER 2021-10-12 17:17 | Inpatient (IN) | payer MEDICARE ==
--- NOTE | 2021-10-12 18:03 | ED ---
Fall HPI - General Chief Complaint: Fall Stated Complaint: Altered Time Seen by Provider: 10/12/21 17:33 Source: patient, EMS, RN notes reviewed Mode of arrival: EMS - History of Present Illness Initial Comments: This is a 76-year-old male who presents to the emergency department for a fall injury. His states that over the last few months he has had problems with being unsteady on his feet despite using a cane and has had frequent falls. Earlier today, he was having intermittent episodes of shaking spells. He was fully conscious during these episodes, which lasted for approximately 30 seconds. He did have one of these episodes in the emergency department. Denies any personal or family history of seizures. Earlier today, he was walking inside, when he proceeded to fall. He fell backwards from standing. His does not believe that he hit his head, however it is not fully clear and he is on blood thinners. She was unable to get him up on her own, and subsequently called EMS. He was altered after falling and seemed confused. Denies any loss of consciousness. This is abnormal for him and has never happened before. His is requesting a possible neurology consult due to his change in mentation over the last few months. Overall believes that he is getting worse. He is currently complaining of back pain, however this is a chronic issue for him. It is unclear if he may have reinjured this during the fall. Denies any fevers, chills, sore throat, cough, dyspnea, chest pain, palpitations, abdominal pain, nausea, vomiting, diarrhea, or headaches. MD Complaint: fall Fall From: standing Fall Witnessed: yes, by family Place Fall Occurred: home Loss of Consciousness: none Prolonged Down Time?: yes - Related Data Home Medications Medication Instructions Recorded Confirmed amLODIPine BESYLATE 10 mg PO DAILY 12/18/19 10/12/21 Apixaban [Eliquis] 5 mg PO BID 03/24/21 10/12/21 Cholecalciferol [Vitamin D3 (125 125 mcg PO DAILY 08/03/21 10/12/21 Mcg = 5000 Iu)] Losartan [Cozaar] 25 mg PO DAILY 08/03/21 10/12/21 Rosuvastatin Calcium [Crestor] 40 mg PO DAILY 08/03/21 10/12/21 Cyanocobalamin (Vitamin B-12) 1,000 mcg PO DAILY 10/12/21 10/12/21 [Vitamin B-12] Metoprolol Tartrate [Lopressor] 25 mg PO HS 10/12/21 10/12/21 Previous Rx's Medication Instructions Recorded Clopidogrel [Plavix] 75 mg PO DAILY #90 tablet 03/30/21 Glimepiride [Amaryl] 4 mg PO DAILY 30 Days #30 tab 08/06/21 Metoprolol Tartrate [Lopressor] 50 mg PO DAILY 60 Days #60 tab 08/06/21 Allergies Allergy/AdvReac Type Severity Reaction Status Date / Time Milk Containing Products Allergy Unknown Verified 10/12/21 20:05 [Dairy] Review of Systems ROS Statement: Those systems with pertinent positive or pertinent negative responses have been documented in the HPI. ROS Other: All systems not noted in ROS Statement are negative. Past Medical History Past Medical History: Atrial Flutter, Cancer, Diabetes Mellitus, Hyperlipidemia, Hypertension, Osteoarthritis (OA), Skin Disorder Additional Past Medical History / Comment(s): , eczema, arthritis; FOUND TO HAVE ABD MASS, NEAR AORTA AND VENA CAVA -. 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 CARDIAC ABLATION Past Anesthesia/Blood Transfusion Reactions: Previous Problems w/ Anesthesia, Postoperative Nausea & Vomiting (PONV) Type of Cardiac Device: Permanent Pacemaker Device Placement Date:: 2019 POSSIBLE DATE Past Psychological History: No Psychological Hx Reported Smoking Status: Former smoker Past Alcohol Use History: Rare Past Drug Use History: None Reported - Past Family History Sister(s) Family Medical History: Cancer General Exam General appearance: alert, in no apparent distress Head exam: Present: atraumatic, normocephalic, normal inspection Respiratory exam: Present: normal lung sounds bilaterally. Absent: respiratory distress, wheezes, rales, rhonchi, stridor Cardiovascular Exam: Present: regular rate, normal rhythm, normal heart sounds. Absent: systolic murmur, diastolic murmur, rubs, gallop, clicks GI/Abdominal exam: Present: soft, normal bowel sounds. Absent: distended, tenderness, guarding, rebound, rigid Extremities exam: Present: calf tenderness (Left), other (Erythema, swelling, and increased heat to the left lower extremity with 2+ pitting edema. Scattered abrasions and areas of eschar formation.) Back exam: Present: normal inspection Neurological exam: Present: alert, oriented X3, CN II-XII intact Psychiatric exam: Present: normal affect, normal mood Skin exam: Present: warm, dry, intact, normal color. Absent: rash Course Vital Signs 10/12/21 10/12/21 10/12/21 17:28 17:31 22:38 Pulse Rate 83 78 82 Respiratory 16 17 18 Rate Blood Pressure 150/75 166/68 110/64 O2 Sat by Pulse 96 96 94 L Oximetry Medical Decision Making - Medical Decision Making This is a 76-year-old male who presents to the emergency department for a fall. Lab work reveals leukocytosis with left shift. He does have an elevated troponin, however this is a chronic finding for the patient and is lower than usual. He is also currently taking Eliquis. Patient currently denies any chest pain or shortness of breath. X-ray of the chest and lumbar spine as well as computed tomography scan of the brain were obtained, all revealing no acute irregularities. Upon further examination of the patient, he does have increased swelling and heat to the left lower extremity. There are also multiple areas of eschar formation. He likely has a lower extremity cellulitis contributing to an altered mental status. XR of the lower extremities ordered, results pending at the time of admission. Patient currently unsure what his address is or which hospital he is in. Given that he has an altered mental status secondary to infection, will plan to admit the patient for IV antibiotics. He was started on Ceftriaxone with blood cultures obtained prior. However, it is noted that the patient has had some changes in mentation prior to the recent fall and infection. Consider a neurology consultation for further evaluation of patient's change in mentation and memory loss. This case was discussed in detail with the attending ED physician. Presentation, findings, and treatment plan discussed in detail as well. - Lab Data Result diagrams: 10/12/21 19:28 10/12/21 19:28 Lab Results 10/12/21 10/12/21 10/12/21 Range/Units 19:28 19:28 19:28 WBC 19.7 H (3.8-10.6) k/uL RBC 5.36 (4.30-5.90) m/uL Hgb 15.9 (13.0-17.5) gm/dL Hct 47.6 (39.0-53.0) % MCV 88.9 (80.0-100.0) fL MCH 29.7 (25.0-35.0) pg MCHC 33.4 (31.0-37.0) g/dL RDW 14.2 (11.5-15.5) % Plt Count 135 L (150-450) k/uL MPV 7.4 Neutrophils % 90 % Lymphocytes % 3 % Monocytes % 5 % Eosinophils % 1 % Basophils % 0 % Neutrophils # 17.8 H (1.3-7.7) k/uL Lymphocytes # 0.7 L (1.0-4.8) k/uL Monocytes # 0.9 (0-1.0) k/uL Eosinophils # 0.2 (0-0.7) k/uL Basophils # 0.1 (0-0.2) k/uL Sodium 134 L (137-145) mmol/L Potassium 3.4 L (3.5-5.1) mmol/L Chloride 101 (98-107) mmol/L Carbon Dioxide 18 L (22-30) mmol/L Anion Gap 15 mmol/L BUN 17 (9-20) mg/dL Creatinine 0.77 (0.66-1.25) mg/dL Est GFR (CKD-EPI)AfAm >90 (>60 ml/min/1.73 sqM) Est GFR (CKD-EPI)NonAf 90 (>60 ml/min/1.73 sqM) Glucose 212 H (74-99) mg/dL Calcium 8.9 (8.4-10.2) mg/dL Total Bilirubin 1.2 (0.2-1.3) mg/dL AST 35 (17-59) U/L ALT 22 (4-49) U/L Alkaline Phosphatase 75 (38-126) U/L Ammonia (<30) umol/L Creatine Kinase 112 (55-170) U/L Troponin I (0.000-0.034) ng/mL NT-Pro-B Natriuret Pep pg/mL Total Protein 7.2 (6.3-8.2) g/dL Albumin 4.2 (3.5-5.0) g/dL TSH 1.020 (0.465-4.680) mIU/L Urine Color Light Yellow Urine Appearance Clear (Clear) Urine pH 5.0 (5.0-8.0) Ur Specific [place] 1.016 (1.001-1.035) Urine Protein Negative (Negative) Urine Glucose (UA) 3+ H (Negative) Urine Ketones 1+ H (Negative) Urine Blood Negative (Negative) Urine Nitrite Negative (Negative) Urine Bilirubin Negative (Negative) Urine Urobilinogen <2.0 (<2.0) mg/dL Ur Leukocyte Esterase Negative (Negative) 10/12/21 10/12/21 10/12/21 Range/Units 19:28 19:28 22:49 WBC (3.8-10.6) k/uL RBC (4.30-5.90) m/uL Hgb (13.0-17.5) gm/dL Hct (39.0-53.0) % MCV (80.0-100.0) fL MCH (25.0-35.0) pg MCHC (31.0-37.0) g/dL RDW (11.5-15.5) % Plt Count (150-450) k/uL MPV Neutrophils % % Lymphocytes % % Monocytes % % Eosinophils % % Basophils % % Neutrophils # (1.3-7.7) k/uL Lymphocytes # (1.0-4.8) k/uL Monocytes # (0-1.0) k/uL Eosinophils # (0-0.7) k/uL Basophils # (0-0.2) k/uL Sodium (137-145) mmol/L Potassium (3.5-5.1) mmol/L Chloride (98-107) mmol/L Carbon Dioxide (22-30) mmol/L Anion Gap mmol/L BUN (9-20) mg/dL Creatinine (0.66-1.25) mg/dL Est GFR (CKD-EPI)AfAm (>60 ml/min/1.73 sqM) Est GFR (CKD-EPI)NonAf (>60 ml/min/1.73 sqM) Glucose (74-99) mg/dL Calcium (8.4-10.2) mg/dL Total Bilirubin (0.2-1.3) mg/dL AST (17-59) U/L ALT (4-49) U/L Alkaline Phosphatase (38-126) U/L Ammonia <9 (<30) umol/L Creatine Kinase (55-170) U/L Troponin I 0.053 H* (0.000-0.034) ng/mL NT-Pro-B Natriuret Pep 2290 pg/mL Total Protein (6.3-8.2) g/dL Albumin (3.5-5.0) g/dL TSH (0.465-4.680) mIU/L Urine Color Urine Appearance (Clear) Urine pH (5.0-8.0) Ur Specific [place] (1.001-1.035) Urine Protein (Negative) Urine Glucose (UA) (Negative) Urine Ketones (Negative) Urine Blood (Negative) Urine Nitrite (Negative) Urine Bilirubin (Negative) Urine Urobilinogen (<2.0) mg/dL Ur Leukocyte Esterase (Negative) - EKG Data EKG Comments: Uncertain irregular rhythm. Electronic ventricular pacemaker. 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 Ventricular rate 82 bpm, QRS duration 150 ms, QTC 424 ms. - Radiology Data Radiology results: report reviewed, image reviewed Disposition Clinical Impression: Altered mental status, Cellulitis of left leg Disposition: ADMITTED IP TO THIS [facility] Referrals: None,Stated [REFERRING] - 1-2 days
[2021-10-12] MEDS ORDERED: HYDROcodone/APAP 5-325MG 1 EACH TAB PO STA (19:17)
[2021-10-12 19:34] LABS: Basophils # (A) 0.1 k/uL (0-0.2); Basophils % (A) 0 %; Eosinophils # (A) 0.2 k/uL (0-0.7); Eosinophils % (A) 1 %; HCT 47.6 % (39.0-53.0); HGB 15.9 gm/dL (13.0-17.5); Lymphocytes # (A) 0.7 k/uL (1.0-4.8); Lymphocytes % (A) 3 %; MCH 29.7 pg (25.0-35.0); MCHC 33.4 g/dL (31.0-37.0); MCV 88.9 fL (80.0-100.0); Mean Platelet Volume 7.4; Monocytes # (A) 0.9 k/uL (0-1.0); Monocytes % (A) 5 %; Neutrophils # (A) 17.8 k/uL (1.3-7.7); Neutrophils % (A) 90 %; Platelet Count 135 k/uL (150-450); RBC 5.36 m/uL (4.30-5.90); RDW 14.2 % (11.5-15.5); WBC 19.7 k/uL (3.8-10.6)
[2021-10-12 19:41] LABS: Appearance,Urine Clear (Clear); Bilirubin,Urine Negative (Negative); Blood,Urine Negative (Negative); Color,Urine Light Yellow; Glucose,Urine (UA) 3+ (Negative); Ketones,Urine 1+ (Negative); Leukocyte Esterase,Urine Negative (Negative); Nitrite,Urine Negative (Negative); Protein,Urine Negative (Negative); Specific Gravity,Urine 1.016 (1.001-1.035); Urobilinogen,Urine <2.0 mg/dL (<2.0)
[2021-10-12 19:42] LABS: ALT 22 U/L (4-49); AST 35 U/L (17-59); African American GFR (CKD) >90 (>60 ml/min/1.73 sqM); Albumin 4.2 g/dL (3.5-5.0); Alkaline Phosphatase 75 U/L (38-126); Anion Gap 15 mmol/L; Blood Urea Nitrogen 17 mg/dL (9-20); Calcium 8.9 mg/dL (8.4-10.2); Carbon Dioxide 18 mmol/L (22-30); Chloride 101 mmol/L (98-107); Creatine Kinase 112 U/L (55-170); Glucose 212 mg/dL (74-99); Non-African American GFR(CKD) 90 (>60 ml/min/1.73 sqM); Potassium 3.4 mmol/L (3.5-5.1); Sodium 134 mmol/L (137-145); Total Bilirubin 1.2 mg/dL (0.2-1.3); Total Protein 7.2 g/dL (6.3-8.2)
--- NOTE | 2021-10-12 20:56 | XR ---
EXAMINATION TYPE: XR lumbar spine 2 or 3V DATE OF EXAM: 10/12/2021 7:44 PM INDICATION: Patient age:Male; 76 years old; Reason for study: Low back pain; COMPARISON: Lumbar spine radiograph 08/03/2021 TECHNIQUE: Frontal, lateral and coned in L5-S1 lateral views of the spine. FINDINGS: No evidence of any acute osseous pathology. No evidence of loss of vertebral body height i s seen. There is normal alignment of the lumbar vertebral bodies. Multilevel disc degeneration change s with straightening of the spine. Status post arterial vasculature. Grade 1 anterolisthesis of L4 an d L5. Scattered facet joint arthropathy throughout the spine. Remote right rib 10 fracture. IMPRESSION: No acute process. Moderate multilevel disc degeneration changes.
--- NOTE | 2021-10-12 21:01 | CT ---
EXAMINATION TYPE: CT brain wo con CT DLP: 1135.4 mGycm, Automated exposure control for dose reduction was used. DATE OF EXAM: 10/12/2021 8:00 PM COMPARISON: Prior CT Brain from 08/03/2021 CLINICAL INDICATION:Male, 76 years old with history of Altered mental status, pain after fall TECHNIQUE: Brain: Axial CT images of the brain were obtained with coronal and sagittal reformats created and rev iewed. Contrast used: None. Oral contrast used: None. FINDINGS: Brain: Extra-axial spaces: No abnormal extra-axial fluid collections. Ventricular system: Within normal limits Cerebral parenchyma: No acute intraparenchymal hemorrhage or mass effect. The mejia-white junction is well differentiated. Scattered hypoattenuating areas are seen within the white matter. Cerebellum: Unremarkable. Mass effect: No evidence of midline shift. Intracranial vasculature: Atherosclerotic calcifications of the intracranial vessels. Soft tissues: Normal. Calvarium/osseous structures: No depressed skull fracture. Paranasal sinuses and mastoid air cells: Mild scattered paranasal sinus disease. Visualized orbits: Orbital contents are intact. IMPRESSION: 1. No acute intracranial process. 2. Nonspecific white matter changes, likely secondary to chronic small vessel ischemic disease.
--- NOTE | 2021-10-12 21:03 | XR ---
EXAMINATION TYPE: XR chest 2V DATE OF EXAM: 10/12/2021 8:10 PM COMPARISON: Chest radiographs from 08/03/2021 TECHNIQUE: XR chest 2V Frontal view of the chest. CLINICAL INDICATION:Male, 76 years old with history of Fall, unknown injuries; FINDINGS: Lungs/Pleura: Low lung volumes are present. There is no evidence of pleural effusion, focal consolida tion, or pneumothorax. Pulmonary vascularity: Unremarkable. Heart/mediastinum: Cardiomediastinal silhouette is enlarged and stable. Two lead cardiac conduction d evice overlying the left hemithorax with lead tips projecting over the right ventricle and right atri um. Musculoskeletal: No acute osseous pathology. IMPRESSION: Cardiomegaly with low lung volumes no definite evidence of decompensated heart failure.
[2021-10-12] MEDS: HYDROcodone/APAP 5-325MG 1 EACH TAB PO SCH (22:37)
[2021-10-13] MEDS ORDERED: ONDANSETRON 4 MG/2 ML VIAL IVP PRN
[2021-10-13] MEDS ORDERED: ACETAMINOPHEN TAB 325 MG TAB PO PRN
[2021-10-13] MEDS ORDERED: NALOXONE 0.4 MG/ML 1 ML VIAL IV PRN
--- NOTE | 2021-10-13 00:32 | XR ---
EXAMINATION TYPE: XR tibia fibula bilateral DATE OF EXAM: 10/13/2021 COMPARISON: NONE HISTORY: Pain TECHNIQUE: 8 views FINDINGS: There is bilateral knee prosthesis. Components appear in anatomic position. No fracture see n. No evidence of a significant knee joint effusion. The tibia and fibula appear intact. There is vas cular calcification bilaterally. There is some mild subcutaneous edema around the lower legs bilatera lly. There is bilateral moderate sized plantar and Achilles calcaneal spurring. IMPRESSION: No fracture. Calcaneal spurring. Subcutaneous edema.
--- NOTE | 2021-10-13 00:34 | XR ---
EXAMINATION TYPE: XR foot limited bilateral DATE OF EXAM: 10/13/2021 COMPARISON: NONE HISTORY: Pain and swelling TECHNIQUE: 4 views FINDINGS: There is bilateral plantar and Achilles calcaneal spurring. Metatarsals are intact. No acut e fracture seen. There is apparent old osteotomy on the right first metatarsal head. There is vascula r calcification. There is multiple mild hammertoe deformities bilaterally. IMPRESSION: Calcaneal spurring. There is some osteoarthritis at the tarsometatarsal joints. No eviden ce of osteomyelitis.
[2021-10-13] MEDS: HYDROcodone/APAP 5-325MG 1 EACH TAB PO SCH ×6 (01:43→21:41)
[2021-10-13 02:28] LABS: Glucose,Whole Blood 248 mg/dL (70-110)
--- NOTE | 2021-10-13 04:14 | P.HPIM ---
History of Present Illness H&P Date: 10/13/21 Chief Complaint: altered mental status 76 year old male with DM on oral hypoglycemic agents, hypertension controlled, afib on blood thinner. patient brought in by EMS after sustaining a fall at home, he admits to frequent falling recently some with head injuries but no loss of consciousness. no significant injuries from these falls. however, he does feel shaky sometimes, he uses a walker but is still falling , he believes he mainly falls when he leans backwards. patient reports increase confusion recently . he denies any focal neuro deficits, denies any heart racing, chest pain , trouble breathing, headache, vision or hearing changes, GI bleeding. he is fru strated and would like to be safe and avoid these falls. denies urinary chnages, fever, chills, or URI symptoms in the ED blood work shoed mild hypokalemia , hyponatremia and metabolic acidosis . elevated blood sugar and urine ketones, but serum acetone was negative. he quit smoking 4 years ago, dneies any heavy alcohol consumption , or illicit drugs he noticed that his left leg getting more swollen compared to the right one, along with reddish discoloration Review of Systems Pertinent positives as noted in HPI. All other systems were reviewed and are ne gative Past Medical History Past Medical History: Atrial Flutter, Cancer, Diabetes Mellitus, Hyperlipidemia, Hypertension, Osteoarthritis (OA), Skin Disorder Additional Past Medical History / Comment(s): , eczema, arthritis; FOUND TO HAVE ABD MASS, NEAR AORTA AND VENA CAVA -. 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 CARDIAC ABLATION Past Anesthesia/Blood Transfusion Reactions: No Reported Reaction Type of Cardiac Device: Permanent Pacemaker Device Placement Date:: 2018 POSSIBLE DATE Past Psychological History: No Psychological Hx Reported Smoking Status: Former smoker Past Alcohol Use History: Rare Additional Past Alcohol Use History / Comment(s): STARTED SMOKING AT AGE 22 QUIT SMOKING AT 27 SMOKED 1/2PPD Past Drug Use History: None Reported - Past Family History Sister(s) Family Medical History: Cancer Medications and Allergies Home Medications Medication Instructions Recorded Confirmed Type amLODIPine BESYLATE 10 mg PO DAILY 12/18/19 10/12/21 History Apixaban [Eliquis] 5 mg PO BID 03/24/21 10/12/21 History Clopidogrel [Plavix] 75 mg PO DAILY #90 tablet 03/30/21 10/12/21 Rx Cholecalciferol [Vitamin D3 (125 125 mcg PO DAILY 08/03/21 10/12/21 History Mcg = 5000 Iu)] Losartan [Cozaar] 25 mg PO DAILY 08/03/21 10/12/21 History Rosuvastatin Calcium [Crestor] 40 mg PO DAILY 08/03/21 10/12/21 History Glimepiride [Amaryl] 4 mg PO DAILY 30 Days #30 tab 08/06/21 10/12/21 Rx Metoprolol Tartrate [Lopressor] 50 mg PO DAILY 60 Days #60 tab 08/06/21 10/12/21 Rx Cyanocobalamin (Vitamin B-12) 1,000 mcg PO DAILY 10/12/21 10/12/21 History [Vitamin B-12] Metoprolol Tartrate [Lopressor] 25 mg PO HS 10/12/21 10/12/21 History Allergies Allergy/AdvReac Type Severity Reaction Status Date / Time Milk Containing Products Allergy Unknown Verified 10/12/21 20:05 [Dairy] Physical Exam Vitals: Vital Signs Temp Pulse Pulse Resp BP BP Pulse Ox 10/13/21 01:07 97.9 F 80 22 118/68 96 10/13/21 00:22 98.1 F 76 16 140/61 96 10/12/21 22:38 82 18 110/64 94 L 10/12/21 17:31 78 17 166/68 96 10/12/21 17:28 83 16 150/75 96 Intake and Output 10/12/21 10/12/21 10/13/21 14:59 22:59 06:59 Other: Voiding Method External Catheter Weight 129.274 kg 129.274 kg Constitutional: No acute distress, conversant, pleasant Eyes: Anicteric sclerae, moist conjunctiva, Pupils equal round reactive to light ENMT: NC/AT Oropharynx clear, no erythema, or exudates Neck: Supple, no masses, or JVD No carotid bruits No thyromegaly Lungs: Clear to auscultation Clear to percussion Normal respiratory effort, no accessory muscle use Cardiovascular: Heart regular in rate and rhythm, systolic murmurs, no gallops, or rubs slight peripheral edema of the left leg Abdominal: Soft Nontender, no guarding, rebound or rigidity Abdomen moving with respiration Normoactive bowel sounds No hepatomegaly, No splenomegaly No palpable mass No abdominal wall hernia noted Skin: slight erythema and warmth to the touch of the skin of left lower leg, open superficial ulcer over the dorsum of the left leg ,otherwiseNormal temperature, tone, texture, turgor Extremities: No digital cyanosis No clubbing posterior tibial pulses intact and symmetrical Radial pulses intact and symmetrical No calf tenderness Psychiatric: Alert and oriented to person, place Appropriate affect Neuro Muscles Strength 5/5 in all 4 extremities Sensation to light touch grossly present throughout Cranial nerves II-XII grossly intact No focal sensory deficits Lymphatics: no palpable cervical or supraclavicular , or inguinal lymph nodes Results CBC & Chem 7: 10/12/21 19:28 10/12/21 19:28 Labs: Abnormal Lab Results - Last 24 Hours (Table) 10/12/21 10/12/21 10/12/21 Range/Units 19:28 19:28 19:28 WBC 19.7 H (3.8-10.6) k/uL Plt Count 135 L (150-450) k/uL Neutrophils # 17.8 H (1.3-7.7) k/uL Lymphocytes # 0.7 L (1.0-4.8) k/uL Sodium 134 L (137-145) mmol/L Potassium 3.4 L (3.5-5.1) mmol/L Carbon Dioxide 18 L (22-30) mmol/L Glucose 212 H (74-99) mg/dL POC Glucose (mg/dL) (70-110) mg/dL Troponin I (0.000-0.034) ng/mL Urine Glucose (UA) 3+ H (Negative) Urine Ketones 1+ H (Negative) 10/12/21 10/13/21 Range/Units 19:28 02:26 WBC (3.8-10.6) k/uL Plt Count (150-450) k/uL Neutrophils # (1.3-7.7) k/uL Lymphocytes # (1.0-4.8) k/uL Sodium (137-145) mmol/L Potassium (3.5-5.1) mmol/L Carbon Dioxide (22-30) mmol/L Glucose (74-99) mg/dL POC Glucose (mg/dL) 248 H (70-110) mg/dL Troponin I 0.053 H* (0.000-0.034) ng/mL Urine Glucose (UA) (Negative) Urine Ketones (Negative) Thrombosis Risk Factor Assmnt - Choose All That Apply Any of the Below Risk Factors Present?: Yes Each Factor Represents 1 point: Obesity (BMI >25) Each Risk Factor Represents 2 Points: Age 61-74 years Other congenital or acquired thrombophilia - If yes, enter type in comment: No Thrombosis Risk Factor Assessment Total Risk Factor Score: 3 Thrombosis Risk Factor Assessment Level: Moderate Risk Assessment and Plan Assessment: acute metabolic encephalopathy frequent falling aflutter / afib on eliquis , s/p pacemaker metabolic acidosis cellulitis of the left leg DM hypertension plan supportive care fall precaution s follow up cultures replace electrolytes K IVF hydration with normal saline elevated troponin , no chest pain empiric antibiotics insuline sliding scale resume blood thinners, plavix , statin resume home blood pressure meds UA unremarkable DVT PPX on eliquis for afib full code
[2021-10-13] MEDS ORDERED: POTASSIUM CHLORIDE ER 20 MEQ TAB.ER PO STA (04:16)
[2021-10-13 06:24] LABS: Glucose,Whole Blood 233 mg/dL (70-110)
[2021-10-13] MEDS: INSULIN ASPART (NovoLOG) 100 UNIT/ML VIAL SQ SCH ×6 (06:39→20:33)
[2021-10-13] MEDS: ATORVASTATIN 80 MG TAB PO SCH (08:29)
[2021-10-13] MEDS: APIXABAN 5 MG TAB PO SCH ×2 (08:29→20:33)
[2021-10-13] MEDS: LOSARTAN 25 MG TAB PO SCH (08:29)
[2021-10-13] MEDS: amLODIPine 10 MG TAB PO SCH (08:29)
[2021-10-13] MEDS: METOPROLOL TARTRATE 50 MG TAB PO SCH (08:29)
[2021-10-13] MEDS: CLOPIDOGREL 75 MG TAB PO SCH (08:29)
[2021-10-13] MEDS ORDERED: DEXTROSE 50% SYRINGE 50 ML IVP PRN ×2 (08:57)
[2021-10-13] MEDS: INSULIN DETEMIR (LEVEMIR) 100 UNIT/ML SYR SQ SCH ×2 (10:11→20:33)
[2021-10-13 10:22] LABS: Basophils % (A) 0 %; Eosinophils % (A) 0 %; HGB 14.7 gm/dL (13.0-17.5); Lymphocytes # (A) 0.9 k/uL (1.0-4.8); Lymphocytes % (A) 5 %; MCH 29.6 pg (25.0-35.0); MCHC 32.7 g/dL (31.0-37.0); MCV 90.3 fL (80.0-100.0); Mean Platelet Volume 7.5; Monocytes % (A) 6 %; Neutrophils # (A) 14.8 k/uL (1.3-7.7); Neutrophils % (A) 88 %; Platelet Count 140 k/uL (150-450); RBC 4.99 m/uL (4.30-5.90); RDW 14.4 % (11.5-15.5); WBC 16.8 k/uL (3.8-10.6)
[2021-10-13 10:31] LABS: African American GFR (CKD) >90 (>60 ml/min/1.73 sqM); Anion Gap 15 mmol/L; Blood Urea Nitrogen 20 mg/dL (9-20); Calcium 8.4 mg/dL (8.4-10.2); Carbon Dioxide 22 mmol/L (22-30); Chloride 96 mmol/L (98-107); Glucose 235 mg/dL (74-99); Non-African American GFR(CKD) 86 (>60 ml/min/1.73 sqM); Potassium 3.7 mmol/L (3.5-5.1); Sodium 133 mmol/L (137-145)
[2021-10-13 12:03] LABS: Glucose,Whole Blood 241 mg/dL (70-110)
[2021-10-13] MEDS ORDERED: VANCOMYCIN IV PER PHARMACY 1 EACH MISC MISCELLANE PRN (13:10)
--- NOTE | 2021-10-13 13:17 | P.PN ---
Progress Note - Text Progress Note Date: 10/20/21 Patient was seen this morning. He states that he feels well. I also discussed the case with the patient's . Per patient was having shaking spells and was also having chills prior to coming in. On admission patient was empirically started on IV Rocephin for possible cellulitis. Patient blood culture did come back positive for gram-positive cocci. I will consult infectious disease and also start patient on IV vancomycin. Patient is afebrile this morning and his WBC count is trending down.
[2021-10-13] MEDS ORDERED: CALCIUM CARBONATE 500 MG CHEWABLE PO PRN (13:18)
[2021-10-13] MEDS ORDERED: VANCOMYCIN 2,000 MG in SODIUM CHLORIDE 0.9% 500 ML 500 ML IVPB ONE (13:45)
[2021-10-13 16:31] LABS: Glucose,Whole Blood 237 mg/dL (70-110)
[2021-10-13 19:28] LABS: Glucose,Whole Blood 245 mg/dL (70-110)
[2021-10-13] MEDS: METOPROLOL TARTRATE 25 MG TAB PO SCH (20:33)
--- NOTE | 2021-10-13 21:48 | P.CONS ---
History of Present Illness - Reason for Consult Consult date: 10/13/21 Bacteremia Requesting physician: Adeel Andrew - History of Present Illness Patient is a 76-year-old male presenting to the hospital last evening for evaluation of fall injury Patient did have multiple falls over the last month patient mention he usually falls backwards and apparently has not lost any consciousness patient denies having any headache or URI symptoms patient denies having any chest pain or shortness of breath or cough. Denies any abdominal pain or diarrhea has been complaining of some lower back pain which seem to have been chronic for him more with a leaking 4-5 out of 10 and no radiation with no bowel or bladder problem, with the symptom the patient was evaluated by the ER physician on arrival to the ER the patient was afebrile and no fever have recorded subsequently patient did have elevated white count of 19.7 with a left shift kidney function has been normal liver exams are normal urine was negative patient did have blood culture drawn which came back positive with gram-positive cocci patient currently being treated with vancomycin and Rocephin infectious disease was consulted for further management of antibiotic therapy patient did have x-rays of the lumbar spine no acute process moderate multilevel disc degenerative changes patient did have the x-ray of the foot calcaneal spurring no osteomyelitis x-ray of the tibia-fibula did not show any fracture Review of Systems Positive point has been mentioned in the HPI rest of the systems are negative Past Medical History Past Medical History: Atrial Flutter, Cancer, Diabetes Mellitus, Hyperlipidemia, Hypertension, Osteoarthritis (OA), Skin Disorder Additional Past Medical History / Comment(s): , eczema, arthritis; FOUND TO HAVE ABD MASS, NEAR AORTA AND VENA CAVA -. dx 07/15/2013 non hodgkins lymphoma; KIDNEY STONES History of Any Multi-Drug Resistant Organisms: None Reported Past Surgical History: Ablation, Joint Replacement, Pacemaker Additional Past Surgical History / Comment(s): bilateral knee replacement, pilon idal cyst X2, right bunionectomy; PORT-A-CATH 07/17. CARDIAC ABLATION Past Anesthesia/Blood Transfusion Reactions: No Reported Reaction Type of Cardiac Device: Permanent Pacemaker Device Placement Date:: 2018 POSSIBLE DATE Past Psychological History: No Psychological Hx Reported Smoking Status: Former smoker Past Alcohol Use History: Rare Additional Past Alcohol Use History / Comment(s): STARTED SMOKING AT AGE 22 QUIT SMOKING AT 27 SMOKED 1/2PPD Past Drug Use History: None Reported - Past Family History Sister(s) Family Medical History: Cancer Medications and Allergies Home Medications Medication Instructions Recorded Confirmed Type amLODIPine BESYLATE 10 mg PO DAILY 12/18/19 10/12/21 History Apixaban [Eliquis] 5 mg PO BID 03/24/21 10/12/21 History Clopidogrel [Plavix] 75 mg PO DAILY #90 tablet 03/30/21 10/12/21 Rx Cholecalciferol [Vitamin D3 (125 125 mcg PO DAILY 08/03/21 10/12/21 History Mcg = 5000 Iu)] Losartan [Cozaar] 25 mg PO DAILY 08/03/21 10/12/21 History Rosuvastatin Calcium [Crestor] 40 mg PO DAILY 08/03/21 10/12/21 History Glimepiride [Amaryl] 4 mg PO DAILY 30 Days #30 tab 08/06/21 10/12/21 Rx Metoprolol Tartrate [Lopressor] 50 mg PO DAILY 60 Days #60 tab 08/06/21 10/12/21 Rx Cyanocobalamin (Vitamin B-12) 1,000 mcg PO DAILY 10/12/21 10/12/21 History [Vitamin B-12] Metoprolol Tartrate [Lopressor] 25 mg PO HS 10/12/21 10/12/21 History Allergies Allergy/AdvReac Type Severity Reaction Status Date / Time Milk Containing Products Allergy Unknown Verified 10/12/21 20:05 [Dairy] Physical Exam Vitals: Vital Signs Temp Pulse Pulse Resp BP BP Pulse Ox 10/13/21 13:13 63 10/13/21 11:30 63 16 109/63 98 10/13/21 08:22 98.2 F 70 20 136/75 94 L 10/13/21 04:00 98 F 73 17 126/58 97 10/13/21 01:07 97.9 F 80 22 118/68 96 10/13/21 00:22 98.1 F 76 16 140/61 96 10/12/21 22:38 82 18 110/64 94 L 10/12/21 17:31 78 17 166/68 96 10/12/21 17:28 83 16 150/75 96 Intake and Output 10/13/21 10/13/21 10/13/21 06:59 14:59 22:59 Output Total 400 Balance -400 Output: Urine 400 Other: Voiding Method External Catheter Urinal # Voids 2 Weight 129.274 kg GENERAL DESCRIPTION: Elderly male lying in bed, no distress. No tachypnea or accessory muscle of respiration use. HEENT: Shows Pallor , no scleral icterus. Oral mucous membrane is dry. No pharyngeal erythema or thrush NECK: Trachea central, no thyromegaly. LUNGS: Unlabored breathing. Clear to auscultation anteriorly. No wheeze or crackle. HEART: S1, S2, regular rate and rhythm. No loud murmur ABDOMEN: Soft, no tenderness , guarding or rigidity, no organomegaly EXTREMITIES: No edema of feet. SKIN: No rash, no masses palpable. NEUROLOGICAL: The patient is awake, alert, oriented x3, mood and affect normal. Results CBC & Chem 7: 10/13/21 09:30 10/13/21 09:30 Labs: Abnormal Lab Results - Last 24 Hours (Table) 10/12/21 10/12/21 10/12/21 Range/Units 19:28 19:28 19:28 WBC 19.7 H (3.8-10.6) k/uL Plt Count 135 L (150-450) k/uL Neutrophils # 17.8 H (1.3-7.7) k/uL Lymphocytes # 0.7 L (1.0-4.8) k/uL Sodium 134 L (137-145) mmol/L Potassium 3.4 L (3.5-5.1) mmol/L Chloride (98-107) mmol/L Carbon Dioxide 18 L (22-30) mmol/L Glucose 212 H (74-99) mg/dL POC Glucose (mg/dL) (70-110) mg/dL Hemoglobin A1c (0.0-6.0) % Troponin I (0.000-0.034) ng/mL Urine Glucose (UA) 3+ H (Negative) Urine Ketones 1+ H (Negative) 10/12/21 10/13/21 10/13/21 Range/Units 19:28 02:26 06:23 WBC (3.8-10.6) k/uL Plt Count (150-450) k/uL Neutrophils # (1.3-7.7) k/uL Lymphocytes # (1.0-4.8) k/uL Sodium (137-145) mmol/L Potassium (3.5-5.1) mmol/L Chloride (98-107) mmol/L Carbon Dioxide (22-30) mmol/L Glucose (74-99) mg/dL POC Glucose (mg/dL) 248 H 233 H (70-110) mg/dL Hemoglobin A1c (0.0-6.0) % Troponin I 0.053 H* (0.000-0.034) ng/mL Urine Glucose (UA) (Negative) Urine Ketones (Negative) 10/13/21 10/13/21 10/13/21 Range/Units 09:30 09:30 09:30 WBC 16.8 H (3.8-10.6) k/uL Plt Count 140 L (150-450) k/uL Neutrophils # 14.8 H (1.3-7.7) k/uL Lymphocytes # 0.9 L (1.0-4.8) k/uL Sodium 133 L (137-145) mmol/L Potassium (3.5-5.1) mmol/L Chloride 96 L (98-107) mmol/L Carbon Dioxide (22-30) mmol/L Glucose 235 H (74-99) mg/dL POC Glucose (mg/dL) (70-110) mg/dL Hemoglobin A1c (0.0-6.0) % Troponin I 0.056 H* (0.000-0.034) ng/mL Urine Glucose (UA) (Negative) Urine Ketones (Negative) 10/13/21 10/13/21 Range/Units 09:30 12:02 WBC (3.8-10.6) k/uL Plt Count (150-450) k/uL Neutrophils # (1.3-7.7) k/uL Lymphocytes # (1.0-4.8) k/uL Sodium (137-145) mmol/L Potassium (3.5-5.1) mmol/L Chloride (98-107) mmol/L Carbon Dioxide (22-30) mmol/L Glucose (74-99) mg/dL POC Glucose (mg/dL) 241 H (70-110) mg/dL Hemoglobin A1c 9.0 H (0.0-6.0) % Troponin I (0.000-0.034) ng/mL Urine Glucose (UA) (Negative) Urine Ketones (Negative) Microbiology - Last 24 Hours (Table) 10/13/21 10:04 Blood Culture Gram Stain - Preliminary Blood 10/12/21 22:45 Blood Culture - Final Blood Assessment and Plan Plan: 1patient with gram-positive bacteremia in this patient presented to hospital with multiple falls has been complaining of some lower back pain patient did not have any fever however did have elevated white count with some tenderness to lumbar spine possible source of this bacteremia is the patient currently do not have any other obvious focus for this positive blood culture. 2we will wait for the ID of this pathogen to determine further work-up. 3blood cultures will be repeated document clearance of bacteremia and check inflammatory markers. 4continue with Rocephin and vancomycin while waiting for the culture to finalize. We will follow on clinical condition and cultures to further adjust medication if needed Thank you for this consultation will follow this patient along with you
[2021-10-14] MEDS: HYDROcodone/APAP 5-325MG 1 EACH TAB PO SCH ×6 (02:49→22:49)
[2021-10-14] MEDS ORDERED: VANCOMYCIN 2,000 MG in SODIUM CHLORIDE 0.9% 500 ML 500 ML IVPB SCH ×2 (06:00→22:00)
[2021-10-14 07:25] LABS: Glucose,Whole Blood 250 mg/dL (70-110)
--- NOTE | 2021-10-14 08:30 | CA ---
Transthoracic Echo Report Name: Bam Mcwilliams Age: 76 Gender: M : 1945 Exam Date: 10/13/2021 14:22 Exam Location: [facility] Ht (in): 71 Wt (lb): 285 Ordering Physician: Adeel Andrew MD Attending/Referring Phys: Video Arc[employer] Manager Dyan Jonas RDCS Procedure CPT: Indications: Gram positive bacteremia Cardiac Hx: Technical Quality: Technically difficult study Contrast 1: Lumason Total Dose (mL): 3 Contrast 2: Total Dose (mL): MEASUREMENTS (Male / Female) Normal Values 2D ECHO LV Diastolic Diameter PLAX 6.4 cm 4.2 - 5.9 / 3.9 - 5.3 cm LV Systolic Diameter PLAX 5.3 cm IVS Diastolic Thickness 1.6 cm 0.6 - 1.0 / 0.6 - 0.9 cm LVPW Diastolic Thickness 1.4 cm 0.6 - 1.0 / 0.6 - 0.9 cm LV Relative Wall Thickness 0.5 RV Internal Dim ED PLAX 3.6 cm LVOT Diameter 2.5 cm LA Systolic Diameter LX 4.8 cm 3.0 - 4.0 / 2.7 - 3.8 cm M-MODE Aortic Root Diameter MM 3.9 cm MV E Point Septal Separation 1.3 cm AV Cusp Separation MM 2.0 cm DOPPLER AV Peak Velocity 187.8 cm/s AV Peak Gradient 14.1 mmHg AV Mean Velocity 139.2 cm/s AV Mean Gradient 8.4 mmHg AV Velocity Time Integral 37.9 cm LVOT Peak Velocity 93.6 cm/s LVOT Peak Gradient 3.5 mmHg AV Area Cont Eq pk 2.4 cm??? MV Area PHT 3.4 cm??? MV Deceleration Time 254.2 ms TR Peak Velocity 264.7 cm/s TR Peak Gradient 28.0 mmHg Right Ventricular Systolic Press 33.0 mmHg FINDINGS Left Ventricle Left ventricular ejection fraction is estimated at 35-40 %. Mildly increased left ventricular diastolic diameter. Moderate concentric left ventricular hypertrophy. Right Ventricle Mild right ventricular dilatation. Mild pulmonary hypertension. Right Atrium Normal right atrial size. Left Atrium Moderately increased left atrial diameter. Mitral Valve [id number] mitral regurgitation. Aortic Valve Aortic valve not well visualized. Gradient on AOV Tricuspid Valve Mild tricuspid regurgitation. Pulmonic Valve Pulmonic valve not well visualized. Pericardium Normal pericardium. Aorta Mild aortic dilatation at the level of the sinuses of valsalva 39 mm. CONCLUSIONS Technically suboptimal study secondary to poor echo windows Moderate LV systolic dysfunction Consider transesophageal echo to definitively rule out vegetation. If That is the clinical question that's been post Previewed by: Dr. Sixto Mars MD (Electronically Signed) Final Date: 14 October 2021 08:29
[2021-10-14 09:03] LABS: Basophils % (A) 0 %; Eosinophils # (A) 0.1 k/uL (0-0.7); Eosinophils % (A) 1 %; HGB 13.6 gm/dL (13.0-17.5); Lymphocytes # (A) 1.4 k/uL (1.0-4.8); Lymphocytes % (A) 12 %; MCHC 31.7 g/dL (31.0-37.0); MCV 91.6 fL (80.0-100.0); Mean Platelet Volume 7.5; Monocytes # (A) 0.8 k/uL (0-1.0); Monocytes % (A) 7 %; Neutrophils # (A) 8.6 k/uL (1.3-7.7); Neutrophils % (A) 77 %; Platelet Count 136 k/uL (150-450); RBC 4.69 m/uL (4.30-5.90); RDW 14.4 % (11.5-15.5); WBC 11.1 k/uL (3.8-10.6)
[2021-10-14] MEDS: ATORVASTATIN 80 MG TAB PO SCH (09:13)
[2021-10-14] MEDS: INSULIN DETEMIR (LEVEMIR) 100 UNIT/ML SYR SQ SCH ×2 (09:13→21:13)
[2021-10-14] MEDS: INSULIN ASPART (NovoLOG) 100 UNIT/ML VIAL SQ SCH ×7 (09:13→21:14)
[2021-10-14] MEDS: CLOPIDOGREL 75 MG TAB PO SCH (09:14)
[2021-10-14] MEDS: LOSARTAN 25 MG TAB PO SCH (09:14)
[2021-10-14] MEDS: METOPROLOL TARTRATE 50 MG TAB PO SCH (09:14)
[2021-10-14] MEDS: amLODIPine 10 MG TAB PO SCH (09:14)
[2021-10-14] MEDS: APIXABAN 5 MG TAB PO SCH ×2 (09:14→21:13)
[2021-10-14 09:40] LABS: ALT 19 U/L (4-49); AST 26 U/L (17-59); African American GFR (CKD) >90 (>60 ml/min/1.73 sqM); Albumin 3.5 g/dL (3.5-5.0); Alkaline Phosphatase 73 U/L (38-126); Anion Gap 11 mmol/L; Blood Urea Nitrogen 23 mg/dL (9-20); Carbon Dioxide 27 mmol/L (22-30); Chloride 97 mmol/L (98-107); Glucose 278 mg/dL (74-99); Non-African American GFR(CKD) 88 (>60 ml/min/1.73 sqM); Potassium 4.3 mmol/L (3.5-5.1); Sodium 135 mmol/L (137-145); Total Bilirubin 0.5 mg/dL (0.2-1.3); Total Protein 6.2 g/dL (6.3-8.2)
[2021-10-14 09:53] LABS: C Reactive Protein 20.3 mg/dL (<1.0)
[2021-10-14 11:02] LABS: Erythrocyte Sedimentation Rate 35 mm/hr (0-15)
--- NOTE | 2021-10-14 11:08 | P.PN ---
Subjective Progress Note Date: 10/14/21 Principal diagnosis: Weakness and multiple falls Patient states that he is feeling much better today. He is denying any fever or chills or rigors. Objective - Vital Signs Vital signs: Vital Signs Temp 97.2 F L 10/14/21 08:00 Pulse 70 10/14/21 08:00 Resp 18 10/14/21 08:00 BP 102/60 10/14/21 08:00 Pulse Ox 97 10/14/21 08:00 FiO2 Intake & Output 10/13/21 10/14/21 10/14/21 18:59 06:59 18:59 Intake Total 118 Balance 118 Intake: Oral 118 Other: Voiding Method Urinal Urinal Urinal # Voids 2 1 1 - Exam General examination - Alert and Oriented 3 in NAD Heart - + S1S2 no murmurs Lungs - Clear to auscultation Abdomen soft NT ND +ve BS Extremities - bilateral lower extremity edema with discoloration. 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 Psych - Calm and cooperative - Labs CBC & Chem 7: 10/14/21 08:36 10/14/21 08:36 Labs: Abnormal Lab Results - Last 24 Hours (Table) 10/13/21 10/13/21 10/13/21 Range/Units 09:30 12:02 16:29 WBC (3.8-10.6) k/uL Plt Count (150-450) k/uL Neutrophils # (1.3-7.7) k/uL ESR (0-15) mm/hr Sodium (137-145) mmol/L Chloride (98-107) mmol/L BUN (9-20) mg/dL Glucose (74-99) mg/dL POC Glucose (mg/dL) 241 H 237 H (70-110) mg/dL Hemoglobin A1c 9.0 H (0.0-6.0) % Calcium (8.4-10.2) mg/dL C-Reactive Protein (<1.0) mg/dL Total Protein (6.3-8.2) g/dL Procalcitonin (0.02-0.09) ng/mL 10/13/21 10/14/21 10/14/21 Range/Units 19:26 07:22 08:36 WBC (3.8-10.6) k/uL Plt Count (150-450) k/uL Neutrophils # (1.3-7.7) k/uL ESR (0-15) mm/hr Sodium (137-145) mmol/L Chloride (98-107) mmol/L BUN (9-20) mg/dL Glucose (74-99) mg/dL POC Glucose (mg/dL) 245 H 250 H (70-110) mg/dL Hemoglobin A1c (0.0-6.0) % Calcium (8.4-10.2) mg/dL C-Reactive Protein (<1.0) mg/dL Total Protein (6.3-8.2) g/dL Procalcitonin 0.62 H (0.02-0.09) ng/mL 10/14/21 10/14/21 Range/Units 08:36 08:36 WBC 11.1 H (3.8-10.6) k/uL Plt Count 136 L (150-450) k/uL Neutrophils # 8.6 H (1.3-7.7) k/uL ESR 35 H (0-15) mm/hr Sodium 135 L (137-145) mmol/L Chloride 97 L (98-107) mmol/L BUN 23 H (9-20) mg/dL Glucose 278 H (74-99) mg/dL POC Glucose (mg/dL) (70-110) mg/dL Hemoglobin A1c (0.0-6.0) % Calcium 8.0 L (8.4-10.2) mg/dL C-Reactive Protein 20.3 H (<1.0) mg/dL Total Protein 6.2 L (6.3-8.2) g/dL Procalcitonin (0.02-0.09) ng/mL Microbiology - Last 24 Hours (Table) 10/13/21 10:04 Blood Culture Gram Stain - Preliminary Blood Blood Culture - Preliminary Strep agalactiae - (group b) 10/12/21 22:45 Blood Culture - Final Blood Assessment and Plan Assessment: 76-year-old male with diabetes, hypertension, atrial fibrillation and chronic back pain who came into the ED with multiple falls at home and reported t hat he was having chills and rigors and memory issues. Group B streptococcus bacteremia -Unclear source. Patient has superficial wound on the back of his left lower extremity so likely not the source of his bacteremia. He also had left lower extremity cellulitis which is mild and again likely not the source of his bacteremia -Infectious disease consult -Antibiotics as per infectious disease: Patient currently on IV vancomycin and Rocephin -2-D echocardiogram negative for vegetation -We'll consult cardiology for JESSICA -Follow up repeat blood cultures (done on 10/14/2021) -WBC is improving. Patient is afebrile. Patient normotensive. Multiple falls at home likely due to the above versus chronic debility -Per patient and falls have been going on for a month. -PT OT clear patient go home with home care Cellulitis of the left lower extremity with superficial wound -Cellulitis has resolved Chronic systolic heart failure -2 months ago patient echocardiogram that showed EF of 40-45% -On this admission patient's EF is 35-40% -Patient does have bilateral lower extremity edema which patient states is chronic and also consistent with lymphedema. -Overall patient appears euvolemic. On previous admission patient's diuretics were discontinued because of electrolyte abnormalities and renal failure. Patient has not noticed any worsening lower extremity edema since his diuretics were held. Elevated troponin Troponins are flat and likely elevated due to chronic heart failure Atrial fibrillation status post pacemaker -Resume Eliquis and metoprolol Diabetes mellitus -Resume current insulin regimen and titrate as needed Hemoglobin A1c is 9.0 Hypertension -Resume home BP meds DVT prophylaxis: Eliquis Anticipated discharge: Depending on clinical course
[2021-10-14 12:19] LABS: Glucose,Whole Blood 210 mg/dL (70-110)
[2021-10-14 13:25] VITALS: BMI 39.7
--- NOTE | 2021-10-14 13:44 | P.CRDCN ---
History of Present Illness History of present illness: HISTORY OF PRESENT ILLNESS: This is a 76-year-old male with a past medical history significant for permanent atrial fibrillation, atrial flutter with previous ablation, sick sinus syndrome with BiV pacemaker in 2019, hypertension, hyperlipidemia, and coronary artery disease with stenting, most recently LAD in March 2021. Patient follows in the office with Dr. Lisa. We have been asked to see the patient in consultation for JESSICA. Patient examined at the bedside. Patient states he presented to the hospital due to suffering a few falls at home. The patient denies any syncopal episodes and reports these were mechanical falls. The patient was found to have bacteremia. Blood cultures are positive for strep agalactiae. Echocardiogram completed revealing ejection fraction 35-40%, mild pulmonary hypertension, [id number] mitral regurgitation, and mild tricuspid regurgitation. EKG revealed paced rhythm with underlying atrial fibrillation. Patient denies any chest pain or pressure. He denies shortness of breath. He reports lower extremity edema which he states is chronic for him. He denies any dizziness or lightheadedness. He denies any fever or chills at home. REVIEW OF SYSTEMS: At the time of my exam: CONSTITUTIONAL: Denies fever or chills. HEENT: Denies blurred vision, vision changes, or eye pain. Denies hemoptysis CARDIOVASCULAR: Denies chest pain. Denies orthopnea. Denies PND. Denies palpitations RESPIRATORY: Denies shortness of breath. GASTROINTESTINAL: Denies abdominal pain. Denies nausea or vomiting. HEMATOLOGIC: Denies bleeding disorders. GENITOURINARY: Denies any blood in urine. SKIN: Denies pruitis. Denies rash. PHYSICAL EXAM: VITAL SIGNS: Reviewed. GENERAL: Well-developed in no acute distress. HEENT: Head is normocephalic. Pupils are equal, round. Sclerae anicteric. Mucous membranes of the mouth are moist. Neck supple. No JVD or thyromegaly LUNGS: Respirations even and unlabored. Lungs essentially clear to auscultation bilaterally. HEART: Iregular rate and rhythm. S1 and S2 heard. Systolic murmur noted. ABDOMEN: Soft. Nondistended. Nontender. EXTREMITIES: Normal range of motion. No clubbing or cyanosis. Peripheral pulses intact. 2+ lower extremity edema noted. Left worse than right. NEUROLOGIC: Awake and alert. Oriented x 3. ASSESSMENT: Mechanical falls Bacteremia, blood cultures are positive for strep agalactiae Permanent atrial fibrillation, anticoagulated with L Aquinas History of atrial flutter with previous ablation Sick sinus syndrome with BiV pacemaker Hypertension Hyperlipidemia Coronary artery disease with previous stenting, most recently to LAD in March 2021 PLAN: Continue current cardiac medications Patient will be scheduled for JESSICA tomorrow with Dr. Gutierrez Further recommendations pending patient course Nurse practitioner note has been reviewed by physician. Signing provider agrees with the documented findings, assessment, and plan of care. Past Medical History Past Medical History: Atrial Flutter, Cancer, Diabetes Mellitus, Hyperlipidemia, Hypertension, Osteoarthritis (OA), Skin Disorder Additional Past Medical History / Comment(s): , eczema, arthritis; FOUND TO HAVE ABD MASS, NEAR AORTA AND VENA CAVA -. 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 CARDIAC ABLATION Past Anesthesia/Blood Transfusion Reactions: No Reported Reaction Type of Cardiac Device: Permanent Pacemaker Device Placement Date:: 2019 POSSIBLE DATE Past Psychological History: No Psychological Hx Reported Smoking Status: Former smoker Past Alcohol Use History: Rare Additional Past Alcohol Use History / Comment(s): STARTED SMOKING AT AGE 22 QUIT SMOKING AT 27 SMOKED 1/2PPD Past Drug Use History: None Reported - Past Family History Sister(s) Family Medical History: Cancer Medications and Allergies Home Medications Medication Instructions Recorded Confirmed Type amLODIPine BESYLATE 10 mg PO DAILY 12/18/19 10/12/21 History Apixaban [Eliquis] 5 mg PO BID 03/24/21 10/12/21 History Clopidogrel [Plavix] 75 mg PO DAILY #90 tablet 03/30/21 10/12/21 Rx Cholecalciferol [Vitamin D3 (125 125 mcg PO DAILY 08/03/21 10/12/21 History Mcg = 5000 Iu)] Losartan [Cozaar] 25 mg PO DAILY 08/03/21 10/12/21 History Rosuvastatin Calcium [Crestor] 40 mg PO DAILY 08/03/21 10/12/21 History Glimepiride [Amaryl] 4 mg PO DAILY 30 Days #30 tab 08/06/21 10/12/21 Rx Metoprolol Tartrate [Lopressor] 50 mg PO DAILY 60 Days #60 tab 08/06/21 10/12/21 Rx Cyanocobalamin (Vitamin B-12) 1,000 mcg PO DAILY 10/12/21 10/12/21 History [Vitamin B-12] Metoprolol Tartrate [Lopressor] 25 mg PO HS 10/12/21 10/12/21 History Allergies Allergy/AdvReac Type Severity Reaction Status Date / Time Milk Containing Products Allergy Unknown Verified 10/12/21 20:05 [Dairy] Physical Exam Vitals: Vital Signs Temp Pulse Resp BP Pulse Ox 10/14/21 08:00 97.2 F L 70 18 102/60 97 10/14/21 04:00 97.7 F 61 18 128/79 96 10/13/21 23:48 72 16 134/72 99 10/13/21 20:00 97.7 F 76 18 111/66 97 10/13/21 16:14 97.5 F L 65 16 106/63 98 10/13/21 13:13 63 Intake and Output 10/13/21 10/14/21 10/14/21 22:59 06:59 14:59 Intake Total 118 Balance 118 Intake: Oral 118 Other: Voiding Method Urinal Urinal Urinal # Voids 1 1 1 Results 10/14/21 08:36 10/14/21 08:36 Cardiac Enzymes 10/14/21 Range/Units 08:36 AST 26 (17-59) U/L CBC 10/14/21 Range/Units 08:36 WBC 11.1 H (3.8-10.6) k/uL RBC 4.69 (4.30-5.90) m/uL Hgb 13.6 (13.0-17.5) gm/dL Hct 43.0 (39.0-53.0) % Plt Count 136 L (150-450) k/uL Comprehensive Metabolic Panel 10/14/21 Range/Units 08:36 Sodium 135 L (137-145) mmol/L Potassium 4.3 (3.5-5.1) mmol/L Chloride 97 L (98-107) mmol/L Carbon Dioxide 27 (22-30) mmol/L BUN 23 H (9-20) mg/dL Creatinine 0.80 (0.66-1.25) mg/dL Glucose 278 H (74-99) mg/dL Calcium 8.0 L (8.4-10.2) mg/dL AST 26 (17-59) U/L ALT 19 (4-49) U/L Alkaline Phosphatase 73 (38-126) U/L Total Protein 6.2 L (6.3-8.2) g/dL Albumin 3.5 (3.5-5.0) g/dL Current Medications Generic Name Dose Route Start Last Admin Trade Name Freq PRN Reason Stop Dose Admin Acetaminophen 650 mg 10/13/21 00:00 Acetaminophen Tab 325 Mg Tab PO Q6HR PRN Mild Pain or Fever > 100.5 Hydrocodone Bitart/Acetaminophen 1 each 10/12/21 21:45 10/14/21 12:46 Hydrocodone/Apap 5-325mg 1 Each Tab PO Not Given Q4H [facility] Amlodipine Besylate 10 mg 10/13/21 09:00 10/14/21 09:14 Amlodipine 10 Mg Tab PO 10 mg DAILY URSULA Administration Apixaban 5 mg 10/13/21 09:00 10/14/21 09:14 Apixaban 5 Mg Tab PO 5 mg BID [facility] Administration Protocol Atorvastatin Calcium 40 mg 10/13/21 09:00 10/14/21 09:13 Atorvastatin 80 Mg Tab PO 40 mg DAILY URSULA Administration Calcium Carbonate/Glycine 500 mg 10/13/21 13:18 10/13/21 13:33 Calcium Carbonate 500 Mg Chewable PO 500 mg TID PRN Administration Heartburn Clopidogrel Bisulfate 75 mg 10/13/21 09:00 10/14/21 09:14 Clopidogrel 75 Mg Tab PO 75 mg DAILY URSULA Administration Dextrose/Water 25 ml 10/13/21 08:57 Dextrose 50% Syringe 50 Ml IVP PER PROTOCOL PRN Hypoglycemia Protocol Dextrose/Water 50 ml 10/13/21 08:57 Dextrose 50% Syringe 50 Ml IVP PER PROTOCOL PRN Hypoglycemia Protocol Cefazolin Sodium 2 gm/ Sodium 50 mls @ 100 mls/hr 10/14/21 16:00 Chloride IVPB Q8HR [facility] Protocol Insulin Aspart 0 unit 10/13/21 07:30 10/14/21 12:45 Insulin Aspart (Novolog) 100 Unit/Ml Vial SQ 6 unit ACHS URSULA Administration Protocol Insulin Aspart 5 unit 10/13/21 12:30 10/14/21 12:46 Insulin Aspart (Novolog) 100 Unit/Ml Vial SQ 5 unit AC-TID URSULA Administration Insulin Detemir 10 unit 10/13/21 09:30 10/14/21 09:13 Insulin Detemir (Levemir) 100 Unit/Ml Syr SQ 10 unit BID URSULA Administration Losartan Potassium 25 mg 10/13/21 09:00 10/14/21 09:14 Losartan 25 Mg Tab PO 25 mg DAILY URSULA Administration Metoprolol Tartrate 25 mg 10/13/21 21:00 10/13/21 20:33 Metoprolol Tartrate 25 Mg Tab PO 25 mg HS URSULA Administration Metoprolol Tartrate 50 mg 10/13/21 09:00 10/14/21 09:14 Metoprolol Tartrate 50 Mg Tab PO 50 mg DAILY URSULA Administration Naloxone HCl 0.2 mg 10/13/21 00:00 Naloxone 0.4 Mg/Ml 1 Ml Vial IV Q2M PRN Opioid Reversal Ondansetron HCl 4 mg 10/13/21 00:00 10/13/21 15:26 Ondansetron 4 Mg/2 Ml Vial IVP 4 mg Q8HR PRN Administration Nausea And Vomiting Intake and Output 10/13/21 10/14/21 10/14/21 22:59 06:59 14:59 Intake Total 118 Balance 118 Intake: Oral 118 Other: Voiding Method Urinal Urinal Urinal # Voids 1 1 1 10/14/21 08:36 10/14/21 08:36
[2021-10-14 17:11] LABS: Glucose,Whole Blood 171 mg/dL (70-110)
[2021-10-14 21:01] LABS: Glucose,Whole Blood 202 mg/dL (70-110)
[2021-10-14] MEDS: METOPROLOL TARTRATE 25 MG TAB PO SCH (21:13)
[2021-10-15] MEDS: HYDROcodone/APAP 5-325MG 1 EACH TAB PO SCH ×6 (02:59→20:57)
[2021-10-15 06:11] LABS: Glucose,Whole Blood 198 mg/dL (70-110)
[2021-10-15 07:06] LABS: Glucose,Whole Blood 195 mg/dL (70-110)
--- NOTE | 2021-10-15 08:09 | P.PN ---
Subjective Progress Note Date: 10/14/21 Principal diagnosis: Bacteremia Patient is a 76-year-old male presenting to the hospital with weakness and fall now with evidence of streptococcal bacteremia patient did have a chronic lower back pain and tenderness concerning for possible discitis. On today's evaluation that is 10/14/2021, the patient denies having any fevers or any chills, the patient is breathing comfortably no chest pain shortness of breath or cough no abdominal pain denies any worsening pain into the low back area no bowel or bladder problem Objective - Vital Signs Vital signs: Vital Signs Temp 97.7 F 10/14/21 04:00 Pulse 61 10/14/21 04:00 Resp 18 10/14/21 04:00 BP 128/79 10/14/21 04:00 Pulse Ox 96 10/14/21 04:00 FiO2 Intake & Output 10/13/21 10/14/21 10/14/21 18:59 06:59 18:59 Intake Total 118 Balance 118 Intake: Oral 118 Other: Voiding Method Urinal Urinal # Voids 2 1 1 - Exam GENERAL DESCRIPTION: An elderly male lying in bed in no distress RESPIRATORY SYSTEM: Unlabored breathing , decreased breath sounds at bases HEART: S1 S2 regular rate and rhythm , ABDOMEN: Soft , no tenderness EXTREMITIES: No edema feet - Labs CBC & Chem 7: 10/14/21 08:36 10/14/21 08:36 Labs: Abnormal Lab Results - Last 24 Hours (Table) 10/13/21 10/13/21 10/13/21 Range/Units 09:30 09:30 09:30 WBC 16.8 H (3.8-10.6) k/uL Plt Count 140 L (150-450) k/uL Neutrophils # 14.8 H (1.3-7.7) k/uL Lymphocytes # 0.9 L (1.0-4.8) k/uL Sodium 133 L (137-145) mmol/L Chloride 96 L (98-107) mmol/L BUN (9-20) mg/dL Glucose 235 H (74-99) mg/dL POC Glucose (mg/dL) (70-110) mg/dL Hemoglobin A1c (0.0-6.0) % Calcium (8.4-10.2) mg/dL Troponin I 0.056 H* (0.000-0.034) ng/mL C-Reactive Protein (<1.0) mg/dL Total Protein (6.3-8.2) g/dL 10/13/21 10/13/21 10/13/21 Range/Units 09:30 12:02 16:29 WBC (3.8-10.6) k/uL Plt Count (150-450) k/uL Neutrophils # (1.3-7.7) k/uL Lymphocytes # (1.0-4.8) k/uL Sodium (137-145) mmol/L Chloride (98-107) mmol/L BUN (9-20) mg/dL Glucose (74-99) mg/dL POC Glucose (mg/dL) 241 H 237 H (70-110) mg/dL Hemoglobin A1c 9.0 H (0.0-6.0) % Calcium (8.4-10.2) mg/dL Troponin I (0.000-0.034) ng/mL C-Reactive Protein (<1.0) mg/dL Total Protein (6.3-8.2) g/dL 10/13/21 10/14/21 10/14/21 Range/Units 19:26 07:22 08:36 WBC 11.1 H (3.8-10.6) k/uL Plt Count 136 L (150-450) k/uL Neutrophils # 8.6 H (1.3-7.7) k/uL Lymphocytes # (1.0-4.8) k/uL Sodium (137-145) mmol/L Chloride (98-107) mmol/L BUN (9-20) mg/dL Glucose (74-99) mg/dL POC Glucose (mg/dL) 245 H 250 H (70-110) mg/dL Hemoglobin A1c (0.0-6.0) % Calcium (8.4-10.2) mg/dL Troponin I (0.000-0.034) ng/mL C-Reactive Protein (<1.0) mg/dL Total Protein (6.3-8.2) g/dL 10/14/21 Range/Units 08:36 WBC (3.8-10.6) k/uL Plt Count (150-450) k/uL Neutrophils # (1.3-7.7) k/uL Lymphocytes # (1.0-4.8) k/uL Sodium 135 L (137-145) mmol/L Chloride 97 L (98-107) mmol/L BUN 23 H (9-20) mg/dL Glucose 278 H (74-99) mg/dL POC Glucose (mg/dL) (70-110) mg/dL Hemoglobin A1c (0.0-6.0) % Calcium 8.0 L (8.4-10.2) mg/dL Troponin I (0.000-0.034) ng/mL C-Reactive Protein 20.3 H (<1.0) mg/dL Total Protein 6.2 L (6.3-8.2) g/dL Microbiology - Last 24 Hours (Table) 10/13/21 10:04 Blood Culture Gram Stain - Preliminary Blood Blood Culture - Preliminary Strep agalactiae - (group b) 10/12/21 22:45 Blood Culture - Final Blood Assessment and Plan (1) Positive blood culture Current Visit: Yes Status: Acute Code(s): R78.81 - BACTEREMIA SNOMED Code(s): 552819359 Plan: 1patient with gram-positive bacteremia in this patient presented to hospital with multiple falls has been complaining of some lower back pain patient did not have any fever however did have elevated white count with some tenderness to lumbar spine possible source of this bacteremia is the patient currently do not have any other obvious focus for this positive blood culture. 2blood cultures have been finalized with Streptococcus blood culture had been repeated to document clearance of bacteremia 3 2-D echocardiogram was inconclusive and JESSICA has been ordered by cardiology/primary team 4unfortunately MRI could not be done as the patient did have a pacemaker if that JESSICA is negative we'll obtain a CT of the lumbosacral spine with contrast 5we will discontinue Rocephin and vancomycin start the patient cefazolin 2 g every 8 hours has multiple questions and those were answered in Layman terms Time with Patient: Less than 30
[2021-10-15 08:32] LABS: Basophils % (A) 0 %; Eosinophils # (A) 0.1 k/uL (0-0.7); Eosinophils % (A) 2 %; HCT 42.7 % (39.0-53.0); HGB 13.6 gm/dL (13.0-17.5); Lymphocytes # (A) 1.9 k/uL (1.0-4.8); Lymphocytes % (A) 21 %; MCH 29.3 pg (25.0-35.0); MCHC 31.8 g/dL (31.0-37.0); MCV 92.2 fL (80.0-100.0); Monocytes # (A) 0.6 k/uL (0-1.0); Monocytes % (A) 7 %; Neutrophils # (A) 5.9 k/uL (1.3-7.7); Neutrophils % (A) 67 %; Platelet Count 132 k/uL (150-450); RBC 4.64 m/uL (4.30-5.90); RDW 14.3 % (11.5-15.5); WBC 8.8 k/uL (3.8-10.6)
[2021-10-15] MEDS ORDERED: fentaNYL (PF) 50 MCG/ML 2 ML AMP ONE (08:45)
[2021-10-15 08:52] LABS: African American GFR (CKD) >90 (>60 ml/min/1.73 sqM); Anion Gap 8 mmol/L; Blood Urea Nitrogen 21 mg/dL (9-20); Calcium 8.1 mg/dL (8.4-10.2); Carbon Dioxide 28 mmol/L (22-30); Chloride 99 mmol/L (98-107); Glucose 192 mg/dL (74-99); Non-African American GFR(CKD) 85 (>60 ml/min/1.73 sqM); Potassium 4.1 mmol/L (3.5-5.1); Sodium 135 mmol/L (137-145)
[2021-10-15] MEDS ORDERED: BENZOCAINE SPRAY 1 CAN TOPICAL ONE (08:58)
[2021-10-15] MEDS ORDERED: SODIUM CHLORIDE 0.9% 500 ML 500 ML IV ONE (09:00)
[2021-10-15] MEDS ORDERED: fentaNYL (PF) 50 MCG/ML 2 ML AMP IV ONE (09:28)
[2021-10-15] MEDS ORDERED: MIDAZOLAM 2 MG/2 ML VIAL IV ONE ×2 (09:28→09:32)
--- NOTE | 2021-10-15 09:49 | P.PN ---
Subjective Progress Note Date: 10/15/21 PROGRESS NOTE The patient is a 76-year-old male with a known history of CAD who presented with falls and evidence of cellulitis with positive blood cultures. He has a known history of atrial fibrillation, post IV pacemaker, stenting of the LAD. He's feeling well this morning, he denies any chest discomfort, dizziness or palpitation. His breathing is stable. He denies any nausea or vomiting. He continues to be in atrial fibrillation with controlled ventricular response. Medications: Amlodipine 10 mg daily, Plavix 75 daily, insulin, losartan 25 mg daily, metoprolol tartrate 25 mg daily, Eliquis 5 mg twice a day, insulin PHYSICAL EXAMINATION: Blood pressure 132/70 heart rate 70 LUNGS: Clear to auscultation HEART: Irregular rate and rhythm, S1, S2. No S3. Holosystolic murmur at the apex ABDOMEN: Soft, nontender, no organomegaly EXTREMETIES: +1-2 edema with discoloration LAB: BUN 21, creatinine 0.89 IMPRESSION: 1. Bacteremia, rule out endocarditis 2. History of CAD status post stenting 3. History of cardiomyopathy 4. Atrial fibrillation, post pacemaker and ablation PLAN: 1. Proceed with JESSICA to rule out vegetations 2. Increase losartan and beta lindsay 3. Stop amlodipine 4. Follow renal functions 5. Depending results of the testing further recommendations will be made. Objective - Vital Signs Vital signs: Vital Signs Temp 98 F 10/15/21 04:00 Pulse 76 10/15/21 09:40 Resp 16 10/15/21 09:40 BP 132/77 10/15/21 09:40 Pulse Ox 98 10/15/21 09:40 FiO2 Intake & Output 10/14/21 10/15/21 10/15/21 18:59 06:59 18:59 Intake Total 854 50 Balance 854 50 Weight 129.274 kg 129.7 kg Intake: IV 50 Intake, IV Titration 500 Amount Vancomycin 2,000 mg In 500 Sodium Chloride 0.9% 500 ml 500 ml @ 167 mls/hr IVPB Q16H [facility] Rx#: [id number] Oral 354 Other: Voiding Method Urinal Urinal Urinal # Voids 1 2 - Labs CBC & Chem 7: 10/15/21 08:09 10/15/21 08:09 Labs: Abnormal Lab Results - Last 24 Hours (Table) 0810/14/21 10/14/21 Range/Units 08:36 08:36 08:36 Plt Count (150-450) k/uL ESR 35 H (0-15) mm/hr Sodium 135 L (137-145) mmol/L Chloride 97 L (98-107) mmol/L BUN 23 H (9-20) mg/dL Glucose 278 H (74-99) mg/dL POC Glucose (mg/dL) (70-110) mg/dL Calcium 8.0 L (8.4-10.2) mg/dL C-Reactive Protein 20.3 H (<1.0) mg/dL Total Protein 6.2 L (6.3-8.2) g/dL Procalcitonin 0.62 H (0.02-0.09) ng/mL 10/14/21 10/14/21 10/14/21 Range/Units 12:17 17:09 20:53 Plt Count (150-450) k/uL ESR (0-15) mm/hr Sodium (137-145) mmol/L Chloride (98-107) mmol/L BUN (9-20) mg/dL Glucose (74-99) mg/dL POC Glucose (mg/dL) 210 H 171 H 202 H (70-110) mg/dL Calcium (8.4-10.2) mg/dL C-Reactive Protein (<1.0) mg/dL Total Protein (6.3-8.2) g/dL Procalcitonin (0.02-0.09) ng/mL 10/15/21 10/15/21 10/15/21 Range/Units 06:10 07:02 08:09 Plt Count 132 L (150-450) k/uL ESR (0-15) mm/hr Sodium (137-145) mmol/L Chloride (98-107) mmol/L BUN (9-20) mg/dL Glucose (74-99) mg/dL POC Glucose (mg/dL) 198 H 195 H (70-110) mg/dL Calcium (8.4-10.2) mg/dL C-Reactive Protein (<1.0) mg/dL Total Protein (6.3-8.2) g/dL Procalcitonin (0.02-0.09) ng/mL 08/12/22 Range/Units 08:09 Plt Count (150-450) k/uL ESR (0-15) mm/hr Sodium 135 L (137-145) mmol/L Chloride (98-107) mmol/L BUN 21 H (9-20) mg/dL Glucose 192 H (74-99) mg/dL POC Glucose (mg/dL) (70-110) mg/dL Calcium 8.1 L (8.4-10.2) mg/dL C-Reactive Protein (<1.0) mg/dL Total Protein (6.3-8.2) g/dL Procalcitonin (0.02-0.09) ng/mL
--- NOTE | 2021-10-15 09:52 | P.PCN ---
Date of Procedure: 10/15/21 Description of Procedure: Indication: Rule out endocarditis Procedure Description: After explaining the procedure to the patient, it's risk and complications, blood pressure, heart rate and O2 saturation were monitored. The throat was sprayed with Cetacaine. Patient received 3 mg intravenous Versed, 50 mcg intravenous fentanyl. The probe was introduced into the esophagus without difficulty. Images were obtained. Following that, the probe was removed. There was no immediate complication. Findings: Left atrial size is dilated, left atrial appendage is normal. The inferior wall appears to be hypokinetic with moderately impaired systolic function, ejection fraction 40-45%. Left ventricle size is normal. The aortic valve is calcified with possible bicuspid structure and raphe. The mitral valve reveal calcifications but no evidence of vegetations. The mitral valve appears to be normal. Pacemaker wire noted in the right atrium and right ventricle. The ascending aorta is calcified. No pericardial effusion was noted. Contrast bubble study revealed no shunting across the intra-atrial septum. Doppler: Pulse wave and color Doppler were obtained, moderate to severe eccentric mitral regurgitation was mild tricuspid regurgitation. There is no shunting by color Doppler study. Conclusion: 1. Dilated left atrium with normal appearance of the left atrial appendage 2. Moderately impaired systolic function with segmental wall motion abnormality 3. Moderate to severe eccentric mitral regurgitation with calcified mitral valve 4. Calcified aortic valve with possible bicuspid valve with fusion or raphe 5. Mild mitral regurgitation 6. Wire noted in the right atrium and right ventricle 7. No evidence of endocarditis .
--- NOTE | 2021-10-15 09:52 | CDI ---
Documentation Clarification Form Date: 10/15/2021 09:28:56 AM From: Genia Calloway RN CCDS Admit Date: 10/13/2021 01:11:00 PM Patient Name: Bam Mcwilliams Visit Number: [id number] Discharge Date: ATTENTION: The Clinical Documentation Specialists (CDI) and [facility] Coding Staff appreciate your assistance in clarifying documentation. Please respond to the clarification below the line at the bottom and electronically sign. The CDI & [facility] Coding staff will review the response and follow-up if needed. Please note: Queries are made part of the Legal Health Record. If you have any questions, please contact the author of this message via ITS. Dr. Mily Ramirez Cellulitis is documented 10/13, H&P. Additional clarification regarding the type of cellulitis is requested. History/risk factors: 76-year-old male presents to the ED with after a fall at home, he feels shaky sometimes and increased confusion. Medical History: Atrial Flutter, DM, HTN and CA. Clinical Indicators: VSS: 10/12 B/P 150/75; HR 83; RR 16; SpO2 96% ra LABS: 10/12 Wbc 19.7; Neutrophils 17.8; Troponin 0.053; 0.056 Blood Culture: 10/13 Strep agalactiae (group b) Treatment: 10/12 Ceftriaxone IVPB x 1; 10/13 Vancomycin IVPB x 1; 10/13 Ceftriaxone IVPB x 1; 10/14 Cefazolin IVPB Q8HR; 10/13 Levemir 10Unit SQ BID [facility]; 10/13 Novolog 5Unit SQ AC-TID [facility]. Please clarify the type of cellulitis, if known: [ ] Cellulitis due to diabetes [ ] Chronic Cellulitis [x] Other, please specify: Acute bacterial cellulitis, relationship to DM unknown [ ] Unable to determine (Template Last Revised: May 2020) MTDD
[2021-10-15] MEDS: INSULIN ASPART (NovoLOG) 100 UNIT/ML VIAL SQ SCH ×7 (10:01→20:59)
[2021-10-15] MEDS: INSULIN DETEMIR (LEVEMIR) 100 UNIT/ML SYR SQ SCH ×2 (10:24→20:58)
[2021-10-15] MEDS: ATORVASTATIN 80 MG TAB PO SCH (10:24)
[2021-10-15] MEDS: METOPROLOL TARTRATE 50 MG TAB PO SCH ×2 (10:24→20:57)
[2021-10-15] MEDS: APIXABAN 5 MG TAB PO SCH ×2 (10:24→20:57)
[2021-10-15] MEDS: CLOPIDOGREL 75 MG TAB PO SCH (10:24)
[2021-10-15] MEDS: LOSARTAN 50 MG TAB PO SCH (10:27)
[2021-10-15] MEDS: amLODIPine 10 MG TAB PO SCH (10:35)
[2021-10-15 11:49] LABS: Glucose,Whole Blood 308 mg/dL (70-110)
--- NOTE | 2021-10-15 13:19 | P.PN ---
Subjective Progress Note Date: 10/15/21 Patient is doing well following his JESSICA. Patient says his back pain and cellulitis have resolved. He feels well. Repeat blood cultures from 10/14 showed no growth by 24 hours. Gen: awake, alert HEENT: normocephalic, atraumatic, good hearing acuity, moist mucous membranes Resp: good air exchange, breathing comfortably with no accessory muscle use CVS: good distal perfusion x 4, GI: soft, NTTP, ND : no SPT, no CVAT, mckinney catheter not present MSK: no pitting edema, no clubbing Neuro: non-focal, moving all extremities Psych: cooperative, euthymic mood Assessment/plan: 76-year-old male with diabetes, hypertension, atrial fibrillation and chronic back pain who came into the ED with multiple falls at home and reported that he was having chills and rigors and memory issues. Group B streptococcus bacteremia -Unclear source. Patient has superficial wound on the back of his left lower extremity so likely not the source of his bacteremia. He also had left lower extremity cellulitis which is mild and again likely not the source of his bacteremia -Infectious disease consult -Antibiotics as per infectious disease: Patient currently on IV vancomycin and Rocephin -2-D echocardiogram negative for vegetation -We'll consult cardiology for JESSICA = negative for vegetation -Follow up repeat blood cultures (done on 10/14/2021) -WBC is improving. Patient is afebrile. Patient normotensive. Multiple falls at home likely due to the above versus chronic debility -Per patient and falls have been going on for a month. -PT OT clear patient go home with home care Cellulitis of the left lower extremity with superficial wound -Cellulitis has resolved Chronic systolic heart failure -2 months ago patient echocardiogram that showed EF of 40-45% -On this admission patient's EF is 35-40% -Patient does have bilateral lower extremity edema which patient states is c hronic and also consistent with lymphedema. -Overall patient appears euvolemic. On previous admission patient's diuretics were discontinued because of electrolyte abnormalities and renal failure. Neeraj lopez has not noticed any worsening lower extremity edema since his diuretics were held. Elevated troponin Troponins are flat and likely elevated due to chronic heart failure Atrial fibrillation status post pacemaker -Resume Eliquis and metoprolol Diabetes mellitus -Resume current insulin regimen and titrate as needed Hemoglobin A1c is 9.0 Hypertension -Resume home BP meds DVT prophylaxis: Eliquis Anticipated discharge: Depending on clinical course Objective - Vital Signs Vital signs: Vital Signs Temp 98.1 F 10/15/21 10:35 Pulse 71 10/15/21 10:35 Resp 18 10/15/21 10:35 BP 123/64 10/15/21 10:35 Pulse Ox 95 10/15/21 10:35 FiO2 Intake & Output 10/14/21 10/15/21 10/15/21 18:59 06:59 18:59 Intake Total 854 50 Balance 854 50 Weight 129.274 kg 129.7 kg Intake: IV 50 Intake, IV Titration 500 Amount Vancomycin 2,000 mg In 500 Sodium Chloride 0.9% 500 ml 500 ml @ 167 mls/hr IVPB Q16H [facility] Rx#: [id number] Oral 354 Other: Voiding Method Urinal Urinal Urinal # Voids 1 2 - Labs CBC & Chem 7: 10/15/21 08:09 10/15/21 08:09 Labs: Abnormal Lab Results - Last 24 Hours (Table) 10/14/21 10/14/21 10/15/21 Range/Units 17:09 20:53 06:10 Plt Count (150-450) k/uL Sodium (137-145) mmol/L BUN (9-20) mg/dL Glucose (74-99) mg/dL POC Glucose (mg/dL) 171 H 202 H 198 H (70-110) mg/dL Calcium (8.4-10.2) mg/dL 10/15/21 10/15/21 10/15/21 Range/Units 07:02 08:09 08:09 Plt Count 132 L (150-450) k/uL Sodium 135 L (137-145) mmol/L BUN 21 H (9-20) mg/dL Glucose 192 H (74-99) mg/dL POC Glucose (mg/dL) 195 H (70-110) mg/dL Calcium 8.1 L (8.4-10.2) mg/dL 10/15/21 Range/Units 11:47 Plt Count (150-450) k/uL Sodium (137-145) mmol/L BUN (9-20) mg/dL Glucose (74-99) mg/dL POC Glucose (mg/dL) 308 H (70-110) mg/dL Calcium (8.4-10.2) mg/dL Microbiology - Last 24 Hours (Table) 10/14/21 08:36 Blood Culture - Preliminary Blood No Growth after 24 hours
--- NOTE | 2021-10-15 15:50 | P.PN ---
Subjective Progress Note Date: 10/15/21 Principal diagnosis: Bacteremia Patient is a 76-year-old male presenting to the hospital with weakness and fall now with evidence of streptococcal bacteremia patient did have a chronic lower back pain and tenderness concerning for possible discitis. Patient could not get an MRI because the pacemaker patient is status post JESSICA completed which was negative for vegetation On today's evaluation that is 10/15/2021, the patient remains to be afebrile, the patient is breathing comfortably on room air, the patient denies chest pain shortness of breath or cough no abdominal pain denies any worsening pain into the low back area no bowel or bladder problem Objective - Vital Signs Vital signs: Vital Signs Temp 98.1 F 10/15/21 10:35 Pulse 71 10/15/21 10:35 Resp 18 10/15/21 10:35 BP 123/64 10/15/21 10:35 Pulse Ox 95 10/15/21 10:35 FiO2 Intake & Output 10/14/21 10/15/21 10/15/21 18:59 06:59 18:59 Intake Total 854 50 Balance 854 50 Weight 129.274 kg 129.7 kg Intake: IV 50 Intake, IV Titration 500 Amount Vancomycin 2,000 mg In 500 Sodium Chloride 0.9% 500 ml 500 ml @ 167 mls/hr IVPB Q16H [facility] Rx#: [id number] Oral 354 Other: Voiding Method Urinal Urinal Urinal # Voids 1 2 - Exam GENERAL DESCRIPTION: An elderly male lying in bed in no distress RESPIRATORY SYSTEM: Unlabored breathing , decreased breath sounds at bases HEART: S1 S2 regular rate and rhythm , ABDOMEN: Soft , no tenderness EXTREMITIES: No edema feet - Labs CBC & Chem 7: 10/15/21 08:09 10/15/21 08:09 Labs: Abnormal Lab Results - Last 24 Hours (Table) 10/14/21 10/14/21 10/14/21 Range/Units 12:17 17:09 20:53 Plt Count (150-450) k/uL Sodium (137-145) mmol/L BUN (9-20) mg/dL Glucose (74-99) mg/dL POC Glucose (mg/dL) 210 H 171 H 202 H (70-110) mg/dL Calcium (8.4-10.2) mg/dL 10/15/21 10/15/21 10/15/21 Range/Units 06:10 07:02 08:09 Plt Count 132 L (150-450) k/uL Sodium (137-145) mmol/L BUN (9-20) mg/dL Glucose (74-99) mg/dL POC Glucose (mg/dL) 198 H 195 H (70-110) mg/dL Calcium (8.4-10.2) mg/dL 10/15/21 Range/Units 08:09 Plt Count (150-450) k/uL Sodium 135 L (137-145) mmol/L BUN 21 H (9-20) mg/dL Glucose 192 H (74-99) mg/dL POC Glucose (mg/dL) (70-110) mg/dL Calcium 8.1 L (8.4-10.2) mg/dL Microbiology - Last 24 Hours (Table) 10/14/21 08:36 Blood Culture - Preliminary Blood No Growth after 24 hours Assessment and Plan (1) Positive blood culture Current Visit: Yes Status: Acute Code(s): R78.81 - BACTEREMIA SNOMED Code(s): 484945386 Plan: 1patient with gram-positive bacteremia in this patient presented to hospital with multiple falls has been complaining of some lower back pain patient did not have any fever however did have elevated white count with some tenderness to lumbar spine possible source of this bacteremia is the patient currently do not have any other obvious focus for this positive blood culture. 2blood cultures have been finalized with Streptococcus blood culture had been repeated to document clearance of bacteremia 3 2-D echocardiogram was inconclusive and JESSICA has been negative for vegetation 4unfortunately MRI could not be done as the patient did have a pacemaker we will order CT of the lumbosacral spine with contrast to rule out discitis/abscess 5patient to continue with cefazolin 2 g every 8 hours Time with Patient: Less than 30
--- NOTE | 2021-10-15 16:14 | CT ---
EXAMINATION TYPE: CT lumbar spine w con DATE OF EXAM: 10/15/2021 COMPARISON: 08/03/2021 HISTORY: Discitis CT DLP: 9.4 mGycm CONTRAST: CT scan of the lumbar is performed with IV Contrast, patient injected with 100 ml mL of Isovue 300. TECHNIQUE: CT of the lumbar spine is performed on a spiral scan at 3 mm thick sections. Reconstructed images are performed in the coronal and sagittal planes. FINDINGS: T11-12: Ligamentum flavum calcification is present along the left posterior lateral region. This is mild anterior thecal sac compression. No spinal canal stenosis is present. T12-L1: No focal disc herniation or significant disc bulge is evident. No spinal canal stenosis or neural foraminal stenosis is present. L1-L2: Ligamentum flavum laxity is present on the left with some calcification. This is mild posterio r lateral thecal sac compression. No spinal canal stenosis is present. L2-L3: Broad-based disc bulge has moderate anterior thecal sac flattening. Facet hypertrophy and liga mentum flavum laxity are present contributing to lateral canal narrowing. Foraminal stenosis is prese nt greater on the left. L3-L4: Broad-based disc bulge is present with anterior thecal sac flattening. Facet hypertrophy and l igamentum flavum laxity is contributing to spinal canal narrowing, greater in the lateral projection. Severe left and moderate right foraminal stenosis is present. L4-L5: Facet hypertrophy is present with significant posterior lateral thecal sac compression. Latera l canal stenosis is present. Posterior endplate spurring is present. Spinal ligament calcification is present. This has moderate intrathecal sac impression. AP spinal canal stenosis present. L5-S1: Facet hypertrophy is present with some posterior lateral thecal sac contact. Mild disc bulge h as mild anterior thecal sac compression. Vertebral alignment appears normal. Sacroiliac joint degenerative changes are present. No acute osseo us changes evident. No suspicious enhancement is evident postcontrast images. No suspicious disc enha ncement is evident to suggest acute discitis. Endplates appear intact IMPRESSION: 1. Severe L4-5 spinal canal stenosis due to disc bulge and endplate spurring and facet hypertrophy a nd ligamentum flavum laxity. 2. Moderate spinal canal stenosis L3-4 due to facet hypertrophy of ligamentum flavum laxity and moder ate disc bulging. 3. Severe foraminal stenosis on the left L3-4 and L4-5. More moderate foraminal stenosis is present a t these levels on the right. 4. Additional foraminal stenosis is present L2-3.
[2021-10-15 16:34] LABS: Glucose,Whole Blood 257 mg/dL (70-110)
[2021-10-15 20:17] LABS: Glucose,Whole Blood 191 mg/dL (70-110)
[2021-10-16] MEDS: HYDROcodone/APAP 5-325MG 1 EACH TAB PO SCH ×6 (03:13→20:10)
[2021-10-16 07:04] LABS: Glucose,Whole Blood 205 mg/dL (70-110)
[2021-10-16] MEDS: INSULIN ASPART (NovoLOG) 100 UNIT/ML VIAL SQ SCH ×7 (08:07→20:11)
[2021-10-16] MEDS: METOPROLOL TARTRATE 50 MG TAB PO SCH ×2 (08:07→20:12)
[2021-10-16] MEDS: INSULIN DETEMIR (LEVEMIR) 100 UNIT/ML SYR SQ SCH ×2 (08:07→20:11)
[2021-10-16] MEDS: CLOPIDOGREL 75 MG TAB PO SCH (08:07)
[2021-10-16] MEDS: ATORVASTATIN 80 MG TAB PO SCH (08:07)
[2021-10-16] MEDS: APIXABAN 5 MG TAB PO SCH ×2 (08:07→20:12)
[2021-10-16] MEDS: LOSARTAN 50 MG TAB PO SCH (08:07)
[2021-10-16 09:29] LABS: African American GFR (CKD) >90 (>60 ml/min/1.73 sqM); Anion Gap 8 mmol/L; Blood Urea Nitrogen 21 mg/dL (9-20); Carbon Dioxide 28 mmol/L (22-30); Chloride 99 mmol/L (98-107); Glucose 270 mg/dL (74-99); Non-African American GFR(CKD) 89 (>60 ml/min/1.73 sqM); Potassium 4.5 mmol/L (3.5-5.1); Sodium 135 mmol/L (137-145)
--- NOTE | 2021-10-16 11:18 | P.PN ---
Subjective Progress Note Date: 10/16/21 Patient is doing well today, has no complaints of pain. Had a CT of the lumbar spine done yesterday which did not definitively show any source of infection, although this is not the ideal test obviously, which is precluded due to patient's pacemaker. Blood cultures continue to be negative. Gen: awake, alert HEENT: normocephalic, atraumatic, good hearing acuity, moist mucous membranes Resp: good air exchange, breathing comfortably with no accessory muscle use CVS: good distal perfusion x 4, GI: soft, NTTP, ND : no SPT, no CVAT, mckinney catheter not present MSK: no pitting edema, no clubbing Neuro: non-focal, moving all extremities Psych: cooperative, euthymic mood Assessment/plan: 76-year-old male with diabetes, hypertension, atrial fibrillation and chronic back pain who came into the ED with multiple falls at home and reported that he was having chills and rigors and memory issues. Group B streptococcus bacteremia -Unclear source. Patient has superficial wound on the back of his left lower extremity so likely not the source of his bacteremia. He also had left lower extremity cellulitis which is mild and again likely not the source of his bacteremia -Infectious disease consult -Antibiotics as per infectious disease: Patient currently on IV vancomycin and Rocephin -2-D echocardiogram negative for vegetation -We'll consult cardiology for JESSICA = negative for vegetation -Follow up repeat blood cultures (done on 10/14/2021) -WBC is improving. Patient is afebrile. Patient normotensive. Multiple falls at home likely due to the above versus chronic debility -Per patient and falls have been going on for a month. -PT OT clear patient go home with home care Cellulitis of the left lower extremity with superficial wound -Cellulitis has resolved Chronic systolic heart failure -2 months ago patient echocardiogram that showed EF of 40-45% -On this admission patient's EF is 35-40% -Patient does have bilateral lower extremity edema which patient states is chronic and also consistent with lymphedema. -Overall patient appears euvolemic. On previous admission patient's diuretics were discontinued because of electrolyte abnormalities and renal failure. Patient has not noticed any worsening lower extremity edema since his diuretics were held. Elevated troponin Troponins are flat and likely elevated due to chronic heart failure Atrial fibrillation status post pacemaker -Resume Eliquis and metoprolol Diabetes mellitus -Resume current insulin regimen and titrate as needed Hemoglobin A1c is 9.0 Hypertension -Resume home BP meds DVT prophylaxis: Eliquis Anticipated discharge: Depending on clinical course Objective - Vital Signs Vital signs: Vital Signs Temp 97.8 F 10/16/21 08:04 Pulse 58 L 10/16/21 08:04 Resp 18 10/16/21 08:04 BP 120/60 10/16/21 08:04 Pulse Ox 98 10/16/21 08:04 FiO2 Intake & Output 10/15/21 10/16/21 10/16/21 18:59 06:59 18:59 Intake Total 170 600 Balance 170 600 Intake: IV 50 Oral 120 600 Other: Voiding Method Urinal Urinal Urinal # Voids 1 - Labs CBC & Chem 7: 10/15/21 08:09 10/16/21 08:25 Labs: Abnormal Lab Results - Last 24 Hours (Table) 10/15/21 10/15/21 10/15/21 Range/Units 11:47 16:32 20:14 Sodium (137-145) mmol/L BUN (9-20) mg/dL Glucose (74-99) mg/dL POC Glucose (mg/dL) 308 H 257 H 191 H (70-110) mg/dL Calcium (8.4-10.2) mg/dL 10/16/21 10/16/21 Range/Units 07:02 08:25 Sodium 135 L (137-145) mmol/L BUN 21 H (9-20) mg/dL Glucose 270 H (74-99) mg/dL POC Glucose (mg/dL) 205 H (70-110) mg/dL Calcium 8.0 L (8.4-10.2) mg/dL Microbiology - Last 24 Hours (Table) 10/14/21 08:36 Blood Culture - Preliminary Blood No Growth after 48 hours 10/13/21 10:04 Blood Culture Gram Stain - Final Blood Blood Culture - Final Strep agalactiae - (group b)
[2021-10-16 12:06] LABS: Glucose,Whole Blood 283 mg/dL (70-110)
--- NOTE | 2021-10-16 13:39 | P.PN ---
Subjective Progress Note Date: 10/16/21 Physical pleasant 76-year-old gentleman with a history of CAD, atrial fibrillation, stenting of the LAD cardiomyopathy, status post biventricular pacemaker. Presented with cellulitis and altered mental status with evidence of bacteremia. Patient underwent JESSICA yesterday which showed no evidence of vegetat ions. Overall he is feeling better. Edema is stable. Denies any shortness of breath. Has no chest discomfort, palpitations, orthopnea or PND. Objective - Vital Signs Vital signs: Vital Signs Temp 97.4 F L 10/16/21 12:24 Pulse 66 10/16/21 12:24 Resp 18 10/16/21 12:24 BP 121/66 10/16/21 12:24 Pulse Ox 97 10/16/21 12:24 FiO2 Intake & Output 10/15/21 10/16/21 10/16/21 18:59 06:59 18:59 Intake Total 170 1200 Balance 170 1200 Intake: IV 50 Oral 120 1200 Other: Voiding Method Urinal Urinal Urinal # Voids 1 - Exam PHYSICAL EXAMINATION: HEENT: Head is atraumatic, normocephalic. Pupils equal, round. Neck is supple. There is no elevated jugular venous pressure. HEART EXAMINATION: Heart sounds regular, S1 and S2 normal. No murmur or gallop heard. CHEST EXAMINATION: Lungs are clear to auscultation and precussion. No chest wall tenderness is noted on palpation or with deep breathing. ABDOMEN: Soft, nontender. Bowel sounds are heard. No organomegaly noted. EXTREMITIES: 2+ peripheral pulses with evidence of mild peripheral edema left greater than right and no calf tenderness noted. NEUROLOGIC patient is awake, alert and oriented x3. . - Labs CBC & Chem 7: 10/15/21 08:09 10/16/21 08:25 Labs: Abnormal Lab Results - Last 24 Hours (Table) 10/15/21 10/15/21 10/16/21 Range/Units 16:32 20:14 07:02 Sodium (137-145) mmol/L BUN (9-20) mg/dL Glucose (74-99) mg/dL POC Glucose (mg/dL) 257 H 191 H 205 H (70-110) mg/dL Calcium (8.4-10.2) mg/dL 10/16/21 10/16/21 Range/Units 08:25 11:38 Sodium 135 L (137-145) mmol/L BUN 21 H (9-20) mg/dL Glucose 270 H (74-99) mg/dL POC Glucose (mg/dL) 283 H (70-110) mg/dL Calcium 8.0 L (8.4-10.2) mg/dL Microbiology - Last 24 Hours (Table) 10/14/21 08:36 Blood Culture - Preliminary Blood No Growth after 48 hours 10/13/21 10:04 Blood Culture Gram Stain - Final Blood Blood Culture - Final Strep agalactiae - (group b) Assessment and Plan Assessment: 1. Bacteremia, endocarditis ruled out 2. History of CAD status post stenting 3. History of cardiomyopathy 4. Atrial fibrillation, post pacemaker and ablation Plan: Cardiology's perspective medications were reviewed and we will continue the same. There is no evidence of vegetation on JESSICA. At this time we will follow the patient on an as-needed basis. Please do not hesitate to contact us with questions. [employer] note has been reviewed, I agree with a documented findings and plan of care. Patient was seen and examined.
[2021-10-16 16:58] LABS: Glucose,Whole Blood 218 mg/dL (70-110)
[2021-10-16 19:57] LABS: Glucose,Whole Blood 293 mg/dL (70-110)
[2021-10-17] MEDS: HYDROcodone/APAP 5-325MG 1 EACH TAB PO SCH ×6 (03:11→20:50)
[2021-10-17 07:17] LABS: Glucose,Whole Blood 189 mg/dL (70-110)
[2021-10-17] MEDS: APIXABAN 5 MG TAB PO SCH ×2 (08:11→20:48)
[2021-10-17] MEDS: CLOPIDOGREL 75 MG TAB PO SCH (08:12)
[2021-10-17] MEDS: INSULIN DETEMIR (LEVEMIR) 100 UNIT/ML SYR SQ SCH ×2 (08:12→20:48)
[2021-10-17] MEDS: METOPROLOL TARTRATE 50 MG TAB PO SCH ×2 (08:12→20:47)
[2021-10-17] MEDS: INSULIN ASPART (NovoLOG) 100 UNIT/ML VIAL SQ SCH ×7 (08:12→20:48)
[2021-10-17] MEDS: ATORVASTATIN 80 MG TAB PO SCH (08:12)
[2021-10-17] MEDS: LOSARTAN 50 MG TAB PO SCH (08:12)
--- NOTE | 2021-10-17 09:57 | P.PN ---
Subjective Progress Note Date: 10/16/21 Principal diagnosis: Bacteremia Patient is a 76-year-old male presenting to the hospital with weakness and fall now with evidence of streptococcal bacteremia patient did have a chronic lower back pain and tenderness concerning for possible discitis. Patient could not get an MRI because the pacemaker patient is status post JESSICA completed which was negative for vegetation On today's evaluation that is 10/16/2021, the patient continues to be afebrile, the patient is breathing comfortably on room air, the patient denies chest pain shortness of breath or cough, the patient denies abdominal pain , the patient pain to the low back is currently controlled, no diarrhea Objective - Vital Signs Vital signs: Vital Signs Temp 97.4 F L 10/16/21 12:24 Pulse 66 10/16/21 12:24 Resp 18 10/16/21 14:25 BP 121/66 10/16/21 12:24 Pulse Ox 97 10/16/21 12:24 FiO2 Intake & Output 10/15/21 10/16/21 10/16/21 18:59 06:59 18:59 Intake Total 170 1200 Balance 170 1200 Intake: IV 50 Oral 120 1200 Other: Voiding Method Urinal Urinal Urinal # Voids 1 4 - Exam GENERAL DESCRIPTION: An elderly male lying in bed in no distress RESPIRATORY SYSTEM: Unlabored breathing , decreased breath sounds at bases HEART: S1 S2 regular rate and rhythm , ABDOMEN: Soft , no tenderness EXTREMITIES: No edema feet - Labs CBC & Chem 7: 10/15/21 08:09 10/16/21 08:25 Labs: Abnormal Lab Results - Last 24 Hours (Table) 10/15/21 10/15/21 10/16/21 Range/Units 16:32 20:14 07:02 Sodium (137-145) mmol/L BUN (9-20) mg/dL Glucose (74-99) mg/dL POC Glucose (mg/dL) 257 H 191 H 205 H (70-110) mg/dL Calcium (8.4-10.2) mg/dL 10/16/21 10/16/21 Range/Units 08:25 11:38 Sodium 135 L (137-145) mmol/L BUN 21 H (9-20) mg/dL Glucose 270 H (74-99) mg/dL POC Glucose (mg/dL) 283 H (70-110) mg/dL Calcium 8.0 L (8.4-10.2) mg/dL Microbiology - Last 24 Hours (Table) 10/14/21 08:36 Blood Culture - Preliminary Blood No Growth after 48 hours 10/13/21 10:04 Blood Culture Gram Stain - Final Blood Blood Culture - Final Strep agalactiae - (group b) Assessment and Plan (1) Positive blood culture Current Visit: Yes Status: Acute Code(s): R78.81 - BACTEREMIA SNOMED Code(s): 782230469 Plan: 1patient with gram-positive bacteremia in this patient presented to hospital with multiple falls has been complaining of some lower back pain patient did not have any fever however did have elevated white count with some tenderness to lumbar spine possible source of this bacteremia is the patient currently do not have any other obvious focus for this positive blood culture. 2blood cultures have been finalized with Streptococcus blood culture had been repeated to document clearance of bacteremia 3 2-D echocardiogram was inconclusive and JESSICA has been negative for vegetation 4unfortunately MRI could not be done as the patient did have a pacemaker, patient did have CT of the lumbosacral spine which did shows multi-level degenerative changes no evidence of discitis however CTs is not a very sensitive test for discitis/paraspinal abscess 5patient to continue with cefazolin 2 g every 8 hours and in view of high clinical suspicious for possible paraspinal infection we'll recommend a PICC line and outpatient IV antibiotic on discharge Time with Patient: Less than 30
[2021-10-17 12:26] LABS: Glucose,Whole Blood 247 mg/dL (70-110)
[2021-10-17 16:54] LABS: Glucose,Whole Blood 246 mg/dL (70-110)
[2021-10-17 20:33] LABS: Glucose,Whole Blood 154 mg/dL (70-110)
[2021-10-18] MEDS: HYDROcodone/APAP 5-325MG 1 EACH TAB PO SCH ×6 (02:29→20:42)
[2021-10-18 07:14] LABS: Glucose,Whole Blood 259 mg/dL (70-110)
--- NOTE | 2021-10-18 07:16 | P.PN ---
Subjective Progress Note Date: 10/17/21 Principal diagnosis: Bacteremia Patient is a 76-year-old male presenting to the hospital with weakness and fall now with evidence of streptococcal bacteremia patient did have a chronic lower back pain and tenderness concerning for possible discitis. Patient could not get an MRI because the pacemaker patient is status post JESSICA completed which was negative for vegetation On today's evaluation that is 10/17/2021, the patient denies any fever or chills, the patient is breathing comfortably on room air, the patient denies chest pain shortness of breath or cough, the patient denies nausea no vomiting and no abdominal pain , the patient pain to the low back has decreased in intensity Objective - Vital Signs Vital signs: Vital Signs Temp 97.8 F 10/17/21 08:19 Pulse 61 10/17/21 08:19 Resp 18 10/17/21 08:19 BP 133/76 10/17/21 08:19 Pulse Ox 97 10/17/21 08:19 FiO2 Intake & Output 10/16/21 10/17/21 10/17/21 18:59 06:59 18:59 Intake Total 1800 120 600 Balance 1800 120 600 Intake: Oral 1800 120 600 Other: Voiding Method Urinal Toilet Toilet Urinal Urinal # Voids 4 1 1 - Exam GENERAL DESCRIPTION: An elderly male lying in bed in no distress RESPIRATORY SYSTEM: Unlabored breathing , decreased breath sounds at bases HEART: S1 S2 regular rate and rhythm , ABDOMEN: Soft , no tenderness EXTREMITIES: No edema feet - Labs CBC & Chem 7: 10/15/21 08:09 10/16/21 08:25 Labs: Abnormal Lab Results - Last 24 Hours (Table) 10/16/21 10/16/21 10/16/21 Range/Units 11:38 16:48 19:55 POC Glucose (mg/dL) 283 H 218 H 293 H (70-110) mg/dL 10/17/21 Range/Units 07:15 POC Glucose (mg/dL) 189 H (70-110) mg/dL Microbiology - Last 24 Hours (Table) 10/14/21 08:36 Blood Culture - Preliminary Blood No Growth after 48 hours Assessment and Plan (1) Positive blood culture Current Visit: Yes Status: Acute Code(s): R78.81 - BACTEREMIA SNOMED Code(s): 470403121 Plan: 1patient with gram-positive bacteremia in this patient presented to hospital with multiple falls has been complaining of some lower back pain patient did not have any fever however did have elevated white count with some tenderness to lumbar spine possible source of this bacteremia is the patient currently do not have any other obvious focus for this positive blood culture. 2blood cultures have been finalized with Streptococcus blood culture had been repeated to document clearance of bacteremia 3 2-D echocardiogram was inconclusive and JESSICA has been negative for vegetation 4unfortunately MRI could not be done as the patient did have a pacemaker, patient did have CT of the lumbosacral spine which did shows multi-level degenerative changes no evidence of discitis however CTs is not a very sensitive test for discitis/paraspinal abscess 5patient seemed to have shown clinical improvement and will continue with cefazolin 2 g every 8 hours and in view of high clinical suspicious for possible paraspinal infection we'll recommend a PICC line and outpatient IV Rocephin 2 g daily for 6 weeks as patient and family wanted outpatient infusion clinic instead of home infusion Time with Patient: Less than 30
[2021-10-18] MEDS: INSULIN ASPART (NovoLOG) 100 UNIT/ML VIAL SQ SCH ×7 (09:14→20:42)
[2021-10-18] MEDS: CLOPIDOGREL 75 MG TAB PO SCH (09:15)
[2021-10-18] MEDS: LOSARTAN 50 MG TAB PO SCH (09:15)
[2021-10-18] MEDS: METOPROLOL TARTRATE 50 MG TAB PO SCH ×2 (09:15→20:41)
[2021-10-18] MEDS: ATORVASTATIN 80 MG TAB PO SCH (09:15)
[2021-10-18] MEDS: APIXABAN 5 MG TAB PO SCH ×2 (09:15→20:41)
[2021-10-18 11:51] LABS: INR 1.1 (<1.2); Prothrombin Time 11.6 sec (9.0-12.0)
[2021-10-18 12:13] LABS: Glucose,Whole Blood 300 mg/dL (70-110)
[2021-10-18] MEDS: INSULIN DETEMIR (LEVEMIR) 100 UNIT/ML SYR SQ SCH ×2 (12:42→20:42)
--- NOTE | 2021-10-18 12:49 | P.PN ---
Subjective Progress Note Date: 10/18/21 Patient is doing well today, has no complaints of pain. Plan is for PICC line placement, then d/c tomorrow. Gen: awake, alert HEENT: normocephalic, atraumatic, good hearing acuity, moist mucous membranes Resp: good air exchange, breathing comfortably with no accessory muscle use CVS: good distal perfusion x 4, GI: soft, NTTP, ND : no SPT, no CVAT, mckinney catheter not present MSK: no pitting edema, no clubbing Neuro: non-focal, moving all extremities Psych: cooperative, euthymic mood Assessment/plan: 76-year-old male with diabetes, hypertension, atrial fibrillation and chronic back pain who came into the ED with multiple falls at home and reported that he was having chills and rigors and memory issues. Group B streptococcus bacteremia -Unclear source. Patient has superficial wound on the back of his left lower extremity so likely not the source of his bacteremia. He also had left lower extremity cellulitis which is mild and again likely not the source of his bacteremia -Infectious disease consult -Antibiotics as per infectious disease: Patient currently on IV vancomycin and Rocephin -2-D echocardiogram negative for vegetation -We'll consult cardiology for JESSICA = negative for vegetation -Follow up repeat blood cultures (done on 10/14/2021) -WBC is improving. Patient is afebrile. Patient normotensive. Multiple falls at home likely due to the above versus chronic debility -Per patient and falls have been going on for a month. -PT OT clear patient go home with home care Cellulitis of the left lower extremity with superficial wound -Cellulitis has resolved Chronic systolic heart failure -2 months ago patient echocardiogram that showed EF of 40-45% -On this admission patient's EF is 35-40% -Patient does have bilateral lower extremity edema which patient states is chronic and also consistent with lymphedema. -Overall patient appears euvolemic. On previous admission patient's diuretics were discontinued because of electrolyte abnormalities and renal failure. Patient has not noticed any worsening lower extremity edema since his diuretics were held. Elevated troponin Troponins are flat and likely elevated due to chronic heart failure Atrial fibrillation status post pacemaker -Resume Eliquis and metoprolol Diabetes mellitus -Resume current insulin regimen and titrate as needed Hemoglobin A1c is 9.0 Hypertension -Resume home BP meds DVT prophylaxis: Eliquis Anticipated discharge: Depending on clinical course Objective - Vital Signs Vital signs: Vital Signs Temp 97.8 F 10/18/21 09:07 Pulse 60 10/18/21 09:07 Resp 16 10/18/21 09:07 BP 141/65 10/18/21 09:07 Pulse Ox 98 10/18/21 09:07 FiO2 Intake & Output 10/17/21 10/18/21 10/18/21 18:59 06:59 18:59 Intake Total 1200 720 180 Balance 1200 720 180 Intake: Oral 1200 720 180 Other: Voiding Method Toilet Toilet Toilet Urinal Urinal # Voids 2 1 - Labs CBC & Chem 7: 10/15/21 08:09 10/16/21 08:25 Labs: Abnormal Lab Results - Last 24 Hours (Table) 10/17/21 10/17/21 10/18/21 Range/Units 16:37 20:31 07:12 POC Glucose (mg/dL) 246 H 154 H 259 H (70-110) mg/dL 10/18/21 Range/Units 12:12 POC Glucose (mg/dL) 300 H (70-110) mg/dL Microbiology - Last 24 Hours (Table) 10/14/21 08:36 Blood Culture - Preliminary Blood No Growth after 96 hours
[2021-10-18 16:49] LABS: Glucose,Whole Blood 123 mg/dL (70-110)
[2021-10-18 20:03] LABS: Glucose,Whole Blood 226 mg/dL (70-110)
[2021-10-19] MEDS: HYDROcodone/APAP 5-325MG 1 EACH TAB PO SCH ×4 (02:16→14:40)
[2021-10-19 07:09] LABS: Glucose,Whole Blood 220 mg/dL (70-110)
--- NOTE | 2021-10-19 07:20 | P.PN ---
Subjective Progress Note Date: 10/18/21 Principal diagnosis: Bacteremia Patient is a 76-year-old male presenting to the hospital with weakness and fall now with evidence of streptococcal bacteremia patient did have a chronic lower back pain and tenderness concerning for possible discitis. Patient could not get an MRI because the pacemaker patient is status post JESSICA completed which was negative for vegetation On today's evaluation that is 10/18/2021, the patient remains to be afebrile, the patient is breathing comfortably on room air, the patient denies chest pain shortness of breath or cough, the patient denies nausea no vomiting and no abdominal pain , the patient feeling better no new symptoms Objective - Vital Signs Vital signs: Vital Signs Temp 97.8 F 10/18/21 09:07 Pulse 60 10/18/21 09:07 Resp 16 10/18/21 09:07 BP 141/65 10/18/21 09:07 Pulse Ox 98 10/18/21 09:07 FiO2 Intake & Output 10/17/21 10/18/21 10/18/21 18:59 06:59 18:59 Intake Total 1200 720 180 Balance 1200 720 180 Intake: Oral 1200 720 180 Other: Voiding Method Toilet Toilet Toilet Urinal Urinal # Voids 2 1 - Exam GENERAL DESCRIPTION: An elderly male lying in bed in no distress RESPIRATORY SYSTEM: Unlabored breathing , decreased breath sounds at bases HEART: S1 S2 regular rate and rhythm , ABDOMEN: Soft , no tenderness EXTREMITIES: No edema feet - Labs CBC & Chem 7: 10/15/21 08:09 10/16/21 08:25 Labs: Abnormal Lab Results - Last 24 Hours (Table) 10/17/21 10/17/21 10/17/21 Range/Units 11:39 16:37 20:31 POC Glucose (mg/dL) 247 H 246 H 154 H (70-110) mg/dL 10/18/21 Range/Units 07:12 POC Glucose (mg/dL) 259 H (70-110) mg/dL Microbiology - Last 24 Hours (Table) 10/14/21 08:36 Blood Culture - Preliminary Blood No Growth after 96 hours Assessment and Plan (1) Positive blood culture Current Visit: Yes Status: Acute Code(s): R78.81 - BACTEREMIA SNOMED Code(s): 732924445 Plan: 1patient with gram-positive bacteremia in this patient presented to hospital with multiple falls has been complaining of some lower back pain patient did not have any fever however did have elevated white count with some tenderness to lumbar spine possible source of this bacteremia is the patient currently do not have any other obvious focus for this positive blood culture. 2blood cultures have been finalized with Streptococcus blood culture had been repeated to document clearance of bacteremia 3 2-D echocardiogram was inconclusive and JESSICA has been negative for vegetation 4unfortunately MRI could not be done as the patient did have a pacemaker, patient did have CT of the lumbosacral spine which did shows multi-level degenerative changes no evidence of discitis however CTs is not a very sensitive test for discitis/paraspinal abscess 5patient seemed to have shown clinical improvement and will continue with cefazolin 2 g every 8 hours and in view of high clinical suspicious for possible paraspinal infection we'll recommend a PICC line and outpatient IV Rocephin 2 g daily for 6 weeks, currently waiting for PICC line placement and antibiotic will be switched to Rocephin 2 g daily and monitor clinical course closely Time with Patient: Less than 30
[2021-10-19] MEDS: INSULIN DETEMIR (LEVEMIR) 100 UNIT/ML SYR SQ SCH (08:00)
[2021-10-19] MEDS: INSULIN ASPART (NovoLOG) 100 UNIT/ML VIAL SQ SCH ×6 (08:01→17:18)
[2021-10-19] MEDS: ATORVASTATIN 80 MG TAB PO SCH (08:01)
[2021-10-19] MEDS: LOSARTAN 50 MG TAB PO SCH (08:02)
[2021-10-19] MEDS: CLOPIDOGREL 75 MG TAB PO SCH (08:02)
[2021-10-19] MEDS: METOPROLOL TARTRATE 50 MG TAB PO SCH (08:02)
[2021-10-19] MEDS: APIXABAN 5 MG TAB PO SCH (08:02)
[2021-10-19 11:51] VITALS: PULSE 53
[2021-10-19 12:21] LABS: Glucose,Whole Blood 270 mg/dL (70-110)
[2021-10-19] MEDS ORDERED: LIDOCAINE 1% INJ 10MG/ML (5 ML VIAL-PF) SQ ONE (13:24)
[2021-10-19 14:51] VITALS: RESP 15
--- NOTE | 2021-10-19 15:57 | IR ---
PICC LINE PLACEMENT: HISTORY: Infection requiring long-term antibiotic therapy PROCEDURE: Ultrasound and fluoroscopic guidance of PICC line placement. COMPLICATIONS: None ANESTHESIA: 1. 1% Lidocaine locally. FINDINGS/TECHNIQUE: The procedure was explained to the patient. The risks, complications, benefits and alternatives were discussed and any questions were answered. Informed consent was obtained. The patient was placed supine on the fluoroscopic table and prepped and draped in the usual sterile fash ion. Utilizing a 21 gauge needle and sonographic and fluoroscopic guidance, access in the right cep halic vein was achieved and there is placement of a 0.018 guidewire. The vein is patent. A 4-F ascencio th was placed over the guidewire. The guidewire and dilator were removed and a 4-F. PICC line was pl aced through the sheath with the tip at the level of the SVC. The sheath was removed, the catheter w as flushed and sutured into position. The patient was stable throughout the procedure and remained s table upon discharge from the Department of Radiology. The vein puncture was patent under ultrasound. A mejia scale image was obtained to document patency of the vein punctured. All elements of the maximal barrier technique were utilized. FLUOROSCOPY TIME: 2.2 minutes of fluoroscopy and one image submitted IMPRESSION: Successful PICC line placement under ultrasound and fluoroscopic guidance.
[2021-10-19 16:10] VITALS: BP 168/73; TEMP 98
--- NOTE | 2021-10-19 16:20 | P.DS ---
Providers Date of admission: 10/13/21 13:11 Expected date of discharge: 10/19/21 Attending physician: Vahe Jackson MD Consults: 10/13/21 13:13 Consult Physician Routine Consulting Provider: Nik Evangelista Consult Reason/Comments: bacteremia Do you want consulting provider notified?: Yes 10/14/21 11:05 Consult Physician Routine Consulting Provider: Sixto Mars Consult Reason/Comments: JESSICA Do you want consulting provider notified?: Yes Primary care physician: Claudio Ortiz MD Hospital Course: Group B streptococcus bacteremia Multiple falls at home likely due to the above versus chronic debility Cellulitis of the left lower extremity with superficial wound Chronic systolic heart failure Elevated troponin Atrial fibrillation status post pacemaker Diabetes mellitus Hypertension 76-year-old male with diabetes, hypertension, atrial fibrillation and chronic back pain who came into the ED with multiple falls at home, lower back pain and reported that he was having chills and rigors and memory issues. In the emergency room, patient was afebrile, 140/61, heart rate 76, 96% on room air. Initial CBC was positive for leukocytosis to 19.7, platelet count of 135. Initial chemistry showed sodium of 134, potassium of 3.4, carbon dioxide of 18. Initial BNP was 2290. Initial urinalysis showed 3+ glucose, 1+ ketones. Acetone was negative. Lumbar spine x-ray showed multiple multilevel disc degenerative changes. Brain CT showed no acute intracranial process. Chest x- ray showed cardiomegaly with low lung volumes. Tube/fib x-ray showed subcutaneous edema, no fractures. Foot x-ray showed calcaneal spurring with no evidence of osteomyelitis. Blood cultures grew group B streptococcus. Patient was treated with antibiotics, which were ultimately tapered down to cefazolin every 8 hours. ID was consulted. They recommended lumbar CT to identify a source of infection, but this did not show any definitive evidence of discitis. Patient underwent JESSICA which was negative for endocarditis. Ultimately, it was recommended the patient completed 6 weeks of antibiotics for high suspicion of lumbar discitis, and patient received a PICC line on 10/19 was subsequently discharged with ceftriaxone daily to be given in the infusion center. Patient will follow-up with primary care physician, cardiology, primary care physician. I spent 45 minutes coordinating this complex discharge, discharge date 10/19. Gen: awake, alert HEENT: normocephalic, atraumatic, good hearing acuity, moist mucous membranes Resp: good air exchange, breathing comfortably with no accessory muscle use CVS: good distal perfusion x 4, GI: soft, NTTP, ND : no SPT, no CVAT, mckinney catheter not present MSK: no pitting edema, no clubbing Neuro: non-focal, moving all extremities Psych: cooperative, euthymic mood Patient Condition at Discharge: Good Plan - Discharge Summary Discharge Rx Participant: No New Discharge Prescriptions: New Acetaminophen Tab [Tylenol] 650 mg PO Q6HR PRN tab PRN Reason: Mild Pain Or Fever > 100.5 Continue Apixaban [Eliquis] 5 mg PO BID Clopidogrel [Plavix] 75 mg PO DAILY #90 tablet Losartan [Cozaar] 25 mg PO DAILY Metoprolol Tartrate [Lopressor] 50 mg PO DAILY 60 Days #60 tab Rosuvastatin Calcium [Crestor] 40 mg PO DAILY Cholecalciferol [Vitamin D3 (125 Mcg = 5000 Iu)] 125 mcg PO DAILY Glimepiride [Amaryl] 4 mg PO DAILY 30 Days #30 tab Metoprolol Tartrate [Lopressor] 25 mg PO HS Cyanocobalamin (Vitamin B-12) [Vitamin B-12] 1,000 mcg PO DAILY Discontinued amLODIPine BESYLATE 10 mg PO DAILY Discharge Medication List Apixaban [Eliquis] 5 mg PO BID 03/24/21 [History] Clopidogrel [Plavix] 75 mg PO DAILY #90 tablet 03/30/21 [Rx] Cholecalciferol [Vitamin D3 (125 Mcg = 5000 Iu)] 125 mcg PO DAILY 08/03/21 [History] Losartan [Cozaar] 25 mg PO DAILY 08/03/21 [History] Rosuvastatin Calcium [Crestor] 40 mg PO DAILY 08/03/21 [History] Glimepiride [Amaryl] 4 mg PO DAILY 30 Days #30 tab 08/06/21 [Rx] Metoprolol Tartrate [Lopressor] 50 mg PO DAILY 60 Days #60 tab 08/06/21 [Rx] Cyanocobalamin (Vitamin B-12) [Vitamin B-12] 1,000 mcg PO DAILY 10/12/21 [His tory] Metoprolol Tartrate [Lopressor] 25 mg PO HS 10/12/21 [History] Acetaminophen Tab [Tylenol] 650 mg PO Q6HR PRN tab 10/18/21 [Rx] Follow up Appointment(s)/Referral(s): [facility] [NON-STAFF] - 10/20/21 11:00 am None,Stated [REFERRING] - 1-2 days Nik Evangelista MD [STAFF PHYSICIAN] - 11/09/21 2:00 pm Discharge Disposition: HOME WITH HOME HEALTH SERVICES
[2021-10-19 16:54] LABS: Glucose,Whole Blood 193 mg/dL (70-110)
== END 2021-10-19 18:24 | disposition home health service (06) | DRG 602 ==
LOC: EC 17:17 → 6NMEDSUR 21:24 → 3SCARD 10-13 00:20 → OBSVTOIN 10-13 13:11
PROVIDERS: ADMIT Internal Medicine; ATTEND Internal Medicine
PROC: B24BZZ4 Ultrasonography of Heart with Aorta, Transesophageal (ICD-10-PCS; 2021-10-15)
PROC: 02HV33Z Insertion of Infusion Device into Superior Vena Cava, Percutaneous Approach (ICD-10-PCS; principal; 2021-10-19 10:30)
DX: L03.116 Cellulitis of left lower limb (principal); G93.41 Metabolic encephalopathy; I50.22 Chronic systolic (congestive) heart failure; E87.1 Hypo-osmolality and hyponatremia; E87.2 Acidosis; I42.9 Cardiomyopathy, unspecified; I48.21 Permanent atrial fibrillation; I48.92 Unspecified atrial flutter; R78.81 Bacteremia; S09.90XA Unspecified injury of head, initial encounter; I70.0 Atherosclerosis of aorta; I89.0 Lymphedema, not elsewhere classified; B95.1 Streptococcus, group B, as the cause of diseases classified elsewhere; E11.65 Type 2 diabetes mellitus with hyperglycemia; E78.5 Hyperlipidemia, unspecified; E87.6 Hypokalemia; G89.29 Other chronic pain; I08.0 Rheumatic disorders of both mitral and aortic valves; R77.8 Other specified abnormalities of plasma proteins; I11.0 Hypertensive heart disease with heart failure; I25.10 Atherosclerotic heart disease of native coronary artery without angina pectoris; I27.20 Pulmonary hypertension, unspecified; I49.5 Sick sinus syndrome; M77.30 Calcaneal spur, unspecified foot; R29.6 Repeated falls; W18.30XA Fall on same level, unspecified, initial encounter; Z79.01 Long term (current) use of anticoagulants; Z79.02 Long term (current) use of antithrombotics/antiplatelets; Z79.2 Long term (current) use of antibiotics; Z79.84 Long term (current) use of oral hypoglycemic drugs; Z79.899 Other long term (current) drug therapy; Z85.72 Personal history of non-Hodgkin lymphomas; Z87.442 Personal history of urinary calculi; Z87.891 Personal history of nicotine dependence; Z95.0 Presence of cardiac pacemaker; Z95.5 Presence of coronary angioplasty implant and graft
CPT/HCPCS: 36415; 36573; 70450; 71046; 72100; 72132; 80048; 80053; 81003; 82009; 82140; 82550; 83036; 83880; 84145; 84443; 84484; 85025; 85610; 85652; 86140; 87040; 87077; 87186; 93005; 93306; 93312; 93320; 93325; 96365; 99285

== ENCOUNTER 2021-12-29 08:28 | Day surgery (SDC) | payer MEDICARE ==
[2021-12-27 15:10] VITALS: BMI 40.1
[~2021-12-29 08:28] MED LIST changes: -ALPRAZolam 0.25 MG TAB PO PRN; -ALPRAZolam 0.5 MG TAB PO PRN; -ASPIRIN 325 MG TAB PO STA; -ATORVASTATIN 80 MG TAB PO STA; -NITROGLYCERIN SL TABS 0.4 MG TAB SUBLINGUAL PRN; +SODIUM CHLORIDE 0.9% 1,000 ML IV SCH; -SODIUM CHLORIDE 0.9% 1,000 ML in EMPTY BAG 1 BAG IV SCH
[2021-12-29 09:40] VITALS: RESP 18; TEMP 98.1
[2021-12-29 09:41] LABS: Basophils % (A) 1 %; Eosinophils # (A) 0.1 k/uL (0-0.7); Eosinophils % (A) 2 %; HCT 48.3 % (39.0-53.0); HGB 16.9 gm/dL (13.0-17.5); Lymphocytes # (A) 1.3 k/uL (1.0-4.8); Lymphocytes % (A) 19 %; MCH 30.2 pg (25.0-35.0); MCV 86.3 fL (80.0-100.0); Mean Platelet Volume 7.9; Monocytes # (A) 0.6 k/uL (0-1.0); Monocytes % (A) 9 %; Neutrophils # (A) 4.5 k/uL (1.3-7.7); Neutrophils % (A) 68 %; Platelet Count 135 k/uL (150-450); WBC 6.7 k/uL (3.8-10.6)
[2021-12-29 09:42] LABS: Glucose,Whole Blood 229 mg/dL (70-110)
[2021-12-29 09:55] LABS: African American GFR (CKD) >90 (>60 ml/min/1.73 sqM); Anion Gap 12 mmol/L; Blood Urea Nitrogen 20 mg/dL (9-20); Calcium 9.1 mg/dL (8.4-10.2); Carbon Dioxide 24 mmol/L (22-30); Chloride 103 mmol/L (98-107); Glucose 221 mg/dL (74-99); Non-African American GFR(CKD) 85 (>60 ml/min/1.73 sqM); Potassium 4.1 mmol/L (3.5-5.1); Sodium 139 mmol/L (137-145)
--- NOTE | 2021-12-29 11:37 | P.EPPROC ---
- EP Procedure Note Electrophysiology Procedure Note: Diagnosis Worsening heart failure Twelve-lead EKG shows RV pacing despite the fact that he has a his bundle/conduction system lead Cine fluoroscopy His bundle lead in excellent position and stable Metronic biventricular pacemaker interrogated Nonselective His bundle pacing Threshold at 0.5 V at 1 ms RV threshold at 0.75 V at 0.5 ms His His bundle and RV pacing was simultaneous hence QRS seemed wide Changes made Preferential His bundle pacing His bundle to RV offset of 80 ms to avoid RV pacing His bundle and reprogrammed at 1.5 V at 1 ms which is 3 times the threshold RV pacing 80 ms after His bundle pacing programmed to 1.5 V at 0.5 ms In addition sensitivity was at 1.2 mV This was reprogrammed to 0.9mV Device programmed to VVIR 60-130 bpm Sensitivity at 0.9 mV
[2021-12-29 11:41] VITALS: BP 134/72; PULSE 76
[2021-12-29] MEDS ORDERED: INSULIN ASPART (NovoLOG) 100 UNIT/ML VIAL SQ SCH (12:30)
== END 2021-12-29 12:10 | disposition home or self-care (01) ==
LOC: CATHEP 08:28
PROVIDERS: ATTEND Internal Medicine Clinical Cardiac Electrophysiology
DX: I11.0 Hypertensive heart disease with heart failure (principal); I50.9 Heart failure, unspecified; E11.9 Type 2 diabetes mellitus without complications; E78.5 Hyperlipidemia, unspecified; F17.210 Nicotine dependence, cigarettes, uncomplicated
CPT/HCPCS: 80048; 85025; 93281

== ENCOUNTER → 2022-03-03 | Outpatient (CLI) | payer MEDICARE ==
--- NOTE | 2022-03-03 12:47 | US ---
EXAMINATION TYPE: US kidneys/renal and bladder DATE OF EXAM: 03/03/2022 COMPARISON: CLINICAL HISTORY: R31.29 MICROSCOPIC HEMATURIA. Patient states he has bladder leakage and urine frequ ency. Hx renal stones. EXAM MEASUREMENTS: Right Kidney: 11.0 x 5.9 x 6.3 cm Left Kidney: 12.8 x 4.9 x 6.4 cm Right Kidney: No hydronephrosis or masses seen Left Kidney: Lower pole echogenic focus, nonshadowing- 0.5 x 0.6 cm Bladder: distended, anechoic Bilateral Jets seen IMPRESSION: 1. Nonobstructing inferior pole left renal stone.
== END | disposition home or self-care (01) ==
LOC: RADUSWWP 10:26
PROVIDERS: ATTEND Internal Medicine
DX: N20.0 Calculus of kidney (principal); R31.29 Other microscopic hematuria
CPT/HCPCS: 76770

== ENCOUNTER 2022-10-08 12:35 | Emergency (ER) | payer MEDICARE ==
[2022-10-08 12:45] VITALS: BP 121/67; PULSE 78; RESP 20; TEMP 98.1
--- NOTE | 2022-10-08 13:10 | ED ---
General Adult HPI - General Chief complaint: Skin/Abscess/Foreign Body Stated complaint: bump on back Time Seen by Provider: 10/08/22 12:46 Source: patient, RN notes reviewed, old records reviewed Mode of arrival: ambulatory Limitations: no limitations - History of Present Illness Initial comments: 77-year-old male history of type 2 diabetes presents for evaluation of pain and swelling to his left upper buttock. Patient denies fever. He states he has had a gluteal abscess in the past which required incision and drainage and he states that this feels similar. - Related Data Home Medications Medication Instructions Recorded Confirmed Apixaban [Eliquis] 5 mg PO BID 03/24/21 12/27/21 Cholecalciferol [Vitamin D3 (125 125 mcg PO DAILY 08/03/21 12/27/21 Mcg = 5000 Iu)] Losartan [Cozaar] 25 mg PO DAILY 08/03/21 12/27/21 Rosuvastatin Calcium [Crestor] 40 mg PO DAILY 08/03/21 12/27/21 Cyanocobalamin (Vitamin B-12) 1,000 mcg PO DAILY 10/12/21 12/27/21 [Vitamin B-12] Empagliflozin [Jardiance] 10 mg PO DAILY 12/27/21 12/27/21 Previous Rx's Medication Instructions Recorded Clopidogrel [Plavix] 75 mg PO DAILY #90 tablet 03/30/21 Glimepiride [Amaryl] 4 mg PO DAILY 30 Days #30 tab 08/06/21 Acetaminophen Tab [Tylenol] 650 mg PO Q6HR PRN tab 10/18/21 Metoprolol Succinate (ER) [Toprol 50 mg PO DAILY #90 tab 12/29/21 XL] Cephalexin [Keflex] 500 mg PO Q6HR 10 Days #40 cap 10/08/22 Sulfamethox-Tmp 800-160Mg [Bactrim 1 tab PO Q12HR 10 Days #20 tab 10/08/22 DS 800-160 mg] Allergies Allergy/AdvReac Type Severity Reaction Status Date / Time Milk Containing Products Allergy Diarrhea Verified 10/08/22 12:45 [Dairy] Review of Systems ROS Statement: Those systems with pertinent positive or pertinent negative responses have been documented in the HPI. ROS Other: All systems not noted in ROS Statement are negative. 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; KIDNEY STONES,sepsis tx with IV antibiotics 7 weeks History of Any Multi-Drug Resistant Organisms: None Reported Past Surgical History: Cardiac Ablation, Heart Catheterization With Stent, Joint Replacement, Pacemaker Additional Past Surgical History / Comment(s): bilateral knee replacement, pilonidal cyst X2, right bunionectomy; PORT-A-CATH 07/17-later removed,heart stent Past Anesthesia/Blood Transfusion Reactions: No Reported Reaction Date of Last Stent Placement:: unk Type of Cardiac Device: Permanent Pacemaker Device Placement Date:: 2018 POSSIBLE DATE Past Psychological History: No Psychological Hx Reported Smoking Status: Former smoker Past Alcohol Use History: None Reported Past Drug Use History: None Reported - Past Family History Sister(s) Family Medical History: Cancer Additional Family Medical History / Comment(s): several sisters with CA General Exam Limitations: no limitations General appearance: alert, in no apparent distress Head exam: Present: atraumatic, normocephalic Eye exam: Present: normal appearance, PERRL ENT exam: Present: normal exam Neck exam: Present: normal inspection. Absent: tenderness, meningismus Respiratory exam: Present: normal lung sounds bilaterally. Absent: respiratory distress Cardiovascular Exam: Present: regular rate, normal rhythm Extremities exam: Present: other (Left medial upper gluteal abscess with surrounding cellulitis, central fluctuance) Neurological exam: Present: alert, oriented X3 Psychiatric exam: Present: normal affect, normal mood Course Vital Signs 10/08/22 12:42 Temperature 98.1 F Pulse Rate 78 Respiratory 20 Rate Blood Pressure 121/67 O2 Sat by Pulse 97 Oximetry Procedures - Incision & Drainage Consent Obtained: verbal consent Indication: Gluteal abscess Site: buttock Size (cm): 4 I&D Cleaning Method: Chloroprep Sterile Field Used?: Yes Scalpel Used: #11 Needle Aspiration Performed?: No Irrigation Performed?: No I&D Drainage Obtained: Pus, Blood Packing: Iodoform Culture Obtained?: No Patient Tolerated Procedure: well Medical Decision Making - Medical Decision Making Was pt. sent in by a medical professional or institution (, PA, SHELL [employer]EMAKER, urgent care, hospital, or shelter...) When possible be specific @ -No Did you speak to anyone other than the patient for history (EMS, parent, family, police, friend...)? What history was obtained from this source @ -No Did you review nursing and triage notes (agree or disagree)? Why? @ -I reviewed and agree with nursing and triage notes Were old charts reviewed (outside hosp., previous admission, EMS record, old EKG, old radiological studies, urgent care reports/EKG's, shelter records)? Report findings @ -No old charts were reviewed Differential Diagnosis (chest pain, altered mental status, abdominal pain women, abdominal pain men, vaginal bleeding, weakness, fever, dyspnea, syncope, headache, dizziness, GI bleed, back pain, seizure, CVA, palpatations, mental health, musculoskeletal)? @ Cellulitis, pilonidal abscess, gluteal abscess EKG interpreted by me (3pts min.). @ -As above X-rays interpreted by me (1pt min.). @ -None done CT interpreted by me (1pt min.). @ -None done U/S interpreted by me (1pt. min.). @ -None done What testing was considered but not performed or refused? (CT, X-rays, U/S, labs)? Why? @ -None What meds were considered but not given or refused? Why? @ -None Did you discuss the management of the patient with other professionals (professionals i.e. , PA, SHE[employer] COREMAKER, lab, RT, psych nurse, perinatal social worker, primary care sales representative, teacher, security police officer, case specialist)? Give summary @ -No Was smoking cessation discussed for >3mins.? @ -No Was critical care preformed (if so, how long)? @ -No Were there social determinants of health that impacted care today? How? (Homelessness, low income, unemployed, alcoholism, drug addiction, transportation, low edu. Level, literacy, decrease access to med. care, [place] [facility], rehab)? @ -No Was there de-escalation of care discussed even if they declined (Discuss DNR or withdrawal of care, Hospice)? DNR status @ -No What co-morbidities impacted this encounter? (DM, HTN, Smoking, COPD, CAD, Cancer, CVA, ARF, Chemo, Hep., AIDS, mental health diagnosis, sleep apnea, morbid obesity)? @ -[Diabetes Was patient admitted / discharged? Hospital course, mention meds given and route, prescriptions, significant lab abnormalities, going to OR and other p ertinent info. @ -[77-year-old male with left medial upper gluteal abscess with central fluctuance. I was able to incise and drain a significant amount of blood and pus. Iodoform packing was placed. Patient was given strict return parameters he will monitor for systemic symptoms and worsening pain or swelling in the region. He will start Keflex and Bactrim today. Undiagnosed new problem with uncertain prognosis? @ -No Drug Therapy requiring intensive monitoring for toxicity (Heparin, Nitro, Insulin, Cardizem)? @ -No Were any procedures done? @ -yes incision and drainage Diagnosis/symptom? @ Gluteal abscess with cellulitis Acute, or Chronic, or Acute on Chronic? @ -Acute Uncomplicated (without systemic symptoms) or Complicated (systemic symptoms)? @ -default Side effects of treatment? @ -No Exacerbation, Progression, or Severe Exacerbation? @ -No Poses a threat to life or bodily function? How? (Chest pain, [place], [place], pneumonia, PE, COPD, DKA, ARF, appy, cholecystitis, CVA, Diverticulitis, Homicidal, Suicidal, threat to staff... and all critical care pts) @ -[Low risk at this time Disposition Clinical Impression: Cellulitis, Abscess Disposition: HOME SELF-CARE Condition: Fair Instructions (If sedation given, give patient instructions): Abscess Incision and Drainage (ED), Abscess (ED) Prescriptions: Sulfamethox-Tmp 800-160Mg [Bactrim DS 800-160 mg] 1 tab PO Q12HR 10 Days #20 tab Cephalexin [Keflex] 500 mg PO Q6HR 10 Days #40 cap Is patient prescribed a controlled substance at d/c from ED?: No Referrals: Claudio Ortiz MD [Primary Care Provider] - 1-2 days Time of Disposition: 13:07
== END 2022-10-08 13:21 | disposition home or self-care (01) ==
LOC: EC 12:35
DX: L02.31 Cutaneous abscess of buttock (principal); E11.9 Type 2 diabetes mellitus without complications; I10 Essential (primary) hypertension; M19.90 Unspecified osteoarthritis, unspecified site; E78.5 Hyperlipidemia, unspecified; Z79.1 Long term (current) use of non-steroidal anti-inflammatories (NSAID); Z79.899 Other long term (current) drug therapy; Z87.891 Personal history of nicotine dependence; Z91.011 Allergy to milk products; Z79.84 Long term (current) use of oral hypoglycemic drugs
CPT/HCPCS: 10060; 99282

== ENCOUNTER → 2023-12-12 | Outpatient (CLI) | payer MEDICARE ==
--- NOTE | 2023-12-12 19:07 | US ---
EXAMINATION TYPE: US bladder DATE OF EXAM: 12/12/2023 COMPARISON: NONE CLINICAL INDICATION: Male, 78 years old with history of R39.81 FUNCTIONAL URINARY INCONTINENCE N40.1; TECHNIQUE: Grayscale and color doppler imaging of the bilateral kidneys and urinary bladder. FINDINGS: EXAM MEASUREMENTS: Post Void Residual Volume: 141.8 mL Color Doppler performed to assess ureteral jets. Bilateral Jets seen: yes Normal Post Void Residual (less than 50ml): no No bladder wall thickening or filling defect identified. IMPRESSION: Abnormal post void residual of 141.8 mL. [facility], , 12/12/2023 7:05 PM
== END | disposition home or self-care (01) ==
LOC: RADUSWWP 13:21
PROVIDERS: ATTEND Psychiatry & Neurology Neurology
DX: N40.1 Benign prostatic hyperplasia with lower urinary tract symptoms (principal); R39.81 Functional urinary incontinence
CPT/HCPCS: 76857

== ENCOUNTER → 2023-12-13 | Outpatient (CLI) | payer MEDICARE ==
--- NOTE | 2023-12-13 18:02 | CT ---
EXAMINATION TYPE: CT brain wo con DATE OF EXAM: 12/13/2023 COMPARISON: 10/12/21 HISTORY: Change in memory, loss of hearing, and weakness x [address] DLP: [address] of the brain was performed. The ventricles, basal cisterns and sulci overlying the cerebral convexities demonstrate mild enlargem ent. There is no evidence for intracranial hemorrhage or sulcal effacement. There is decreased attenuation about the periventricular white matter and deep white matter of both c erebral hemispheres, compatible with chronic small vessel ischemia. Differential diagnosis does inclu de demyelination. No mass effects are seen.No midline shift. Osseous calvarium is intact. If symptoms persist consider MRI. IMPRESSION: 1. Age related atrophic and chronic small vessel ischemic change without acute intracranial process s een at this time. [facility], , 12/13/2023 6:00 PM
== END | disposition home or self-care (01) ==
LOC: RADCTMAIN 17:06
PROVIDERS: ATTEND Psychiatry & Neurology Neurology
DX: I67.9 Cerebrovascular disease, unspecified (principal); G91.2 (Idiopathic) normal pressure hydrocephalus; G93.89 Other specified disorders of brain; R41.3 Other amnesia; I67.82 Cerebral ischemia; G31.1 Senile degeneration of brain, not elsewhere classified
CPT/HCPCS: 70450

== ENCOUNTER → 2023-12-27 | Outpatient (CLI) | payer MEDICARE | END | disposition home or self-care (01) | LOC: LABWHC1 15:43 | PROVIDERS: ATTEND Psychiatry & Neurology Neurology | DX: R41.82 Altered mental status, unspecified (principal); E53.9 Vitamin B deficiency, unspecified | CPT/HCPCS: 36415; 82140; 82306; 82607; 82747; 83036; 84207 ==

== ENCOUNTER 2024-05-08 09:28 | Day surgery (SDC) | payer MEDICARE ==
[2024-05-06 11:06] VITALS: BMI 35.6
[~2024-05-08 09:28] MED LIST changes: +ALPRAZolam 0.25 MG TAB PO PRN; +ALPRAZolam 0.5 MG TAB PO PRN; +ASPIRIN 325 MG TAB PO STA; +NITROGLYCERIN SL TABS 0.4 MG TAB SUBLINGUAL PRN; -SODIUM CHLORIDE 0.9% 1,000 ML IV SCH
[2024-05-08] MEDS: SODIUM CHLORIDE 0.9% 1,000 ML in EMPTY BAG 1 BAG IV SCH (09:39)
[2024-05-08] MEDS: IV FLUID CONTINUATION 1,000 ML IV ONE (09:40)
[2024-05-08] MEDS: ASPIRIN 81 MG PO STA (09:48)
[2024-05-08 10:01] VITALS: RESP 16; TEMP 97.4
[2024-05-08 10:03] LABS: Glucose,Whole Blood 133 mg/dL (70-110)
[2024-05-08 10:18] LABS: Mean Platelet Volume 7.3; Platelet Count 144 k/uL (150-450)
[2024-05-08] MEDS: MIDAZOLAM 2 MG/2 ML VIAL IVP ONE (10:45)
[2024-05-08] MEDS: fentaNYL (PF) 50 MCG/1 ML VIAL IVP ONE (10:45)
[2024-05-08] MEDS: VERAPAMIL SYRINGE (5 MG/10 ML) INTRAARTER ONE (10:45)
[2024-05-08] MEDS: LIDOCAINE 1% INJ 10MG/ML (20 ML MDV) SQ ONE (10:45)
[2024-05-08] MEDS: HEPARIN SODIUM,PORCINE 10,000 UNIT in SODIUM CHLORIDE 0.9% 1,000 ML IRRIGATION PRN (10:52)
[2024-05-08] MEDS: HEPARIN SODIUM,PORCINE (1 ML) 2,500 UNIT in SODIUM CHLORIDE 0.9% 250 ML IRRIGATION PRN (10:52)
[2024-05-08] MEDS: HEPARIN SODIUM 1,000 UN/ML (10ML VL) IVP ONE (10:53)
[2024-05-08] MEDS: IOPAMIDOL-370 100ML BTL INJ ONE (11:02)
--- NOTE | 2024-05-08 11:17 | P.CARDCATH ---
Description of Procedure: PROCEDURES PERFORMED: Left heart catheterization, bilateral coronary angiography, ultrasound guided arterial access INDICATION: Abnormal stress test CONSENT:I have discussed the risks, benefits and alternative therapies for the above-mentioned procedure and for both sedation/analgesia as well as necessary blood product administration, if indicated, as they pertain to this patient. The patient has indicated understanding and acceptance of the risks and procedures discussed. PROCEDURE: After the risks, benefits and alternatives of the above mentioned procedure explained in detail with the patient, informed consent was obtained. Patient was taken to the catheterization lab and prepped and draped in usual fashion. Ultrasound guidance was used to assess for arterial access. 1% lidocaine was used to anesthetize the right radial artery. A 6-Montenegrin sheath was placed in the right radial artery using modified Seldinger technique and ultrasound guidance. There was a high right radial artery takeoff but easily passed catheters. Left coronary angiography was performed with a 6-Montenegrin CLS 4.0 guide catheter and right coronary angiography was performed with a 5-Montenegrin AR2 catheter in various views. A 5-Montenegrin AR2 catheter was inserted into the left ventricle and pressure measurements were obtained. The right radial sheath was removed and a TR band was placed with hemostasis achieved. The patient tolerated the procedure well. Patient was transported back to the post catheterization holding area in stable condition. Conscious Sedation: Patient was monitored under the direct supervision of myself for conscious sedation using Versed and fentanyl for a total duration of 16 minutes HEMODYNAMICS: Ao: 130/71 LV: 134/5, LVEDP 16 SELECTIVE CORONARY ARTERIOGRAPHY: LEFT MAIN: The left main is a large caliber vessel which bifurcates into the LAD and circumflex. There is 30% diffuse stenosis. LEFT ANTERIOR DESCENDING CORONARY ARTERY: LAD is a large caliber vessel which wraps around to the apex. There is diffuse 10-20% stenosis and patent mid LAD stent. There is a 30-40% stenosis proximal to the LAD stent. LEFT CIRCUMFLEX CORONARY ARTERY: Left circumflex is a large caliber vessel with mild 10-20% stenosis. OM1 is moderate caliber and has a proximal 40% stenosis. The circumflex gives off the PDA and is the dominant vessel. RIGHT CORONARY ARTERY: The right coronary artery is a small to moderate caliber vessel which gives off an acute marginal branch and if nondominant. There is 20-30% stenosis FINAL IMPRESSION: 1. CAD as described above including left main 30% stenosis, diffuse mild LAD disease with more focal 30 to 40% mid LAD stenosis, patent LAD stent, OM1 40% stenosis 2. High normal left sided filling pressures PLAN: 1. Aggressive risk factor modification per most recent ACC/AHA guidelines. 2. Follow-up in the office in 1-2 weeks.
[2024-05-08 16:53] VITALS: BP 128/72; PULSE 60
== END 2024-05-08 15:10 | disposition home or self-care (01) ==
LOC: CATHCVL 09:28
PROVIDERS: ATTEND Internal Medicine
DX: I25.10 Atherosclerotic heart disease of native coronary artery without angina pectoris (principal); E11.9 Type 2 diabetes mellitus without complications; I48.92 Unspecified atrial flutter; Z79.02 Long term (current) use of antithrombotics/antiplatelets; Z79.01 Long term (current) use of anticoagulants; Z79.899 Other long term (current) drug therapy; Z79.84 Long term (current) use of oral hypoglycemic drugs; Z95.5 Presence of coronary angioplasty implant and graft
CPT/HCPCS: 99152; 93458; 85049; J2250; J1644 ×3; J2003; Q9967; J3010

== ENCOUNTER → 2024-06-12 | Outpatient (CLI) | payer MEDICARE ==
[2024-06-12 15:05] LABS: African American GFR (CKD) >90 (>60 ml/min/1.73 sqM); Blood Urea Nitrogen 28 mg/dL (9-20); Non-African American GFR(CKD) 83 (>60 ml/min/1.73 sqM)
--- NOTE | 2024-06-15 21:38 | CT ---
EXAMINATION TYPE: CT ChestAbdPelvis w con DATE OF EXAM: 06/12/2024 4:09 PM COMPARISON: r CLINICAL INDICATION: Male, 79 years old with history of R63.4 WEIGHT LOSS, Abnormal labs, great weigh tloss without exercise or change in diet TECHNIQUE: CT ChestAbdPelvis w con , with sagittal coronal reformats. If MIP/3-D images were created, there are created on a separate workstation. Contrast used:100 mL of Isovue 300 with IV Contrast, (none if empty) Oral contrast used: with Oral Contrast (none if empty) CT DLP: 2137.6 mGycm, Automated exposure control for dose reduction was used. FINDINGS: CT CHEST: Portion of the thyroid visualized is normal. No suspicious lung nodules or focal infiltrates are present. No enlarged mediastinal or hilar adenopathy is evident. Moderate coronary artery calcifications pres ent. The ascending aorta diameter at the level of the main pulmonary artery is 3.4 cm. The main pulmonary artery diameter at the bifurcation is 2.[address] ABDOMEN: Liver: Normal Spleen: Normal Pancreas: Normal Adrenal glands: The adrenal glands are normal. Gallbladder: Normal Kidneys: No masses are evident. No hydronephrosis is present. Small cyst The superior pole right kidney. Delayed images were obtained through the kidneys, which remain unrem arkable. Aorta: Vascular calcification is within the aorta. Inferior vena cava: Normal. CT PELVIS: Loops of bowel within the abdomen and pelvis are normal. Fecal debris is within the colon. No obstruc tion is evident. There are loops of bowel which are incompletely distended or lack oral contrast l imiting their evaluation. Appendix: Normal as visualized. Urinary bladder: Normal. Genitourinary structures: Prostate is somewhat prominent. Osseous structures: No suspicious lytic or sclerotic lesions. Degenerative disc change and facet hype rtrophy is present L5-S1. Some facet hypertrophy is within the lower lumbar spine. Lymphadenopathy: No suspicious enlarged axillary adenopathy is evident. No enlarged mediastinal or hi lar adenopathy is evident. There is a small left hilar lymph node present previously no retrocrural a denopathy. No suspicious periaortic or retrocaval adenopathy. Couple of small inguinal lymph nodes ar e present. IMPRESSION: 1. No suspicious changes to suggest primary or metastatic neoplasm. [facility], , 06/15/2024 9:36 PM
== END | disposition home or self-care (01) ==
LOC: RADCTMAIN 14:08
PROVIDERS: ATTEND Internal Medicine
DX: N28.1 Cyst of kidney, acquired (principal); R63.4 Abnormal weight loss
CPT/HCPCS: 82565; 84520; 71260; 74177; 36415; Q9967

== ENCOUNTER → 2024-08-30 | Outpatient (CLI) | payer MEDICARE ==
--- NOTE | 2024-08-30 09:27 | CT ---
EXAMINATION TYPE: CT brain wo con DATE OF EXAM: 08/30/2024 9:13 AM COMPARISON: 12/13/2023 CLINICAL INDICATION: Male, 79 years old with history of R51.9 headache, fall, hit head and headaches since, TECHNIQUE: Examination was done in axial plane without intravenous contrast. Coronal and sagittal r econstructions performed. CT DLP: 1145 mGycm, Automated exposure control for dose reduction was used. FINDINGS: There is no evidence of acute intracranial hemorrhage, acute ischemic changes, mass, mass-effect, or extra-axial fluid collection. There is no effacement of cerebral sulci or basal subarachnoid cister ns. There is no hydrocephalus. There is no midline shift. Verma-white matter distinction is preserv ed. Atherosclerotic calcifications in the carotid siphons. Mild generalized supratentorial volume loss. M oderate patchy right ventricular white matter hypodensities. There is mild mucosal thickening ethmoid air cells and floors of the maxillary sinuses. Prominent rightward nasal septal deviation. Orbits an d globes are intact. Mastoid air cells are well pneumatized. IMPRESSION: 1. Mild generalized atrophy and moderate patchy burden of chronic small vessel ischemic disease. 2. No acute intracranial abnormality seen. 3. Mild chronic ethmoid and maxillary sinus disease. Rightward nasal septal deviation. [facility], , 08/30/2024 9:25 AM
== END | disposition home or self-care (01) ==
LOC: RADCTMAIN 08:54
PROVIDERS: ATTEND Internal Medicine
DX: I67.82 Cerebral ischemia (principal); J32.0 Chronic maxillary sinusitis; J34.89 Other specified disorders of nose and nasal sinuses; J34.2 Deviated nasal septum
CPT/HCPCS: 70450